=== PATIENT | male | born 1960 | race Two or more races ===

== ENCOUNTER 2020-10-13 11:03 | Outpatient (REF) | payer MEDICARE, MEDICAID, SELFPAY ==
--- NOTE | ~2020-10-13 | XR_ITS ---
EXAMINATION: XR KNEE, LEFT CLINICAL INFORMATION: Pain COMPARISON: Previous exam January 2019 TECHNIQUE: Four views of the left knee. FINDINGS: Bone alignment is normal. No fracture or dislocation is seen. There is a new small soft tissue calcification or ossification projecting over the medial femoral tibial joint. This is seen on the AP and tunnel view only and measures 3 x 5 mm. There may be faint medial meniscal calcification. Joint spaces are otherwise normal. There is no joint effusion. XR/XR knee LT 4V IMPRESSION: New faint soft tissue calcification or ossification projecting over the medial femoral tibial joint.
== END 2020-10-13 11:04 | disposition home or self-care (01) ==
LOC: HO.XRAY 11:03
PROVIDERS: Visit Provider Nurse Practitioner Family
DX: M25.562 Pain in left knee (principal)
CPT/HCPCS: 73564

== ENCOUNTER 2020-12-01 08:07 | Outpatient (REF) | payer MEDICARE, MEDICAID, SELFPAY ==
--- NOTE | ~2020-12-01 | XR_ITS ---
EXAMINATION: XR knee LT 3V CLINICAL INFORMATION: Reason for Exam M25.569 - Pain in unspecified knee COMPARISON: None available at the time of this dictation. TECHNIQUE: Bilateral frontal standing, left lateral and patella sunrise view. FINDINGS: BONES: No fracture or dislocation is present. Postsurgical changes from prior ORIF distal femur right side. JOINTS: Mild narrowing of joint spaces suggest underlying degenerative osteoarthritis. No joint effusion. Patella properly positioned. SOFT TISSUE: Normal XR/XR knee LT 3V IMPRESSION: 1. Mild degenerative osteoarthritis left knee. 2. Postsurgical changes, ORIF distal right femur.
== END 2020-12-01 08:08 | disposition home or self-care (01) ==
LOC: HO.HOSX 08:07
PROVIDERS: Visit Provider Physician Assistant
DX: M25.561 Pain in right knee (principal); M25.562 Pain in left knee; M17.12 Unilateral primary osteoarthritis, left knee
CPT/HCPCS: 73562; 99202

== ENCOUNTER 2021-01-12 07:29 | Outpatient (REF) | payer MEDICARE, MEDICAID, SELFPAY ==
--- NOTE | ~2021-01-12 | US_ITS ---
EXAMINATION: US ABDOMEN COMPLETE CLINICAL INFORMATION: Abdominal distention. COMPARISON: Ultrasound abdomen 08/25/2018 and 12/15/2006. TECHNIQUE: Real-time imaging of the abdominal viscera. FINDINGS: PANCREAS: Normal. ABDOMINAL AORTA: The proximal, mid, and distal segments are normal in caliber. INFERIOR VENA CAVA: Visualized portions are normal. LIVER: Normal. The liver is normal in size. The liver contour is normal. Parenchymal echogenicity is normal. No focal hepatic lesion. There is no intrahepatic biliary duct dilatation seen. There is hepatopedal flow seen in the portal vein on Doppler exam. GALLBLADDER: Surgically absent. COMMON BILE DUCT: Normal in caliber measuring 0.4 cm in diameter. RIGHT KIDNEY: There are multiple anechoic cysts. 1. Upper pole cyst measures 0.8 x 0.5 x 0.8 cm. 2. Midpole cyst measures 1.6 x 1.4 x 1.5 cm. 3. Lower pole cyst measures 1.3 x 1.5 x 1.6 cm. 4. Lower pole cyst measures 0.9 x 0.7 x 0.7 cm. 5. Midpole cyst measures 1.1 x 0.7 x 0.8 cm. No echogenic calculi or hydronephrosis seen. The kidney measures 12.0 cm in maximum dimension. LEFT KIDNEY: There is an echogenic stone lower pole measuring 1.0 x 0.6 x 0.6 cm. There are several anechoic cysts. 1. An upper pole cyst measures 1.6 x 1.5 x 1.4 cm. 2. Upper pole cyst measures 0.8 x 0.9 x 1.1 cm. 3. A lower pole cyst measures 2.0 x 1.5 x 1.5 cm. 4. Lower pole cyst measures 0.6 x 0.6 x 0.6 cm. No hydronephrosis or focal parenchymal lesions. The kidney measures 11.7 cm in maximum dimension. SPLEEN: Normal. The spleen measures 9.9 cm in maximum dimension. Spleen measures 1.3 x 1.4 x 1.5 cm. FREE FLUID: None. US/US abdomen complete IMPRESSION: Bilateral renal cysts. Nonobstructive echogenic calculi lower pole left kidney. Small accessory splenule. Rest of the abdominal ultrasound is unremarkable.
== END 2021-01-12 07:30 | disposition home or self-care (01) ==
LOC: HO.US 07:29
PROVIDERS: Visit Provider Internal Medicine Geriatric Medicine
DX: R10.9 Unspecified abdominal pain (principal); K59.00 Constipation, unspecified
CPT/HCPCS: 76700

== ENCOUNTER 2021-06-27 13:50 | Outpatient (REF) | payer MEDICARE, MEDICAID, SELFPAY ==
[2021-06-27 16:29] LABS: Hematocrit 40.6 % (42.0-52.0); Hemoglobin 13.3 g/dl (14.0-18.0); Mean Corpuscular HGB Conc 32.8 g/dl (31.0-36.0); Mean Corpuscular Hemoglobin 28.8 pg (27.0-33.0); Mean Corpuscular Volume 87.9 fL (80.0-98.0); Mean Platelet Volume 9.5 fL (9.4-12.4); Platelet Count 255 X10*3/uL (160-400); Red Blood Count 4.62 X10*6/uL (4.60-5.80); Red Cell Distribution Width 12.5 % (11.0-16.0); White Blood Count 6.8 X10*3/uL (4.8-10.8)
[2021-06-27 17:10] LABS: Alanine Aminotransferase 19 U/L (0-40); Albumin Level 4.6 g/dL (3.5-5.0); Alkaline Phosphatase 69 U/L (39-117); Anion Gap 10 (12-20); Aspartate Amino Transferase 19 U/L (5-37); Bilirubin Total 0.7 mg/dL (0.0-1.0); Blood Urea Nitrogen 14 mg/dL (9-16); Calcium 9.4 mg/dL (8.4-10.2); Carbon Dioxide 31 mmol/L (22-29); Chloride 102 mmol/L (96-108); Estimated Glomerular Filt Rate > 60; Glucose Random 85 mg/dL (60-115); Potassium 4.4 mmol/L (3.3-5.1); Sodium 139 mmol/L (135-145); Total Protein 7.2 g/dL (6.5-8.0)
[2021-06-27 17:32] LABS: TSH reflex Free T4 1.17 uIU/mL (0.32-4.0)
[2021-06-27 17:38] LABS: Folate 17.4 ng/mL (> or = 4.0); Vitamin B12 376 pg/mL (200-900)
[2021-06-29 13:27] LABS: Transglutaminase Ab IgG <1.0 U/mL; Transglutaminase IgA <1.0 U/mL
[2021-07-02 14:21] LABS: Vitamin D 25-OH, D2 <4 ng/mL; Vitamin D 25-OH, D3 22 ng/mL; Vitamin D 25-OH, Total 22 ng/mL (30-100)
== END 2021-06-27 13:51 | disposition home or self-care (01) ==
LOC: HO.LAB 13:50
PROVIDERS: PCP Internal Medicine; Referring Provider Internal Medicine; Visit Provider Nurse Practitioner Family
DX: R10.11 Right upper quadrant pain (principal); R14.0 Abdominal distension (gaseous); R10.13 Epigastric pain; K58.1 Irritable bowel syndrome with constipation; K58.0 Irritable bowel syndrome with diarrhea; E55.9 Vitamin D deficiency, unspecified; K21.9 Gastro-esophageal reflux disease without esophagitis; Z12.11 Encounter for screening for malignant neoplasm of colon
CPT/HCPCS: 36415; 80053; 82306; 82607; 82746; 83516; 84443; 85027; Q3014

== ENCOUNTER 2021-06-29 11:26 | Outpatient (REF) | payer MEDICARE, MEDICAID, SELFPAY | END 2021-06-29 11:27 | disposition home or self-care (01) | LOC: HO.LNP 11:26 | PROVIDERS: Visit Provider Nurse Practitioner Family | DX: K21.9 Gastro-esophageal reflux disease without esophagitis (principal) | CPT/HCPCS: 87338 ==

== ENCOUNTER → 2021-08-01 14:36 | Outpatient (BNVA) | payer MEDICARE, MEDICAID, SELFPAY | PROVIDERS: PCP Internal Medicine; Referring Provider Internal Medicine; Visit Provider Nurse Practitioner Family | DX: Z12.11 Encounter for screening for malignant neoplasm of colon (principal); K21.9 Gastro-esophageal reflux disease without esophagitis; K58.1 Irritable bowel syndrome with constipation; K59.04 Chronic idiopathic constipation | CPT/HCPCS: 99212 ==

== ENCOUNTER 2021-09-06 15:51 | Outpatient (REF) | payer MEDICARE, MEDICAID, SELFPAY ==
[2021-09-06 16:09] LABS: MANUAL DIFF FLAG NO
[2021-09-06 16:36] LABS: Basophils Percent Auto 0.5 % (0-2); Eosinophils Absolute Auto 0.1 X10*3/uL (0.0-0.4); Eosinophils Percent Auto 1.2 % (0-4); Hematocrit 41.3 % (42.0-52.0); Hemoglobin 13.4 g/dl (14.0-18.0); Imm Gran Abs Auto 0.01 X10*3/uL (0.00-0.03); Imm Gran Pct Auto 0.1 % (0.0-0.4); Lymphocytes Absolute Auto 2.2 X10*3/uL (1.2-4.9); Lymphocytes Percent Auto 29.4 % (20-40); Mean Corpuscular HGB Conc 32.4 g/dl (31.0-36.0); Mean Corpuscular Hemoglobin 28.3 pg (27.0-33.0); Mean Corpuscular Volume 87.3 fL (80.0-98.0); Mean Platelet Volume 9.5 fL (9.4-12.4); Monocytes Absolute Auto 0.5 X10*3/uL (0.1-1.2); Monocytes Percent Auto 6.3 % (2-11); Neutrophils Absolute Auto 4.8 x10*3/uL (2.0-8.3); Neutrophils Percent Auto 62.5 % (45-73); Platelet Count 244 X10*3/uL (160-400); Red Blood Count 4.73 X10*6/uL (4.60-5.80); Red Cell Distribution Width 12.3 % (11.0-16.0); White Blood Count 7.6 X10*3/uL (4.8-10.8)
[2021-09-06 17:00] LABS: Alanine Aminotransferase 18 U/L (0-40); Albumin Level 4.4 g/dL (3.5-5.0); Alkaline Phosphatase 70 U/L (39-117); Anion Gap 11 (12-20); Aspartate Amino Transferase 18 U/L (5-37); Bilirubin Total 0.7 mg/dL (0.0-1.0); Blood Urea Nitrogen 12 mg/dL (9-16); Calcium 9.8 mg/dL (8.4-10.2); Carbon Dioxide 30 mmol/L (22-29); Chloride 105 mmol/L (96-108); Estimated Glomerular Filt Rate > 60; Glucose Random 97 mg/dL (60-115); Potassium 4.2 mmol/L (3.3-5.1); Sodium 142 mmol/L (135-145); Total Protein 7.5 g/dL (6.5-8.0)
== END 2021-09-06 15:52 | disposition home or self-care (01) ==
LOC: HO.LAB 15:51
PROVIDERS: PCP Internal Medicine; Visit Provider Nurse Practitioner Family
DX: R42 Dizziness and giddiness (principal)
CPT/HCPCS: 36415; 80053; 85025

== ENCOUNTER → 2021-10-31 10:38 | Outpatient (REF) | payer OTHER, SELFPAY ==
--- NOTE | 2021-10-31 10:41 | HM_ITS ---
* Total monitoring time 6 days and 23 hours. * Underlying rhythm is sinus. Average 77/Min. Range 47 to 149/Min. * No atrial fibrillation or flutter or AV blocks or pauses. * Rare supraventricular ectopy with minimal burden. Very brief runs noted but nothing sustained. * Rare ventricular ectopy with minimal burden. * No patient events. MTDD
== END ==
LOC: HO.CARD 10:38
PROVIDERS: PCP Internal Medicine; Visit Provider Nurse Practitioner Family
DX: R42 Dizziness and giddiness (principal)
CPT/HCPCS: 93242

== ENCOUNTER 2022-01-31 13:49 | Outpatient (REF) | payer OTHER, SELFPAY ==
--- NOTE | ~2022-01-31 | XR_ITS ---
EXAMINATION: XR ELBOW, RIGHT CLINICAL INFORMATION: Pain. COMPARISON: None TECHNIQUE: AP, lateral, and oblique views of the right elbow. FINDINGS: The bones and soft tissues are normal. No fracture or joint effusion. Alignment is anatomic. Joint spaces are maintained. XR/XR elbow RT min 3V IMPRESSION: Unremarkable right elbow exam.
== END 2022-01-31 13:50 | disposition home or self-care (01) ==
LOC: HO.HMGCX 13:49
DX: M25.521 Pain in right elbow (principal)
CPT/HCPCS: 73080

== ENCOUNTER → 2022-05-08 12:24 | Outpatient (BNVA) | payer OTHER, SELFPAY | PROVIDERS: PCP Internal Medicine; Visit Provider Physician Assistant | DX: M77.11 Lateral epicondylitis, right elbow (principal) | CPT/HCPCS: 20551; 99202; J1020 ==

== ENCOUNTER 2022-08-07 10:20 | Outpatient (REF) | payer OTHER, SELFPAY ==
[2022-08-07 10:33] LABS: MANUAL DIFF FLAG NO
[2022-08-07 10:59] LABS: Basophils Percent Auto 0.4 % (0-2); Eosinophils Absolute Auto 0.1 X10*3/uL (0.0-0.4); Eosinophils Percent Auto 1.5 % (0-4); Hematocrit 41.3 % (42.0-52.0); Hemoglobin 13.4 g/dl (14.0-18.0); Imm Gran Abs Auto 0.01 X10*3/uL (0.00-0.03); Imm Gran Pct Auto 0.1 % (0.0-0.4); Lymphocytes Absolute Auto 2.2 X10*3/uL (1.2-4.9); Lymphocytes Percent Auto 32.9 % (20-40); Mean Corpuscular HGB Conc 32.4 g/dl (31.0-36.0); Mean Corpuscular Hemoglobin 28.2 pg (27.0-33.0); Mean Corpuscular Volume 86.8 fL (80.0-98.0); Mean Platelet Volume 9.2 fL (9.4-12.4); Monocytes Absolute Auto 0.6 X10*3/uL (0.1-1.2); Monocytes Percent Auto 8.5 % (2-11); Neutrophils Absolute Auto 3.8 x10*3/uL (2.0-8.3); Neutrophils Percent Auto 56.6 % (45-73); Platelet Count 228 X10*3/uL (160-400); Red Blood Count 4.76 X10*6/uL (4.60-5.80); Red Cell Distribution Width 12.2 % (11.0-16.0); White Blood Count 6.7 X10*3/uL (4.8-10.8)
[2022-08-07 11:38] LABS: Alanine Aminotransferase 21 U/L (0-40); Albumin Level 4.7 g/dL (3.5-5.0); Alkaline Phosphatase 67 U/L (39-117); Anion Gap 10 (12-20); Aspartate Amino Transferase 23 U/L (5-37); Bilirubin Total 0.8 mg/dL (0.0-1.0); Blood Urea Nitrogen 11 mg/dL (9-16); Calcium 9.6 mg/dL (8.4-10.2); Carbon Dioxide 31 mmol/L (22-29); Chloride 102 mmol/L (96-108); Cholesterol 197 mg/dL; Estimated Glomerular Filt Rate > 60; Glucose Fasting 102 mg/dL (60-99); HDL Cholesterol 50 mg/dL; LDL Cholesterol Calculated 124 mg/dl; Potassium 4.4 mmol/L (3.3-5.1); Sodium 139 mmol/L (135-145); Total Protein 7.3 g/dL (6.5-8.0); Triglycerides 119 mg/dL; Vitamin D 25-OH Total 29.9 ng/mL (>30)
== END 2022-08-07 10:21 | disposition home or self-care (01) ==
LOC: HO.LAB 10:20
PROVIDERS: PCP Internal Medicine; Visit Provider Internal Medicine
DX: I10 Essential (primary) hypertension (principal); R42 Dizziness and giddiness; E78.5 Hyperlipidemia, unspecified; E55.9 Vitamin D deficiency, unspecified
CPT/HCPCS: 36415; 80053; 80061; 82306; 85025

== ENCOUNTER 2022-10-18 09:38 | Day surgery (SDC) | payer OTHER, SELFPAY ==
[2022-10-18 11:36] VITALS: BP 139/67; PULSE 86; RESP 16; TEMP 36.4; O2SAT 98; BMI 29.8
--- NOTE | 2022-10-18 11:39 | MHC.SHP ---
Pre-Procedural Eval Section A Date of Service: 10/18/22 The patient is an INPATIENT: No The History & Physical has been completed within 30 days and I have reviewed it.: No Section B Chief Complaint: screening, chronic constipation Details of Present Illness: Colon cancer screening, chronic constipation Relevant Family History (Specify if Yes): No Relevant Social History: None Present Medications: see Short Stay Collaborative assessment Medical History: Significant History (Dyslipidemia Dyspepsia Essential hypertension) History of Previous Operations: Relevant previous surgery/procedure and date(s) (Hx laparoscopic cholecystectomy Hx of colonoscopy Right leg injury) Allergies: Allergies Allergy/AdvReac Type Severity Reaction Status Date / Time No Known Allergies Allergy Verified 09/11/22 15:59 [No Known Allergies*] Review of Systems Sugical H&P ROS: Negative: Constitution, Cardiovascular, Respiratory and Gastrointestinal Exam Surgical H&P Exam: Normal: Heart, Normal: Lungs, Normal: Extremities and Normal: Abdomen Plan Diagnosis/Plan: Unchanged I have reviewed the history and physical and performed a pertinent physical examination on my patient. No changes have occurred unless specified. Time Spent With Patient Time: Total time managing care of this patient today ____ minutes.
--- NOTE | 2022-10-18 11:40 | PM.OP ---
Brief Operative Note Date of Service: 10/18/22 Pre-op diagnosis: Colon cancer screening, chronic constipation Post-op diagnosis: other (Colon polyps, diverticulosis, hemorrhoids) Procedure: COLONOSCOPY TILL CECUM WITH BIOPSIES Surgeon: Janel Gerard MD Anesthesia: MAC Was an Doping Supervisor used for this Procedure?: Yes Doping Supervisor: Jelena Arechiga Estimated blood loss (mL): 0 Pathology: other (A. cecal polyp vs. fold B. rectal polyp) Condition: stable Disposition: PACU
--- NOTE | 2022-10-18 11:41 | P.OP_ITS ---
Operative Note Operative Note Date of Service: 10/18/22 Narrative: Pre-op diagnosis: Colon cancer screening, chronic constipation Post-op diagnosis:?other (Colon polyps, diverticulosis, hemorrhoids) Surgeon: Janel Gerard MD Anesthesia:?MAC COLONOSCOPY TILL CECUM WITH BIOPSIES Consent: Indications for the procedure and potential complications of bleeding, perforation, reaction to medications and missed diagnosis were discussed with the patient and informed consent was obtained. Instrument: Olympus PCF H 190 L variable stiffness pediatric colonoscope Monitoring: Vital signs and clinical assessment, intermittent blood pressure monitoring, continuous EKG monitoring, Pulse oximetry and Carbon Dioxide monitoring were done throughout the procedure. Colon withdrawl time was 18 minutes. Procedure: The patient was placed in the left lateral decubitis position and pre-procedure medications were administered. After a digital rectal examination of the ano-rectum, the video colonoscope was inserted into the rectum and advanced through the colon to the cecum. The colonoscope was slowly withdrawn in a retrograde panoramic fashion and the colon mucosa was carefully examined including a retroflexed view of the rectum. Findings and interventions are described below. Procedure Difficulty: Without difficulty Findings: Terminal Ileum: Not evaluated Cecum: A ? 4-5 mm polyp versus fold adjacent to the appendicular orifice - biopsied Ascending Colon: Normal Transverse Colon: Normal Descending Colon: Normal Sigmoid Colon: Moderate diverticulosis Rectum: A 5-6 mm diminutive appearing polyp - biopsied Ano-rectum: Moderate internal hemorrhoids Colon preparation: Good after some irrigation Impression and Post Procedure Diagnosis: Colonoscopy Findings: Two small polyps removed Moderate diverticulosis seen in the sigmoid colon Moderate hemorrhoids on retroflexed exam. Plan: Await pathology results Patient has an appointment on 11/01/22 in the GI Clinic with Amber Rutledge FNP- [facility]. Repeat Colonoscopy interval based on path results - in 5 years if polyps are adenomatous and 10 years if polyps are hyperplastic. Above findings were reviewed with the patient and colon polyps and diverticulosis handouts were given in the discharge area
--- NOTE | 2022-10-18 13:43 | P.CONAN_ITS ---
HPI - Anesthesia Eval Consult details Narrative: screening chronic constipation [facility] Active Problems Active Problems: All Active Problems (Updated 09/11/22 @ 16:10 by HEMANTH Choe) Low back pain (Acute) Physical exam (Acute) Lateral epicondylitis, right elbow (Acute) Right elbow pain (Acute) Hypovitaminosis D (Acute) Conjunctivitis (Acute) Chronic constipation (Acute) Dizziness (Acute) Screen for colon cancer (Acute) Dyspepsia (Acute) Dyslipidemia (Acute) Essential hypertension (Acute) Osteoarthritis of left knee (Acute) Knee pain (Acute) Past Medical History Medical History Chronic constipation Dyslipidemia Dyspepsia Essential hypertension Screen for colon cancer Family History Family History Mother Heart problem Father No problems noted. Family history of problems with anesthesia: No Surgical History Surgical History Hx laparoscopic cholecystectomy Hx of colonoscopy Right leg injury History of Problems with Anesthesia: No Social History Social History Housing: House Alcohol intake: never Patient Tobacco Use Status: Never used Tobacco e-Cigarette/Vaping Use: Never Used Second Hand Smoke Exposure: No Use of substances other than those prescribed or required for medical reasons: No Are you DNR?: No Advance Directives: No Advance Directives Information Provided: Yes Advance Directives on File: No service: No Current occupational status: disabled Current occupation: rt hand Cognitive needs: No Hearing needs: No Vision needs: Yes Meds Allergies Allergy/AdvReac Type Severity Reaction Status Date / Time No Known Allergies Allergy Verified 09/11/22 15:59 [No Known Allergies*] Exam Exam Date and Time: October 18, 2022 1343 Height,Weight and Vital Signs: Height 5 ft 9 in Weight 91.626 kg Last Vital Signs Temp 97.6 F 10/18/22 11:36 Pulse 86 10/18/22 11:36 Resp 16 10/18/22 11:36 BP 139/67 10/18/22 11:36 Pulse Ox 98 10/18/22 11:36 O2 Del Method 10/18/22 11:36 Airway Mallampati Class: II TM Dist: >3cm Neck ROM: Full Heart: rr Lungs: cta Assessment and Plan Assessment Anesthesia Assessment: Anesthesia Plan Discussed and Chart Reviewed Final Anesthetic Review Family History of Problems with Anesthesia: No History of Problems with Anesthesia: No NPO: Yes ASA Class: II Final Preanesthetic Review: No Changes in Pt Med Stat, Meds/Allgs Chart Reviewed, Consent Obtained/Reviewed and Anes Risks/Benef Reviewed Patient Risk: Low Procedure Risk: Low Anesthetic Plan Anesthetic Plan: MAC: Disposition: Standard PACU
[2022-10-18 13:56] VITALS: BP 99/46; PULSE 78; RESP 16; TEMP 36.1; O2SAT 95
[2022-10-18 14:11] VITALS: BP 116/68; PULSE 71; RESP 16; O2SAT 97
== END 2022-10-18 15:25 | disposition home or self-care (01) ==
PROVIDERS: PCP Internal Medicine; Visit Provider Internal Medicine Gastroenterology
PROC: 0DJD8ZZ Inspection of Lower Intestinal Tract, Via Natural or Artificial Opening Endoscopic (ICD-10-PCS; CPT 45378; principal; 2022-10-18 11:50)
DX: Z12.11 Encounter for screening for malignant neoplasm of colon (principal); K63.5 Polyp of colon; K62.1 Rectal polyp; K57.30 Diverticulosis of large intestine without perforation or abscess without bleeding; K64.8 Other hemorrhoids; K59.04 Chronic idiopathic constipation; K58.1 Irritable bowel syndrome with constipation; R10.13 Epigastric pain; K21.9 Gastro-esophageal reflux disease without esophagitis; I10 Essential (primary) hypertension; E78.5 Hyperlipidemia, unspecified; Z90.49 Acquired absence of other specified parts of digestive tract
CPT/HCPCS: 45380; 88305

== ENCOUNTER → 2022-11-01 14:13 | Outpatient (BNVA) | payer OTHER, SELFPAY | PROVIDERS: PCP Internal Medicine; Visit Provider Nurse Practitioner Family | DX: K59.09 Other constipation (principal); K21.9 Gastro-esophageal reflux disease without esophagitis; Z98.890 Other specified postprocedural states | CPT/HCPCS: 99212 ==

== ENCOUNTER 2023-08-19 17:39 | Emergency (ER) | payer OTHER, SELFPAY ==
[2023-08-19 18:23] VITALS: BP 163/74; PULSE 78; RESP 18; TEMP 37.1; O2SAT 98; BMI 29.8
--- NOTE | 2023-08-19 18:25 | ED_ITS ---
HPI - General Adult General Chief complaint: Neck Pain/Injury Stated complaint: Neck Pain Time Seen by Provider: 08/19/23 18:31 Source: patient and RN notes reviewed Mode of arrival: ambulatory Limitations: no limitations History of Present Illness HPI narrative: This is a 62-year-old male presenting to the emergency department with complaints of neck pain x3 days. Patient denies any recent trauma or injury. He states that he woke up with the pain. He has progressively gotten increased stiffness in his neck and his shoulders. Reports history of similar symptoms in the past. He endorses slight headache. No fevers, chills, dizziness, chest pain, shortness breath, abdominal pain, nausea, vomiting or diarrhea. No other complaints or concerns at this time. MD complaint: Neck pain, stiffness Onset (ago): day(s) Location: neck Radiation: non-radiation Quality: aching Pain Consistency: constant Relieving factors: none Exacerbating factors: none Associated symptoms: denies other symptoms Treatments prior to arrival: none Related Data Previous Rx's Medication Instructions Recorded aspirin 81 mg chewable tablet 81 mg PO DAILY 90 days #90 tabs 11/19/21 esomeprazole magnesium 40 mg 40 mg PO DAILY #90 caps 11/01/22 capsule,delayed release (Nexium) polyethylene glycol 3350 17 17 g PO DAILY #510 grams 11/01/22 gram/dose oral powder (Miralax) cetirizine 10 mg tablet 10 mg PO DAILY PRN allergy 02/13/23 symptoms 30 days #30 tabs triamcinolone acetonide 0.1 % 1 appl topical DAILY 2 weeks #30 02/13/23 topical cream grams triamcinolone acetonide 55 mcg 1 spray intranasal DAILY 30 days 02/13/23 nasal spray aerosol (Nasacort) #16.9 mL cholecalciferol (vitamin D3) 25 25 mcg PO DAILY 90 days #90 caps 04/21/23 mcg (1,000 unit) capsule simvastatin 20 mg tablet 20 mg PO BEDTIME 90 days #90 tabs 05/12/23 lisinopril 20 mg tablet 20 mg PO DAILY #90 tabs 07/03/23 metoprolol succinate 25 mg 12.5 mg (1/2 x 25 mg) PO BID 90 07/28/23 tablet,extended release 24 hr days #90 tabs acetaminophen 500 mg tablet 500 mg PO Q6H PRN fever or pain 08/19/23 (Tylenol Extra Strength) #30 tabs cyclobenzaprine 10 mg tablet 10 mg PO TID PRN muscle spasm #14 08/19/23 tabs ibuprofen 600 mg tablet 600 mg PO Q6H PRN fever or pain 08/19/23 #30 tabs lidocaine 5 % topical patch 1 patch topical DAILY #30 ea 08/19/23 Allergies Allergy/AdvReac Type Severity Reaction Status Date / Time No Known Allergies Allergy Verified 02/13/23 14:47 [No Known Allergies*] Review of Systems Review of Systems: Yes all other systems are reviewed and are negative Constitutional: Constitutional: Reports as per [facility] Past Medical History Attestation statement: The following information was validated with the patient. Onset Date is defined in the Problem List Problems that require an onset date and time if occurred within 24 hrs of arrival to the ED Aortic Dissection and Rupture; Neurologic impairment; Cardiopulmonary Arrest; Endotracheal Intubation; Insertion or Replacement of Mechanical Circulatory Assist Device Medical History Chronic constipation Screen for colon cancer Dyspepsia Dyslipidemia Essential hypertension Surgical History Hx laparoscopic cholecystectomy Hx of colonoscopy Right leg injury Family History Family History Mother Heart problem Father No problems noted. Social History Social History Housing: House Alcohol intake: never Patient Tobacco Use Status: Never used Tobacco e-Cigarette/Vaping Use: Never Used Second Hand Smoke Exposure: No Advance Directives: No Advance Directives Information Provided: No service: No Current occupational status: disabled Current occupation: rt hand Cognitive needs: No Hearing needs: No Vision needs: Yes Physical Exam ED Vital Signs: Vital Signs - 24 hr 08/19/23 18:23 Temperature 98.7 F Pulse Rate 78 Respiratory Rate 18 Blood Pressure 163/74 H Pulse Oximetry 98 Oxygen Delivery Method Room Air BMI result Body Mass Index 29.8 Const General: cooperative, comfortable and no acute distress Orientation/consciousness: patient oriented x3 Limitations: no limitations HENMT Head: Yes normal to inspection, Yes normocephalic and Yes atraumatic Ears: hearing grossly normal bilaterally General nose exam: Normal external nose present Face and sinus: Yes normal facial exam Mouth: Normal oral and palatal mucosa present, oropharynx normal and moist mucous membranes Throat: Yes posterior oropharynx normal Eyes General: appearance normal, both eyes and all related structures Eyelids: Yes eyelids normal Conjunctivae: conjunctivae normal Sclerae: sclerae normal Pupils: Equal, round and reactive pupils present EOM: EOMs intact bilaterally Neck Other: bilateral cervical paraspinous muscles with significant spasm into bilateral trapezius. Tenderness palpation. Limited range of motion of the neck secondary to pain. Able to touch chin to chest, limited extension secondary to pain and spasm. Neck: Yes normal visual inspection, Yes full ROM and Yes no lymphadenopathy Lymphatic: no lymphadenopathy noted Chest Chest palpation & inspection: normal inspection of the chest Resp Effort & Inspection: normal respiratory effort and able to speak in complete sentences Auscultation: clear to auscultation bilaterally, no crackles, no rales, no rhonchi and no wheezes Cardio Rate: regular rate Rhythm: regular rhythm Heart sounds: S1 normal heart sound present and S2 normal heart sound present GI Inspection: Yes normal to inspection Skin General skin exam: no rashes or lesions noted Trauma: no lacerations or abrasions Wounds: no wounds Neuro General: patient oriented x3 and moves all extremities Cranial nerves: Yes CN's II-XII intact bilaterally, Yes Equal, round and reactive pupils present, Yes Nystagmus not present, Yes Normal facial strength present, Yes Midline tongue present and Yes Ability to bilaterally elevate shoulders present Cognition (Neuro): normal cognition Gait exam (Neuro): Normal gait present Motor exam (neuro): 5/5 motor strength present throughout Extrem General: Yes normal to inspection Right upper extremity: normal to inspection Left upper extremity: normal to inspection Right lower extremity: normal to inspection Left lower extremity: normal to inspection Course Reevaluation(s) Reevaluation #1: patient feeling much better after receiving medications. range of motion of neck improved.Symptoms consistent with spasmodic torticollis. Given strict return precautions, discharged on muscle relaxants, ibuprofen Tylenol and Lidod erm patches. Patient understands agrees with plan. Patient stable for discharge Medications Administered Discontinued Medications Generic Name Dose Route Start Last Admin Trade Name Freq PRN Reason Stop Dose Admin Diazepam 2 mg 08/19/23 18:27 08/19/23 18:36 Diazepam 2 Mg Tablet PO 08/19/23 18:28 2 mg ONCE ONE Administration Ketorolac Tromethamine 30 mg 08/19/23 18:27 08/19/23 18:36 Ketorolac Tromethamine 30 Mg/Ml Vial IM 08/19/23 18:28 30 mg ONCE ONE Administration Lidocaine 1 patch 08/19/23 18:27 08/19/23 18:36 Lidocaine 4 % Patch Adh..Patch TRANSDERMA 08/19/23 18:28 1 patch ONCE ONE Administration Protocol Medical Decision Making Medical Decision Making MDM Narrative: 62-year-old male presenting to the emergency department for evaluation of neck pain and stiffness x3 days. No trauma or injury. On arrival, blood pressure mildly elevated at 163/74. Patient with significant spasms in his cervical paraspinous muscles into his bilateral trapezius. Symptoms likely due to spasmodic torticollis. Will medicate with Valium, Lidoderm patches, and Toradol. is neurologically intact, no meningeal signs noted. Plan: Medicate and re-evaluate Differential Diagnosis Differential Diagnoses: The differential diagnosis associated with the presentation includes spasmodic torticollis, meningitis-unlikely, muscle strain Radiology Impression Discussion of test interpretation with radiology: I have reviewed the radiologist's reading. External Record Review External record reviewed: Inpatient record, Office record, Outpatient record, Prior outpatient labs, Prior outpatient radiology, Primary care record and Outside ED record Discharge Plan Discharge Clinical Impression: Spasmodic torticollis Patient Disposition: Home, Self-Care Instructions: Spasmodic Torticollis (ED) Additional Instructions: Your seen in the emergency department due to spasms in your neck. We medicated you with multiple prescriptions including an anti-inflammatory, muscle relaxant, and lidocaine patch. Please continually perform gentle range of motion of your neck, applying he can also help with your symptoms. Please take at home muscle relaxants as directed. This can cause drowsiness, do not drink alcohol or drive while taking this. You may alternate between ibuprofen and Tylenol as needed for pain. If any new or worsening symptoms occur including not but not limited to worsening pain, worsening neck pain or range of motion, fevers, please return for re-evaluation. Lo atendieron en urgencias debido a espasmos en el miquel. Lo medicamos con m?ltiples recetas, incluido un antiinflamatorio, un relajante muscular y un parche de lidoca?na. Realice continuamente un rango de movimiento suave de altman miquel; aplicarlo tambi?n puede ayudar con shavonne s?ntomas. [place] relajantes musculares en casa seg?n las indicaciones. [place] puede causar somnolencia, no kar alcohol ni conduzca mientras lo abby. Puede alternar entre ibuprofeno y Tylenol seg?n sea necesario para el dolor. Si se presenta alg?n s?ntoma nuevo o que empeora, incluidos, entre otros, un empeoramiento del dolor, un empeoramiento del dolor de miquel o de la amplitud de movimiento y fiebre, regrese para grisel reevaluaci?n. Prescriptions: New cyclobenzaprine 10 mg tablet 10 mg PO TID PRN (Reason: muscle spasm) Qty: 14 0RF ibuprofen 600 mg tablet 600 mg PO Q6H PRN (Reason: fever or pain) Qty: 30 0RF acetaminophen [Tylenol Extra Strength] 500 mg tablet 500 mg PO Q6H PRN (Reason: fever or pain) Qty: 30 0RF lidocaine 5 % adhesive patch,medicated 1 patch topical DAILY Qty: 30 0RF Rx Instructions: leave on most painful area for up to 12 hrs No Action cetirizine 10 mg tablet 10 mg PO DAILY PRN (Reason: allergy symptoms) 30 Days Qty: 30 0RF cholecalciferol (vitamin D3) 25 mcg (1,000 unit) capsule 25 mcg PO DAILY 90 Days Qty: 90 1RF simvastatin 20 mg tablet 20 mg PO BEDTIME 90 Days Qty: 90 2RF lisinopril 20 mg tablet 20 mg PO DAILY Qty: 90 0RF metoprolol succinate 25 mg tablet extended release 24 hr 12.5 mg PO BID 90 Days Qty: 90 1RF aspirin 81 mg tablet,chewable 81 mg PO DAILY 90 Days Qty: 90 1RF triamcinolone acetonide [Nasacort] 55 mcg aerosol,spray 1 spray intranasal DAILY 30 Days Qty: 16.9 0RF Rx Instructions: administer into each nostril triamcinolone acetonide 0.1 % cream 1 appl topical DAILY 14 Days Qty: 30 1RF polyethylene glycol 3350 [Miralax] 17 gram/dose powder 17 g PO DAILY Qty: 510 2RF esomeprazole magnesium [Nexium] 40 mg capsule,delayed release(DR/EC) 40 mg PO DAILY Qty: 90 5RF Interventions: ED Discharge Assessment Last Done: 08/19/23 20:27 Discharge Date/Time: 08/19/23 20:27
[2023-08-19] MEDS: Ketorolac Tromethamine 30 MG/ML VIAL IM (18:36)
[2023-08-19] MEDS: diazePAM 2 MG TABLET PO (18:36)
[2023-08-19] MEDS: Lidocaine 4 % Patch ADH..PATCH 1 PATCH TRANSDERMA (18:36)
== END 2023-08-19 20:27 | disposition home or self-care (01) ==
PROVIDERS: Emergency Provider Emergency Medicine; PCP Internal Medicine
DX: G24.3 Spasmodic torticollis (principal); I10 Essential (primary) hypertension; E78.5 Hyperlipidemia, unspecified
CPT/HCPCS: 96372; 99283; 99284; J1885

== ENCOUNTER 2023-08-26 15:47 | Outpatient (AMB) | payer OTHER, SELFPAY ==
[2023-08-26 15:53] VITALS: BP 120/62; PULSE 85; RESP 17; O2SAT 98; BMI 29.5
--- NOTE | 2023-08-26 15:53 | MHC.PC.OV ---
Vital Signs 08/26/23 15:53 Height 5 ft 9 in Weight 199 lb 8 oz BMI 29.5 BP 120/62 Blood Pressure Location Lt brachial Position Sitting Respiration 17 Pulse 85 Pulse Source Pulse Oximeter Pulse Oximetry (%) 98 Oxygen Delivery Method Room Air Intake Visit Reasons: Annual Exam Intake Note: Patient is here today for a physical. 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 Accompanied by: Self / Same As Patient Allergies No Known Allergies [No Known Allergies*] Allergy (Verified 08/26/23 16:10) Medication List - Last Reconciled 08/26/23 by Fina Thorpe MD acetaminophen (Tylenol Extra Strength) 500 mg PO Q6H PRN aspirin 81 mg PO DAILY 90 days cetirizine 10 mg PO DAILY PRN 30 days cholecalciferol (vitamin D3) 25 mcg PO DAILY 90 days cyclobenzaprine 10 mg PO TID PRN esomeprazole magnesium (Nexium) 40 mg PO DAILY ibuprofen 600 mg PO Q6H PRN lidocaine 5% 1 patch topical DAILY lisinopril 20 mg PO DAILY metoprolol succinate ER 12.5 mg (1/2 x 25 mg) PO BID 90 days polyethylene glycol 3350 (Miralax) 17 grams PO DAILY simvastatin 20 mg PO BEDTIME 90 days triamcinolone acetonide 0.1% 1 appl topical DAILY 2 weeks triamcinolone acetonide (Nasacort) 1 spray intranasal DAILY 30 days Tobacco use date assessed: 08/26/23 Fall risk assessment: No Falls in past year Last assessed Fall Risk: 08/26/23 Dental Screening Dental Screen Date: 08/26/23 Did you have a dental visit in the last 12 months?: Yes Did you have a dental problem in the last 6 months where you did not have access to dental care?: No Was dental information given to patient?: Patient has dentist HPI HPI Comments History of Present Illness Details This is a 62-year-old male that comes for his physical exam. Colonoscopy done 2022 shows hyperplastic polyp and next colonoscopy should be in 2032. Denies any chest pain or shortness of breath. Compliant with medications. [facility] Medical History Chronic constipation Screen for colon cancer Dyspepsia Dyslipidemia Essential hypertension Surgical History Hx laparoscopic cholecystectomy Hx of colonoscopy Right leg injury Family History Mother Heart problem Father No problems noted. Social History Housing: House Alcohol intake: never Patient Tobacco Use Status: Never used Tobacco e-Cigarette/Vaping Use: Never Used Second Hand Smoke Exposure: No service: No Current occupational status: disabled Current occupation: rt hand Cognitive needs: No Hearing needs: No Vision needs: Yes Questionnaire PHQ-9 Over the last 2 weeks, how often have you been bothered by any of the following problems? 1. Little interest or pleasure in doing things: not at all 2. Feeling down, depressed, or hopeless: not at all 3. Trouble falling or staying asleep, or sleeping too much: not at all 4. Feeling tired or having little energy: not at all 5. Poor appetite or overeating: not at all 6. Feeling bad about yourself - or that you are a failure or have let yourself or your family down: not at all 7. Trouble concentrating on things, such as reading the newspaper or watching television: not at all 8. Moving or speaking so slowly that other people could have noticed. Or the opposite - being so fidgety or restless that you have been moving around a lot more than usual: not at all 9. Thoughts that you would be better off or of hurting yourself in some way: not at all Total score: 0 Depression Screening Interpretation: Negative Depression Screening Done: Yes 62955 - PHQ-9 Billing: Yes Source: Developed by Drs. Austin Smith, Rosa Maria Ozuna, Clem Coffman and colleagues, with an educational giancarlo from [employer]. Thrive Questionnaire Date Thrive assessed: 08/26/23 I am a: Patient What is your living situation today?: I have a steady place to live Within the past 12 months, did the food you bought not last and you didn't have the money to get more?: Never true Within the past 12 months, did you worry whether your food would run out before you got money to buy more?: Never true Do you have trouble paying for medicines?: No Do you have trouble getting transportation to medical appointments?: No Do you have trouble paying your heating and electricity bill?: No Do you have trouble taking care of your child, family member or friend?: No Do you have trouble with day-to-day activities such as bathing, preparing meals, shopping, managing finances, etc.?: No Are you currently unemployed and looking for a job?: No Are you interested in more education?: No Please select the resources that you would like help with: None Currently or been in a relationship where the following occur: no concerns reported AUDIT C Alcohol Use Questionnaire (AUDIT-C) 1. How often do you have a drink containing alcohol?: Never 3. How often do you have six or more drinks on one occasion?: Never Total Score: 0 Score Reviewed/Action Taken: No BLANCA-7 AMB Questionnaire LBANCA-7 Date BLANCA - 7 assessed: 08/26/23 Feeling nervous, anxious, or on edge: 0 = Not at all Not being able to stop or control worryin = Not at all Worrying too much about different things: 0 = Not at all Trouble relaxin = Not at all Being so restless that it is hard to sit still: 0 = Not at all Becoming easily annoyed or irritable: 0 = Not at all Feeling afraid as if something awful might happen: 0 = Not at all Total BLANCA-7 score (0-4 normal; 5-9 mild; 10-14 moderate; 15-21 severe): 0 Source: Developed by Drs. Austin Smith, Rosa Maria Ozuna, Clem Coffman and colleagues, with an educational giancarlo from [employer]. BLANCA-7 Assessment Billing BLANCA-7 Assessment Tool: BLANCA-7 Assessment 03002 Review of Systems Const All systems reviewed & are unremarkable except as noted in HPI and below Eyes Reports no additional complaints, Denies change in vision and Denies other visual disturbances Card Denies chest pain at rest, Denies chest pain with activity, Denies edema, Denies irregular heart rhythm, Denies claudication, Denies dyspnea, Denies dyspnea on exertion, Denies orthopnea, Denies paroxysmal nocturnal dyspnea and Denies slow heart rate Resp Denies cough, Denies dyspnea and Denies dyspnea on exertion GI Denies abdominal pain, Denies change in bowel habits, Denies excessive flatus, Denies nausea and Denies vomiting Denies urinary hesitancy, Denies urinary incontinence and Denies urinary urgency Musc Denies abnormal gait, Denies atrophy, Denies deformity and Denies limited range of motion Skin/Breast Denies bleeding lesions, Denies changing lesions and Denies rash Neuro Denies abnormal gait, Denies behavioral changes, Denies confusion and Denies lack of coordination Psych Denies behavioral changes and Denies confusion Physical exam (Primary Care) Vital Signs: Last Vital Signs Pulse 85 08/26/23 15:53 Resp 17 08/26/23 15:53 BP 120/62 08/26/23 15:53 Pulse Ox 98 08/26/23 15:53 Oxygen Delivery Method Room Air 08/26/23 15:53 BMI result Body Mass Index 29.5 Tobacco/Smoking Status: Tobacco use Status Tobacco use date assessed 08/26/23 08/26/23 15:55 Patient Tobacco Use Status Never used Tobacco 08/26/23 15:55 e-Cigarette/Vaping Use Never Used 08/26/23 15:55 PHQ-9: PHQ-9 Score PHQ-9: Total score 0 08/26/23 15:55 Depression Screening Interpretation: Negative Thrive Assessment: Date of Thrive Assessment Date Thrive assessed 08/26/23 08/26/23 15:55 Currently or been in a relationship where the following occur: no concerns reported Const General: No confusion Orientation/consciousness: patient oriented x3 and No confusion HENMT Head: Yes normal to inspection, Yes normocephalic and Yes atraumatic Ears: external ears normal Eyes General: appearance normal, both eyes and all related structures Eyelids: Yes eyelids normal Conjunctivae: conjunctivae normal Neck Neck: Yes normal visual inspection and Yes supple Resp Effort & Inspection: normal respiratory effort Auscultation: clear to auscultation bilaterally Cardio Jugular venous distension: no JVD Rate: regular rate Rhythm: regular rhythm Heart sounds: S1 normal heart sound present and S2 normal heart sound present GI Inspection: Yes normal to inspection Palpation (GI): Soft to palpation and nontender Auscultation: normal bowel sounds Skin General skin exam: no rashes or lesions noted Neuro General: patient oriented x3, no focal motor deficits and No confusion Extrem General: Yes full ROM Psych Appearance: grossly normal Assessment and Plan Assessment & Plan (1) Physical exam: Code(s): Z00.00 - Encounter for general adult medical examination without abnormal findings Plan: Repeat in a year. Orders: Orders Lipid Panel Today E78.5 - Hyperlipidemia, unspecified Comprehensive [place]. Panel Fast Today Z00.00 - Encounter for general adult medical examination without abnormal findings Vitamin D 25-OH Total Today E55.9 - Vitamin D deficiency, unspecified Coding Level of Care Code Est Pt Prev Care 40-64y(20786) Diagnoses Physical exam Z00.00 Additional Codes BLANCA-7 Assessment Billing - BLANCA-7 Assessment Tool: BLANCA-7 Assessment 10326 ([id number]) Time Spent (min) 31
== END 2023-08-26 16:17 | disposition home or self-care (01) ==
PROVIDERS: Visit Provider Internal Medicine
DX: Z00.00 Encounter for general adult medical examination without abnormal findings (principal)
CPT/HCPCS: 99396

== ENCOUNTER 2024-02-23 08:43 | Outpatient (REF) | payer OTHER, SELFPAY ==
[2024-02-23 08:55] LABS: MANUAL DIFF FLAG NO
[2024-02-23 09:35] LABS: Basophils Percent Auto 0.5 % (0-2); Eosinophils Absolute Auto 0.2 X10*3/uL (0.0-0.4); Eosinophils Percent Auto 2.9 % (0-4); Hematocrit 39.5 % (42.0-52.0); Hemoglobin 12.9 g/dl (14.0-18.0); Imm Gran Abs Auto 0.01 X10*3/uL (0.00-0.03); Imm Gran Pct Auto 0.2 % (0.0-0.4); Lymphocytes Absolute Auto 1.5 X10*3/uL (1.2-4.9); Lymphocytes Percent Auto 27.3 % (20-40); Mean Corpuscular HGB Conc 32.7 g/dl (31.0-36.0); Mean Corpuscular Hemoglobin 28.6 pg (27.0-33.0); Mean Corpuscular Volume 87.6 fL (80.0-98.0); Mean Platelet Volume 9.4 fL (9.4-12.4); Monocytes Absolute Auto 0.5 X10*3/uL (0.1-1.2); Monocytes Percent Auto 8.1 % (2-11); Neutrophils Absolute Auto 3.4 x10*3/uL (2.0-8.3); Platelet Count 223 X10*3/uL (160-400); Red Blood Count 4.51 X10*6/uL (4.60-5.80); Red Cell Distribution Width 12.7 % (11.0-16.0); White Blood Count 5.6 X10*3/uL (4.8-10.8)
[2024-02-23 10:07] LABS: Alanine Aminotransferase 19 U/L (0-40); Albumin Level 4.5 g/dL (3.5-5.0); Alkaline Phosphatase 64 U/L (39-117); Anion Gap 11 (12-20); Aspartate Amino Transferase 20 U/L (5-37); Bilirubin Total 0.6 mg/dL (0.0-1.0); Blood Urea Nitrogen 16 mg/dL (9-16); Calcium 9.2 mg/dL (8.4-10.2); Carbon Dioxide 27 mmol/L (22-29); Chloride 106 mmol/L (96-108); Cholesterol 193 mg/dL (<200); Estimated Glomerular Filt Rate > 60; Glucose Fasting 114 mg/dL (60-99); HDL Cholesterol 48 mg/dL (>40); Iron 70 mcg/dL (45-160); LDL Cholesterol Calculated 124 mg/dL (<100); Percent Iron Saturation 26 % (15-50); Potassium 4.4 mmol/L (3.3-5.1); Sodium 140 mmol/L (135-145); Total Iron Binding Capacity 268 mcg/dL (228-428); Total Protein 7.4 g/dL (6.5-8.0); Triglycerides 109 mg/dL (<150); Unsaturated Iron Binding 198 ug/dL
[2024-02-23 10:22] LABS: HIV AB/AG Nonreactive (Nonreactive); HIV Num 1 0.05 S/CO (0.00-0.99)
[2024-02-23 10:23] LABS: Vitamin D 25-OH Total 45.7 ng/mL (>30)
[2024-02-23 11:04] LABS: PSA,Total (Free>4and<10) 2.54 ng/mL (0.00-4.00)
== END 2024-02-23 08:44 | disposition home or self-care (01) ==
LOC: HO.LAB 08:43
PROVIDERS: PCP Internal Medicine; Visit Provider Internal Medicine
DX: Z00.00 Encounter for general adult medical examination without abnormal findings (principal); E78.5 Hyperlipidemia, unspecified; Z11.4 Encounter for screening for human immunodeficiency virus [HIV]; D64.9 Anemia, unspecified; E55.9 Vitamin D deficiency, unspecified; Z12.5 Encounter for screening for malignant neoplasm of prostate
CPT/HCPCS: 36415; 80053; 80061; 82306; 83540; 84153; 85025; 87389

== ENCOUNTER 2024-03-02 10:20 | Outpatient (AMB) | payer OTHER, SELFPAY ==
[2024-03-02 10:34] VITALS: BP 124/60; BMI 29.1
--- NOTE | 2024-03-02 10:34 | A.OFFPC_ITS ---
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 Accompanied by: Self / Same As Patient Allergies No Known Allergies [No Known Allergies*] Allergy (Verified 03/02/24 10:45) Medication List - Last Reconciled 03/02/24 by Fina Thorpe MD acetaminophen (Tylenol Extra Strength) 500 mg PO Q6H PRN aspirin 81 mg PO DAILY 90 days cetirizine 10 mg PO DAILY PRN 30 days cholecalciferol (vitamin D3) 25 mcg PO DAILY 90 days cyclobenzaprine 10 mg PO TID PRN ibuprofen 600 mg PO Q6H PRN lidocaine 5% 1 patch topical DAILY lisinopril 20 mg PO DAILY metoprolol succinate ER 12.5 mg (1/2 x 25 mg) PO BID 90 days polyethylene glycol 3350 (Miralax) 17 grams PO DAILY simvastatin 20 mg PO BEDTIME 90 days triamcinolone acetonide (Nasacort) 1 spray intranasal DAILY 30 days Tobacco use date assessed: 08/26/23 Fall risk assessment: No Falls in past year Last assessed Fall Risk: 03/02/24 Dental Screening Dental Screen Date: 08/26/23 HPI HPI Comments History of Present Illness Details This is a 63-year-old male with hypertension, pure hypercholesterolemia, chronic GERD and low back pain that comes today for follow-up on his conditions. Blood pressure stable. On statins for elevated cholesterol. He is complaining of GERD and has been present for over 5 years and has not had an endoscopy. I will start him on PPIs and refer her to Gastroenterology. He also complains of low back pain that has been on and off and sometimes required to go to the emergency room. I will refer him to pain management. No fever, bowel or bladder incontinence. Back pain does not radiate to the legs. [facility] Medical History (Updated 03/02/24 @ 15:50 by Fina Thorpe MD) Chronic constipation Screen for colon cancer Dyspepsia Dyslipidemia Essential hypertension Surgical History Hx laparoscopic cholecystectomy Hx of colonoscopy Right leg injury Family History Mother Heart problem Father No problems noted. Social History Housing: House Alcohol intake: never Patient Tobacco Use Status: Never used Tobacco e-Cigarette/Vaping Use: Never Used Second Hand Smoke Exposure: No service: No Current occupational status: disabled Current occupation: rt hand Cognitive needs: No Hearing needs: No Vision needs: Yes Questionnaire Thrive Questionnaire Date Thrive assessed: 08/26/23 BLANCA-7 AMB Questionnaire BLANCA-7 Date BLANCA - 7 assessed: 08/26/23 Source: Developed by Drs. Austin Smith, Rosa Maria Ozuna, Clem Coffman and colleagues, with an educational giancarlo from [employer]. Review of Systems Const All systems reviewed & are unremarkable except as noted in HPI and below Card Denies chest pain at rest, Denies chest pain with activity, Denies edema, Denies irregular heart rhythm, Denies claudication, Denies orthopnea, Denies paroxysmal nocturnal dyspnea and Denies slow heart rate Physical exam (Primary Care) Vital Signs: Last Vital Signs BP 124/60 03/02/24 10:34 BMI result Body Mass Index 29.1 Tobacco/Smoking Status: Tobacco use Status Tobacco use date assessed 08/26/23 03/02/24 10:40 Patient Tobacco Use Status Never used Tobacco 03/02/24 10:40 e-Cigarette/Vaping Use Never Used 03/02/24 10:40 Thrive Assessment: Date of Thrive Assessment Date Thrive assessed 08/26/23 03/02/24 10:40 Neck Neck: Yes normal visual inspection and Yes supple Resp Effort & Inspection: normal respiratory effort Auscultation: clear to auscultation bilaterally Cardio Jugular venous distension: no JVD Rate: regular rate Rhythm: regular rhythm Heart sounds: S1 normal heart sound present and S2 normal heart sound present Extrem General: Yes full ROM Assessment and Plan Assessment & Plan (1) Chronic GERD: Code(s): K21.9 - Gastro-esophageal reflux disease without esophagitis Plan: Start PPIs. Referred to Gastroenterology. (2) Essential hypertension: Code(s): I10 - Essential (primary) hypertension Plan: Continue lisinopril. Blood pressure goal is equal or less than 130/80. (3) Dyslipidemia: Code(s): E78.5 - Hyperlipidemia, unspecified Plan: Continue statins. (4) Chronic constipation: Code(s): K59.09 - Other constipation Plan: Continue MiraLax. (5) Low back pain: Code(s): M54.50 - Low back pain, unspecified Qualifiers: Chronicity: chronic Back pain laterality: unspecified Sciatica presence: without sciatica Qualified Code(s): M54.50 - Low back pain, unspecified; G89.29 - Other chronic pain Plan: Referred to pain management. Orders: Orders Complete Blood Count Auto Diff 6 Months D64.9 - Anemia, unspecified IRON PROFILE 6 Months D64.9 - Anemia, unspecified Lipid Panel 6 Months E78.5 - Hyperlipidemia, unspecified Comprehensive [place]. Panel Fast 6 Months K59.09 - Other constipation Referrals Gastroenterology Referral K21.9 - Gastro-esophageal reflux disease without esophagitis Pain Management Referral M54.50 - Low back pain, unspecified Medications: New ibuprofen 800 mg PO Q8H PRN 90 tabs 2RF pain 30 days omeprazole 20 mg PO DAILY 90 caps 1RF 90 days Refilled cyclobenzaprine 10 mg PO TID PRN 14 tabs 0RF muscle spasm simvastatin 20 mg PO BEDTIME 90 tabs 2RF 90 days metoprolol succinate ER 12.5 mg (1/2 x 25 mg) PO BID 90 tabs 1RF 90 days lisinopril 20 mg PO DAILY 90 tabs 0RF I10 - Essential (primary) hypertension lidocaine 5% leave on most painful area for up to 12 hrs 1 patch topical DAILY 30 ea 0RF Coding Level of Care Code Est Pt Level 4 (08322) Complex EM visit Add On G2211 Diagnoses Chronic GERD K21.9 Essential hypertension I10 Dyslipidemia E78.5 Chronic constipation K59.09 Chronic low back pain without sciatica, unspecified back pain laterality M54.50; G89.29 Chronicity: chronic Back pain laterality: unspecified Sciatica presence: without sciatica Time Spent (min) 22
== END 2024-03-02 10:57 | disposition home or self-care (01) ==
PROVIDERS: PCP Internal Medicine; Visit Provider Internal Medicine
DX: K21.9 Gastro-esophageal reflux disease without esophagitis (principal); I10 Essential (primary) hypertension; E78.5 Hyperlipidemia, unspecified; K59.09 Other constipation; M54.50 Low back pain, unspecified; G89.29 Other chronic pain
CPT/HCPCS: 99214; G2211

== ENCOUNTER 2024-08-12 10:13 | Outpatient (AMB) | payer OTHER, SELFPAY ==
--- NOTE | 2024-08-12 11:47 | MHC.OFFWIV ---
Intake Vital Signs 08/12/24 11:48 Height 5 ft 9 in Weight 200 lb BMI 29.5 BP 128/70 Blood Pressure Location Rt brachial Position Sitting Pulse 60 Pulse Source Pulse Oximeter Pulse Oximetry (%) 96 Oxygen Delivery Method Room Air Intake Visit Reasons: EP Pain/burn sensation stomach Intake Note: Patient here for reflux issues and feels like stomach is burning which started about 2-3 days ago. Patient Tobacco Use Status: Never used Tobacco Allergies No Known Allergies [No Known Allergies*] Allergy (Verified 08/12/24 11:49) Do you need a note to return to daycare/school/sports/work: No HPI EP Pain/burn sensation stomach HPI Details This note is constructed using voice recognition software. While every effort has been made to ensure accuracy, remnant sorter errors may have been included. The patient is a 63 year old male who presents to the clinic today with acid reflux symptoms for the past 2-3 days. He notes that he has been diagnosed with acid reflux and does take omeprazole regularly. He typically moves his bowels every other day. He denies nausea, vomiting, diarrhea, blood per rectum. He reports discomfort in the epigastric region, with a burning sensation. [facility] Medical History Chronic constipation Screen for colon cancer Dyspepsia Dyslipidemia Essential hypertension Surgical History Hx laparoscopic cholecystectomy Hx of colonoscopy Right leg injury Family History Mother Heart problem Father No problems noted. Social History Housing: House Alcohol intake: never Patient Tobacco Use Status: Never used Tobacco e-Cigarette/Vaping Use: Never Used Second Hand Smoke Exposure: No service: No Current occupational status: disabled Current occupation: rt hand Cognitive needs: No Hearing needs: No Vision needs: Yes Review of Systems Const All systems reviewed & are unremarkable except as noted in HPI and below Physical Exam Vital Signs: Last Vital Signs Pulse 60 08/12/24 11:48 BP 128/70 08/12/24 11:48 Pulse Ox 96 08/12/24 11:48 Oxygen Delivery Method Room Air 08/12/24 11:48 BMI result Body Mass Index 29.5 Const General: cooperative, healthy appearing, comfortable, no acute distress and well developed Orientation/consciousness: patient oriented x3 Limitations: no limitations HEENT Head: Yes normal to inspection Neck Neck: Yes normal visual inspection Resp Effort & Inspection: normal respiratory effort and able to speak in complete sentences Auscultation: clear to auscultation bilaterally Cardio Jugular venous distension: no JVD Rate: regular rate Rhythm: regular rhythm Heart sounds: S1 normal heart sound present, S2 normal heart sound present and normal S1 and S2 GI Inspection: Yes normal to inspection Palpation (GI): Soft to palpation and Tenderness to palpation present (GI) in the epigastrum Percussion: Yes normal to percussion Auscultation: Hypoactive bowel sounds present Skin General skin exam: no rashes or lesions noted Neuro General: patient oriented x3 Psych Appearance: grossly normal Attitude: cooperative Assessment & Plan Assessment & Plan (1) Acid reflux: Code(s): K21.9 - Gastro-esophageal reflux disease without esophagitis Qualifiers: Esophagitis presence: without esophagitis Qualified Code(s): K21.9 - Gastro-esophageal reflux disease without esophagitis Plan: Advised avoidance acidic foods, carbonated beverages, large meals, or anything to eat or drink within 2-3 hours of lying down. Consider trial famotidine for at least 2 weeks, for symptomatic management and then p.r.n. after that. Advised patient to follow up worsening or failure to resolve. (2) Constipation: Code(s): K59.00 - Constipation, unspecified Qualifiers: Constipation type: unspecified constipation type Qualified Code(s): K59.00 - Constipation, unspecified Plan: Advised to increase dietary or supplemental fiber. Advised to increase hydration and ambulation to help support symptoms. Advised follow up with PCP with ongoing or worsening symptoms. Plan See above for full details and plan. Medications: New famotidine 20 mg PO BEDTIME 14 days 14 tabs 0RF Coding Level of Care Code Est Pt Level 3 (22100) Diagnoses Gastroesophageal reflux disease without esophagitis K21.9 Esophagitis presence: without esophagitis Constipation, unspecified constipation type K59.00 Constipation type: unspecified constipation type
[2024-08-12 11:48] VITALS: BP 128/70; PULSE 60; O2SAT 96; BMI 29.5
== END 2024-08-12 12:54 | disposition home or self-care (01) ==
PROVIDERS: PCP Internal Medicine; Visit Provider Registered Nurse
DX: K21.9 Gastro-esophageal reflux disease without esophagitis (principal); K59.00 Constipation, unspecified

== ENCOUNTER → 2024-08-12 10:13 | Outpatient (BNVA) | payer OTHER, SELFPAY | PROVIDERS: PCP Internal Medicine; Visit Provider Registered Nurse | DX: K21.9 Gastro-esophageal reflux disease without esophagitis (principal); K59.00 Constipation, unspecified; R10.9 Unspecified abdominal pain | CPT/HCPCS: 99212 ==

== ENCOUNTER 2024-09-06 10:38 | Outpatient (AMB) | payer OTHER, SELFPAY ==
[2024-09-06 10:44] VITALS: BP 138/80; PULSE 107; O2SAT 97; BMI 29.6
--- NOTE | 2024-09-06 10:44 | MHC.PC.OV ---
Vital Signs 09/06/24 10:44 Height 5 ft 9 in Weight 200 lb 2 oz BMI 29.6 BP 138/80 Blood Pressure Location Lt brachial Position Sitting Pulse 107 H Pulse Source Pulse Oximeter Pulse Oximetry (%) 97 Oxygen Delivery Method Room Air Intake Visit Reasons: Annual Exam Intake Note: Patient here for an annual physical exam Tray Delivery Aide Required: Yes Tray Delivery Aide Language: College Scouting Coordinator Name: Fina Tohrpe MD Information Interpreted: non-clinical & clinical Accompanied by: Self / Same As Patient Allergies No Known Allergies [No Known Allergies*] Allergy (Verified 09/06/24 11:12) Medication List - Last Reconciled 09/06/24 by Fina hTorpe MD acetaminophen (Tylenol Extra Strength) 500 mg PO Q6H PRN aspirin 81 mg PO DAILY 90 days cetirizine 10 mg PO DAILY PRN 30 days cholecalciferol (vitamin D3) 25 mcg PO DAILY 90 days cyclobenzaprine 10 mg PO TID PRN famotidine 20 mg PO BEDTIME 14 days ibuprofen 800 mg PO Q8H PRN 30 days lidocaine 5% 1 patch topical DAILY lisinopril 20 mg PO DAILY metoprolol succinate ER 12.5 mg (1/2 x 25 mg) PO BID 90 days omeprazole 20 mg PO DAILY 90 days polyethylene glycol 3350 (Miralax) 17 grams PO DAILY simvastatin 20 mg PO BEDTIME 90 days triamcinolone acetonide (Nasacort) 1 spray intranasal DAILY 30 days Tobacco use date assessed: 09/06/24 Fall risk assessment: No Falls in past year Last assessed Fall Risk: 09/06/24 Dental Screening Dental Screen Date: 09/06/24 Did you have a dental visit in the last 12 months?: Yes Did you have a dental problem in the last 6 months where you did not have access to dental care?: No Was dental information given to patient?: Patient has dentist HPI HPI Comments History of Present Illness Details The patient is a 63-year-old male presenting with an interest in completing his annual physical examination with update on vaccinations. During the visit, the requirement for the pneumococcal vaccine was highlighted, as it is recommended for individuals at his age and above. Additionally, the patient has a history of abdominal pain, which has prompted him to take naproxen, providing some relief. The abdominal discomfort seems to be associated with back pain. The timeline or onset of these symptoms was not specified in the conversation; however, it was mentioned that the use of naproxen provided symptomatic relief. There are no further details provided on any specific diagnostic evaluations or previous medical interventions for these issues apart from the aforementioned ones. - Pneumococcal vaccine is recommended for administration as the patient is 63 years old. - Tetanus vaccination is up to date, with the last administration in 2019. - A colonoscopy has been performed, but results or if it was due are not discussed. - Pneumococcal vaccine is recommended for administration as the patient is 63 years old. - Tetanus vaccination is up to date, with the last administration in 2019. - A colonoscopy has been performed, but results or if it was due are not discussed. [facility] Medical History Chronic constipation Screen for colon cancer Dyspepsia Dyslipidemia Essential hypertension Surgical History Hx laparoscopic cholecystectomy Hx of colonoscopy Right leg injury Family History Mother Heart problem Father No problems noted. Social History Housing: House Alcohol intake: never Patient Tobacco Use Status: Never used Tobacco e-Cigarette/Vaping Use: Never Used Second Hand Smoke Exposure: No service: No Current occupational status: disabled Current occupation: rt hand Cognitive needs: No Hearing needs: No Vision needs: Yes Questionnaire PHQ-9 Over the last 2 weeks, how often have you been bothered by any of the following problems? 1. Little interest or pleasure in doing things: not at all 2. Feeling down, depressed, or hopeless: not at all 3. Trouble falling or staying asleep, or sleeping too much: not at all 4. Feeling tired or having little energy: not at all 5. Poor appetite or overeating: not at all 6. Feeling bad about yourself - or that you are a failure or have let yourself or your family down: not at all 7. Trouble concentrating on things, such as reading the newspaper or watching television: not at all 8. Moving or speaking so slowly that other people could have noticed. Or the opposite - being so fidgety or restless that you have been moving around a lot more than usual: not at all 9. Thoughts that you would be better off or of hurting yourself in some way: not at all Total score: 0 Depression Screening Interpretation: Negative Depression Screening Done: Yes 35679 - PHQ-9 Billing: Yes Source: Developed by Drs. Austin Smith, Rosa Maria Ozuna, Clem Coffman and colleagues, with an educational giancarlo from [employer]. Thrive Questionnaire Date Thrive assessed: 09/06/24 I am a: Patient What is your living situation today?: I have a steady place to live Within the past 12 months, did the food you bought not last and you didn't have the money to get more?: Never true Within the past 12 months, did you worry whether your food would run out before you got money to buy more?: Never true Do you have trouble paying for medicines?: No Do you have trouble getting transportation to medical appointments?: No Do you have trouble paying your heating and electricity bill?: No Do you have trouble taking care of your child, family member or friend?: No Do you have trouble with day-to-day activities such as bathing, preparing meals, shopping, managing finances, etc.?: No Are you currently unemployed and looking for a job?: Yes Are you interested in more education?: No Please select the resources that you would like help with: None Currently or been in a relationship where the following occur: I choose not to answer THRIVE Score: 0 AUDIT C Alcohol Use Questionnaire (AUDIT-C) 1. How often do you have a drink containing alcohol?: Never Total Score: 0 Score Reviewed/Action Taken: No BLANCA-7 AMB Questionnaire BLANCA-7 Date BLANCA - 7 assessed: 09/06/24 Feeling nervous, anxious, or on edge: 0 = Not at all Not being able to stop or control worryin = Not at all Worrying too much about different things: 0 = Not at all Trouble relaxin = Not at all Being so restless that it is hard to sit still: 0 = Not at all Becoming easily annoyed or irritable: 0 = Not at all Feeling afraid as if something awful might happen: 0 = Not at all Total BLANCA-7 score (0-4 normal; 5-9 mild; 10-14 moderate; 15-21 severe): 0 Source: Developed by Drs. Austin Smith, Rosa Maria Ozuna, Clem Coffman and colleagues, with an educational giancarlo from [employer]. BLANCA-7 Assessment Billing BLANCA-7 Assessment Tool: BLANCA-7 Assessment 87032 Review of Systems Const All systems reviewed & are unremarkable except as noted in HPI and below Card Denies chest pain at rest, Denies chest pain with activity, Denies edema, Denies irregular heart rhythm, Denies claudication, Denies dyspnea, Denies dyspnea on exertion, Denies orthopnea, Denies paroxysmal nocturnal dyspnea and Denies slow heart rate Resp Denies cough, Denies dyspnea and Denies dyspnea on exertion Physical exam (Primary Care) Vital Signs: Last Vital Signs Pulse 107 H 09/06/24 10:44 BP 138/80 09/06/24 10:44 Pulse Ox 97 09/06/24 10:44 Oxygen Delivery Method Room Air 09/06/24 10:44 BMI result Body Mass Index 29.6 Tobacco/Smoking Status: Tobacco use Status Tobacco use date assessed 09/06/24 09/06/24 10:46 Patient Tobacco Use Status Never used Tobacco 09/06/24 10:46 e-Cigarette/Vaping Use Never Used 09/06/24 10:46 PHQ-9: PHQ-9 Score PHQ-9: Total score 0 09/06/24 11:26 Depression Screening Interpretation: Negative Thrive Assessment: Date of Thrive Assessment Date Thrive assessed 09/06/24 09/06/24 10:46 Currently or been in a relationship where the following occur: I choose not to answer [facility] Head: Yes normal to inspection, Yes normocephalic and Yes atraumatic Ears: external ears normal Eyes General: appearance normal, both eyes and all related structures Eyelids: Yes eyelids normal Conjunctivae: conjunctivae normal Neck Neck: Yes normal visual inspection and Yes supple Resp Effort & Inspection: normal respiratory effort Auscultation: clear to auscultation bilaterally Cardio Jugular venous distension: no JVD Rate: regular rate Rhythm: regular rhythm Heart sounds: S1 normal heart sound present and S2 normal heart sound present GI Inspection: Yes normal to inspection Palpation (GI): Soft to palpation and nontender Auscultation: normal bowel sounds Skin General skin exam: no rashes or lesions noted Neuro General: no focal motor deficits Extrem General: Yes full ROM Psych Appearance: grossly normal Office Procedures Flu Questionnaire Does the patient have a severe egg allergy?: No Immunizations Fluarix Triv [id number] (PF) 45 mcg (15 mcg x 3)/0.5 mL IM syringe Performing Provider: Fina Thorpe MD Performing Location: [facility] Documented (not given) by: IFEANYI Bradshaw on 09/06/24 11:26 Reason Not Given: Patient Refused pneumoc 20-kar conj-dip cr(PF) 0.5 mL IM syringe Performing Provider: Fina Thorpe MD Performing Location: [facility] Administered by: Jelena Montiel LPN on 09/06/24 11:30 Dose Route Admin Location Dispensed Lot Number Expiration Date NDC Liv[employer] Nutrition Territory Manager 0.5 mL IM Right Deltoid 0.5 mL [id number] 01/14/26 0863-7618-72 [employer] VIS Given Date VIS Provided VIS Publication Date 09/06/24 Single Vaccine 21 Eligibility Eligibility Date Funding Source Not [facility] Eligible 09/06/24 Private Coding Level of Care Code Est Pt Level 3 (35986) Est Pt Prev Care >65y(27847) Diagnoses Physical exam Z00.00 Chronic low back pain without sciatica, unspecified back pain laterality M54.50; G89.29 Chronicity: chronic Back pain laterality: unspecified Sciatica presence: without sciatica Chronic GERD K21.9 Additional Codes PHQ-9 - 71329 - PHQ-9 Billing: Yes ([id number]) BLANCA-7 Assessment Billing - BLANCA-7 Assessment Tool: BLANCA-7 Assessment 12931 ([id number]) Time Spent (min) 35 Assessment & Plan Assessment & Plan (1) Physical exam: Code(s): Z00.00 - Encounter for general adult medical examination without abnormal findings Category: Medical (2) Low back pain: Code(s): M54.50 - Low back pain, unspecified Category: Medical Qualifiers: Chronicity: chronic Back pain laterality: unspecified Sciatica presence: without sciatica Qualified Code(s): M54.50 - Low back pain, unspecified; G89.29 - Other chronic pain (3) Chronic GERD: Code(s): K21.9 - Gastro-esophageal reflux disease without esophagitis Category: Medical Plan - Administer pneumococcal vaccine today during the visit. - Discuss the relief achieved with naproxen in managing abdominal discomfort, potentially reflecting back pain management. - Continue monitoring abdominal discomfort, and referral to [facility] is noted for evaluation of symptoms. - Maintain up-to-date tetanus vaccine status. - Ensure regular screening including colonoscopy is followed as per schedule. Patient was informed and verbally consented to the use of an ambient scribe for clinic note documentation during this visit. I discussed with the patient the necessity of receiving the pneumococcal vaccine, which is recommended for individuals aged 65 and above. We reviewed his previous vaccination history, confirming that his tetanus immunization is current as of 2019. For his abdominal and back pain, I highlighted that his use of naproxen has been effective in alleviating some symptoms, and this could be indicative of managing an underlying issue with pain referral. I have planned for a referral to Gastroenterology for further investigation of his ongoing abdominal discomfort. We discussed these approaches to ensure comprehensive care and address any potential underlying conditions proactively. Orders: Orders Lipid Panel Today E78.5 - Hyperlipidemia, unspecified Vitamin D 25-OH Total Today E55.9 - Vitamin D deficiency, unspecified Influenza 6909-1950 Immunization Today Z23 - Encounter for immunization Comprehensive Met. Panel Today Z00.00 - Encounter for general adult medical examination without abnormal findings PSA,Total (Free>4and<10) Today R35.1 - Nocturia Pneumococcal 20 Immunization Today Z23 - Encounter for immunization Medications: Refilled simvastatin 20 mg PO BEDTIME 90 days 90 tabs 2RF Patient Instructions: - Receive the pneumococcal vaccine today. - Follow up with [facility] as discussed for abdominal discomfort evaluation. - Continue usage of naproxen as needed for abdominal and back pain, noting any changes or escalation in symptoms. - Ensure adherence to scheduled screening tests such as colonoscopy as it comes due.
== END 2024-09-06 11:35 | disposition home or self-care (01) ==
PROVIDERS: PCP Internal Medicine; Visit Provider Internal Medicine
DX: Z00.00 Encounter for general adult medical examination without abnormal findings (principal); M54.50 Low back pain, unspecified; G89.29 Other chronic pain; K21.9 Gastro-esophageal reflux disease without esophagitis; Z23 Encounter for immunization

== ENCOUNTER → 2024-09-06 10:38 | Outpatient (BNVA) | payer OTHER, SELFPAY | PROVIDERS: PCP Internal Medicine; Visit Provider Internal Medicine | DX: Z00.00 Encounter for general adult medical examination without abnormal findings (principal); Z23 Encounter for immunization; M54.50 Low back pain, unspecified; G89.29 Other chronic pain; K21.9 Gastro-esophageal reflux disease without esophagitis | CPT/HCPCS: 90471; 90677; 96127; 99212; 99397 ==

== ENCOUNTER → 2024-09-22 09:57 | Outpatient (BNVA) | payer OTHER, SELFPAY | PROVIDERS: PCP Internal Medicine; Visit Provider Internal Medicine | DX: J40 Bronchitis, not specified as acute or chronic (principal); I10 Essential (primary) hypertension; E78.5 Hyperlipidemia, unspecified; K59.09 Other constipation; K21.9 Gastro-esophageal reflux disease without esophagitis | CPT/HCPCS: 99212 ==

== ENCOUNTER 2024-10-01 09:55 | Outpatient (REF) | payer OTHER, SELFPAY ==
--- NOTE | ~2024-10-01 | XR_ITS ---
EXAMINATION: XR LUMBOSACRAL SPINE CLINICAL INFORMATION: M54.50 - Low back pain, unspecified COMPARISON: 06/10/2019. TECHNIQUE: 6 views of the lumbar spine, inclusive of bilateral oblique views, were obtained. FINDINGS: No significant scoliosis. Normal lordosis. No fracture, compression deformity, malalignment, or suspicious bone lesion. Normal facet alignment with no pars defect. Degenerative facet changes present at L3-S1. Severe disc degeneration L5-S1. Moderate disc degeneration L4-5. Otherwise only minimal disc degeneration. Mild arthritis in both SI joints. No soft tissue abnormalities aside from mild vascular calcification. XR/XR lumbar spine 4V min IMPRESSION: 1. No acute findings of the lumbar spine. 2. Mild to moderate spondylosis most significant at L5-S1. Electronically signed by: Ariel Peña MD 10/01/2024 02:47 PM [facility]
== END 2024-10-01 09:56 | disposition home or self-care (01) ==
LOC: HO.XRAY 09:55
PROVIDERS: PCP Internal Medicine; Visit Provider Registered Nurse Emergency
DX: M54.50 Low back pain, unspecified (principal); G89.29 Other chronic pain; M54.9 Dorsalgia, unspecified; M47.816 Spondylosis without myelopathy or radiculopathy, lumbar region; M79.18 Myalgia, other site
CPT/HCPCS: 72110; 99202

== ENCOUNTER 2024-10-01 09:55 | Outpatient (AMB) | payer OTHER, SELFPAY ==
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
[2024-10-01 10:16] VITALS: BP 151/66; PULSE 100; O2SAT 97; BMI 28.7
--- OUTSIDE RECORDS SUMMARY | 2024-10-01 10:32 | XMS_ITS | Data Portability ---
Author Organization [employer], [employer] in [employer] Address [address] [place] [id number] Care Team Providers Care Boardmarker Name Role Phone [facility] Referring Provider Assessment No assessment recorded. Plan of Treatment Reminders Order Date Submit Date Provider Last Modified By Organization Details Last Modified Time Details Appointments None record ed. Lab None record ed. Referral None record ed. Procedures None record ed. Surgeries None record ed. Imaging None record ed. Medication Orders None record ed. Patient TargetsNo targets recorded. Patient InstructionsNo instructions recorded. Reason for Referral None Reported. Medical Equipment None Reported. Medications Name Sig Start Date Stop Date Status Note LastModified by Organization Details LastModified Time cetirizine 10 mg tablet TAKE 1 TABLET BY MOUTH EVERY DAY NEEDED FOR ALLERGY SYMPTOMS active Not Available Not Available No t Available lisinopril 20 mg tablet TAKE 1 TABLET BY MOUTH DAILY active Not Available Not Available No t Available triamcinolone acetonide 0.1 % topical cream APPLY TOPICALLY TO THE AFFECTED AREA DAILY FOR 2 WEEKS active Not Available Not Available No t Available simvastatin 20 mg tablet TAKE 1 TABLET BY MOUTH AT BEDTIME active Not Available Not Available No t Available esomeprazole magnesium 40 mg capsule,delay ed release TAKE 1 CAPSULE BY MOUTH DAILY active Not Available Not Available No t Available lisinopril 10 mg tablet TAKE 1 TABLET BY MOUTH DAILY active Not Available Not Available No t Available triamcinolone acetonide 55 mcg nasal spray aerosol USE 1 SPRAY IN EACH NOSTRIL DAILY active Not Available Not Available No t Available metoprolol succinate ER 25 mg tablet,extend ed release 24 hr TAKE 1/2 TABLET BY MOUTH TWICE DAILY active Not Available Not Available No t Available polyethylene glycol 3350 17 gram/dose oral powder active Not Available Not Available Not Available cholecalcifer ol (vitamin D3) 25 mcg (1,000 unit) capsule TAKE 1 CAPSULE BY MOUTH DAILY active Not Available Not Available No t Available Vitals Date Recorded Body weight Body temperature Heart rate Body height Oxygen saturation Oxygen saturation in Arterial blood by Pulse oximetry Respiratory rate Systolic blood pressure Diastolic blood pressure Provider Name and Address Organization Details Last Updated DateTime 3 45244.4 g 98.1 [degF] 72 /min 172.72 cm 98 % 98 % 14 /min 162 mm[Hg] 77 mm[Hg] Not Available [facility] - production 3 12:12:32 Social History None recorded. Functional Status None recorded. Mental Status None recorded. Family History Nothing Reported. Medical History No medical history recorded. Past Encounters Encounter ID Performer Location Encounter Start Date Encounter Closed Date Diagnosis/Indication Diagnosis SNOMED-CT Code Diagnosis ICD10 Code Diagnosis Note [id number] Timi Camargo MD [facility] [address] [place] [address] 07/01/2023 12:12:15 07/01/2023 19:30:[address] segment elevation myocardial infarction [id number] I21.3 This 62-year-ol d male called [facility] gina hernandez of right neck and arm pain with pleuritic chest pain for several days. His EKG revealed a STEMI and he was sent the ER by ground ambulance. The patient agreed with this plan. Health Concerns Section Related Observation LastModified by Organization Detai ls LastModified Time None Recorded Concern Status LastModified by Organization Details LastModified Time None Recorded Advance Directives Directive None Recorded Payers Encounter Date Sequence Insurance Name Policy Number Policy Coreas Covered Member ID Coreas Member ID Guarantor Name 07/01/2023 1 [facility] - DOS ON OR AFTER 2022 - DUAL ELIGIBLE - GROUP HOME OPTIONS AND ONE CARE (MEDICARE REPLACEMENT/ADV ANTAGE - HMO) Yonatan Mendoza [id number] Yonatan Mendoza Notes Date Note Type Note Provider Name and Address Organization Details Recorded Time 07/01/2023 text/html HPI: Member called [facility], states last week, he experienced palpitations. 3 days ago member developed rt side neck pain that radiates down to rt shoulder, slight headache, mild sob. Member was able to speak in full sentences without pauses or breaks. Denies chest pain, palpitation, dizziness or weakness of rt arm. States B/p 160/66 prior to taking b/p medications. Member has not taken any otc's for pain. Member is requesting home visit for evaluation. Encouraged member to take tylenol, apply warm compress to affected area .................. .................. .................. .................. .................. .................. .................. ............... [facility] Nursing Assessment: Comments: [facility] RN did not require any additional information to process this visit. Timi Camargo MD [address] [place] [address],[address] [place] [address], [place], [phone], [employer] 07/01/2023 12:17:12
== END 2024-10-01 10:40 | disposition home or self-care (01) ==
PROVIDERS: PCP Internal Medicine; Visit Provider Registered Nurse Emergency
DX: M54.50 Low back pain, unspecified (principal); G89.29 Other chronic pain; M54.9 Dorsalgia, unspecified; M47.816 Spondylosis without myelopathy or radiculopathy, lumbar region; M79.18 Myalgia, other site
CPT/HCPCS: 99204; G2211

== ENCOUNTER → 2024-10-01 10:50 | Outpatient (BNV) | payer OTHER, SELFPAY | PROVIDERS: PCP Internal Medicine; Visit Provider Radiology Diagnostic Radiology | DX: M54.50 Low back pain, unspecified (principal) | CPT/HCPCS: 72110 ==

== ENCOUNTER 2024-12-15 11:29 | Outpatient (AMB) | payer OTHER, SELFPAY ==
[2024-12-15 11:48] VITALS: BP 136/62; PULSE 78; O2SAT 98; BMI 28.5
--- NOTE | 2024-12-15 11:48 | MHC.OFFVIS ---
Vital Signs 12/15/24 11:48 Height 5 ft 9 in Weight 193 lb BMI 28.5 BP 136/62 Blood Pressure Location Rt brachial Position Sitting Pulse 78 Pulse Source Pulse Oximeter Pulse Oximetry (%) 98 Oxygen Delivery Method Room Air Intake Visit Reasons: GERD mgmt. Est pt. Intake Note: ESTABLISHED PATIENT for re-est care. CY w/ Enriqueta 2022. Mgmt of GERD + CIC. Chief Complaint; C/O bloating, RUQ burning pain, constipation with BRB per rectum (small amounts). Pt reports that he feels fine today but has been having intermittent sx for the past few months. No additional sx at this time. Executive Officer Special Warfare Team Required: Yes Executive Officer Special Warfare Team Services: Executive Officer Special Warfare Team Present Executive Officer Special Warfare Team Name: [id number] Slava + [facility] [place] Interpreted: clinical only Accompanied by: Self / Same As Patient Allergies No Known Allergies [No Known Allergies*] Allergy (Verified 12/15/24 11:48) HPI HPI GERD mgmt. Est pt.: Details: LAST VISIT: Chronic constipation Patient reports to be constipated, I will give him script for MiraLax. Patient will call the office if this not going to be effective. Status post colonoscopy Hyperplastic polyps found on colonoscopy. Patient denies any ill effects from the prep, anesthesia or procedure itself. Colorectal screening in 10 years sooner if clinically necessary. GERD (gastroesophageal reflux disease) Patient reports occasional postprandial acid reflux without dyspepsia, dysphagia or odynophagia. This could be related the patient is not emptying his bowels daily. Also could be related to the type of food that he eats. I will start him on Nexium. Patient was also encouraged to avoid dietary triggers and late night snacking. Patient was encouraged to also lose weight. Staying upright for minimal 3 hours after meals encouraged as well. I will see patient in 3 months, sooner on as needed basis. Patient is agreeable to this plan and verbalizes understanding of instructions. He was given the opportunity to ask questions all questions answered. ? Thank you for allowing me to participate in his care Plan Medications New polyethylene glycol 3350 (Miralax) 17 grams PO DAILY 510 grams 2RF esomeprazole magnesium (Nexium) 40 mg PO DAILY 90 caps 5RF K21.9 TODAY'S VISIT: Patient is here today for request visit. Patient was last seen in 2022 after his colonoscopy. Patient reports that he is starting to be constipated. Denies melena, hematochezia, unintentional weight loss or ribbon like stools. Patient reports acid reflux. PCP switched patient to pantoprazole it feels like it is not working. Patient used to take Nexium and the was working better. We will switch him back to Nexium. Patient reports occasional epigastric pain postprandially. Denies dyspepsia, dysphagia or odynophagia. Patient reports occasional abdominal bloating. Feeling gassy depending on what he eats. Patient took MiraLax in the past and reported helpful PFSH Medical History Chronic constipation Screen for colon cancer Dyspepsia Dyslipidemia Essential hypertension Surgical History Hx laparoscopic cholecystectomy Hx of colonoscopy Right leg injury Family History Mother Heart problem Father No problems noted. Social History Housing: House Alcohol intake: never Patient Tobacco Use Status: Never used Tobacco e-Cigarette/Vaping Use: Never Used Second Hand Smoke Exposure: No service: No Current occupational status: disabled Current occupation: rt hand Cognitive needs: No Hearing needs: No Vision needs: Yes Review of Systems Const Denies weight gain and Denies weight loss ENT Reports no additional complaints, Denies dysphagia and Denies odynophagia Card Reports no additional complaints Resp Reports no additional complaints GI Reports abdominal pain (Epigastric), Denies belching, Denies melena, Reports bloating, Denies change in bowel habits, Reports constipation, Denies dysphagia, Denies excessive flatus, Denies dyspepsia, Reports heartburn, Denies diarrhea, Denies loose stools, Denies nausea, Denies odynophagia and Denies vomiting Reports no additional complaints Musc Reports no additional complaints Neuro Reports no additional complaints Psych Reports no additional complaints Endo Reports no additional complaints Physical Exam Vital Signs: Last Vital Signs Pulse 78 12/15/24 11:48 BP 136/62 12/15/24 11:48 Pulse Ox 98 12/15/24 11:48 Oxygen Delivery Method Room Air 12/15/24 11:48 BMI result Body Mass Index 28.5 Const General: healthy appearing, no acute distress and well developed Nutritional Appearance: well nourished Orientation/consciousness: patient oriented x3 Resp Effort & Inspection: normal respiratory effort, able to speak in complete sentences, no tracheal deviation and symmetric chest movement Auscultation: clear to auscultation bilaterally Cardio Rate: regular rate GI Inspection: Yes normal to inspection and No distended Palpation (GI): Soft to palpation, not firm, nontender and No hepatosplenomegaly present Auscultation: normal bowel sounds General: Yes no CVA tenderness Back/Spine/Pelvis Back: no CVA tenderness Skin General skin exam: elasticity normal, turgor normal and dry skin Neuro General: patient oriented x3 Psych Appearance: grossly normal Mental Status: mental status grossly normal Assessment & Plan Assessment & Plan (1) Chronic constipation: Code(s): K59.09 - Other constipation Category: Medical (2) Acid reflux: Code(s): K21.9 - Gastro-esophageal reflux disease without esophagitis Qualifiers: Esophagitis presence: esophagitis presence not specified Qualified Code(s): K21.9 - Gastro-esophageal reflux disease without esophagitis (3) Postprandial epigastric pain: Code(s): R10.13 - Epigastric pain (4) Postprandial abdominal bloating: Code(s): R14.0 - Abdominal distension (gaseous) Plan Will start patient on Nexium. Avoid dietary triggers in late night snacking. Staying upright for minimal 3 hours after meals discussed with patient. Patient will start taking MiraLax daily. Increase fluid intake and activity to promote better bowel motility. Patient reports history of endoscopy long time ago in [place]. Not sure of the results. Long history of PPI use it patient should probably go for endoscopy. I will see him in 3 months to discuss going for procedure. Patient will call our office if he will continue to have symptoms are experience any additional GI concerning symptoms. He is agreeable to this plan and verbalizes understanding of instructions. He was given the opportunity to ask questions and all questions answered. Thank you for allowing me to participate in his care Medications: New esomeprazole magnesium (Nexium) 40 mg PO DAILY 30 caps 3RF K21.9 - Gastro-esophageal reflux disease without esophagitis polyethylene glycol 3350 (Miralax) 17 grams PO DAILY 510 grams 2RF Discontinued pantoprazole Discontinued Reason: Doctor's Order 40 mg PO DAILY 90 days 90 tabs 1RF Coding Level of Care Code Est Pt Level 4 (24157) Complex EM visit Add On G2211 Diagnoses Chronic constipation K59.09 Gastroesophageal reflux disease, unspecified whether esophagitis present K21.9 Esophagitis presence: esophagitis presence not specified Postprandial epigastric pain R10.13 Postprandial abdominal bloating R14.0 Time Spent (min) 35 Comment 25 minutes spent with patient and additional 10 minutes spent reviewing his records
--- OUTSIDE RECORDS SUMMARY | 2024-12-15 13:09 | XMS_ITS | Data Portability ---
Author Organization [employer] Address [address] [place] [phone] Care Team Providers Care Radio Station Operator Name Role Phone [facility] Referring Provider Assessment No assessment [...] Address Organization Details Last Updated DateTime 3 75961.4 g 98.1 [degF] 72 /min 172.72 cm [...] SNOMED-CT Code Diagnosis ICD10 Code Diagnosis Note [id number] Timi Camargo MD Main - [facility] [address] [place] [address] 07/01/2023 12:12:15 07/01/2023 19:30:[address] segment elevation myocardial infarction [id number] I21.3 This 62-year-ol d male called [facility] gina hernandez of right neck and arm [...] Coreas Member ID Guarantor Name 07/01/2023 1 [facility] - DOS ON OR AFTER 2022 - DUAL ELIGIBLE - PENITENTIARY OPTIONS AND ONE CARE (MEDICARE REPLACEMENT/ADV ANTAGE - HMO) Yonatan Mendoza [id number] Yonatan Mendoza Notes Date Note Type Note [...] to process this visit. Timi Camargo MD [address] [place] [address],[address] [place] [address], [place], [phone], [employer] 07/01/2023 12:17:12
== END 2024-12-15 12:33 | disposition home or self-care (01) ==
LOC: HO.HGI 11:29
PROVIDERS: PCP Internal Medicine; Visit Provider Nurse Practitioner Family
DX: K59.09 Other constipation (principal); K21.9 Gastro-esophageal reflux disease without esophagitis; R10.13 Epigastric pain; R14.0 Abdominal distension (gaseous)
CPT/HCPCS: 99214; G2211

== ENCOUNTER → 2024-12-15 11:29 | Outpatient (BNVA) | payer OTHER, SELFPAY | PROVIDERS: PCP Internal Medicine; Visit Provider Nurse Practitioner Family | DX: K21.9 Gastro-esophageal reflux disease without esophagitis (principal); K59.09 Other constipation; R10.13 Epigastric pain; R14.0 Abdominal distension (gaseous) | CPT/HCPCS: 99212 ==

== ENCOUNTER 2025-03-01 08:40 | Outpatient (REF) | payer OTHER, SELFPAY ==
--- OUTSIDE RECORDS SUMMARY | 2025-03-01 08:47 | XMS_ITS | Patient Health Record ---
Author Organization [facility] Address [address] [place] [phone] Care Team Providers Care Telephone Coin Box Collector Name Role Phone Luis Lopez Jr Reason For Referral No Information Plan Of Treatment No Information
--- OUTSIDE RECORDS SUMMARY | 2025-03-01 08:47 | XMS_ITS | Clinical Summary ---
Author Organization [employer] Address [address] [place] [address] Care Team Providers Care Mobile Home Installer Name Role Phone Unavailable Primary Care Provider Unavailabl e Encounters Date Type Department Care Team Description 02/22/2025 Telephone [facility] MEDICINE [address] [place] [address] [phone] Javier Waterman MD 02/22/[address] [phone] Javier Waterman MD 01/31/2025 Telephone [facility] [address] [place] [address] [phone] Javier Waterman MD from Last 3 Months Social History Tobacco Use Types Packs/Day Years Used Date Smoking Tobacco: Never Assessed Sex and Gender Information Value Date Recorded Sex Assigned at Male 06/17/2022 10:18 AM EDT Legal Sex Male 10:18 AM EDT Gender Identity Male 06/17/2022 10:18 AM EDT Sexual Orientation Straight 06/17/2022 10 :18 AM EDT Last Filed Vital Signs Vital Sign Reading Time Taken Comments Blood Pressure 132/77 02/20/2021 12:07 AM EDT Pulse 71 02/20/2021 12:07 AM EDT Temperature - - Respiratory Rate - - Oxygen Saturation - - Inhaled Oxygen Concentration - - Weight 88.5 kg (195 lb) 02/20/2021 12:07 AM EDT Height 177.8 cm (5' 10 ) 02/20/2021 12:07 AM EDT Body Mass Index 27.98 02/20/2021 12:07 AM EDT Plan of Treatment Upcoming Encounters Date Type Department Care Team (Late st Contact Info) Description 05/26/2025 10:45 AM EDT Office Visit [facility] [address] [place] [address] Name, MD Kayden [address] [place] [address] Health Maintenance Due Date Last Done Comments CT Colonography 1958 Colonoscopy 1958 Colorectal Cancer Screening 1958 Depression Screening 1958 FIT DNA/Cologuard 1958 FIT 1958 FOBT 1958 SDOH Screening 1958 Sigmoidoscopy 1958 Alcohol/Substance Use Screening 1970 Tobacco Screening 1970 Hepatitis C Screening 1976 Hepatitis A Vaccines (1 of 2 - Risk 2-dose series) 1977 Zoster Vaccines (1 of 2) 2008 Hepatitis B Vaccines (1 of 3 - Risk 3-dose series) 2018 RSV Patients and Patients Aged 60 years or older (1 - Risk 60-74 years 1-dose series) 2018 COVID-19 Vaccine (4 - 2023-2 5 season) 2024 08/13/2021, 12/18/2020, 2020 Influenza Vaccine (#1) 2025 07/03/2007 Lipid Panel 04/28/2025 04/28/2020 DTaP/Tdap/Td Vaccines (3 - T d or Tdap) 10/21/2028 10/21/2018, 12/23/2008 Pneumococcal Vaccine: 50+ Years Completed 09/06/2024 HIB Vaccines Aged Out No longer eligi ble based on patient's age to complete this topic HPV Vaccines Aged Out No longer eligi ble based on patient's age to complete this topic IPV Vaccines Aged Out No longer eligi ble based on patient's age to complete this topic Meningococcal B Vaccine Aged Out No l onger eligible based on patient's age to complete this topic Meningococcal Vaccine Aged Out No brown dona eligible based on patient's age to complete this topic RSV under 20 months Aged Out No longe r eligible based on patient's age to complete this topic Rotavirus Vaccines Aged Out No longer eligible based on patient's age to complete this topic Procedures Procedure Name Priority Date/Time Associated Diagnosis Comments LIPID PANEL, STANDARD Routine 04/28/2020 10:06 AM EDT from Last 3 Months or Most Recently Relevant to Health Maintenance Results * (ABNORMAL) LIPID PANEL, STANDARD (04/28/2020 10:06 AM EDT) Cholesterol, Total 177 <200 mg/dL [facility] Triglycerides 98 <150 mg/dL [facility] LDL Cholesterol 109(H) mg/dL (calc) [facility] Comment: Reference range: <100 Desirable range <100 mg/dL for primary prevention; <70 mg/dL for patients with CHD or diabetic patients with > or = 2 CHD risk factors. LDL-C is now calculated using the Luis F-Ching calculation, which is a validated novel method providing better accuracy than the Friedewald equation in the estimation of LDL-C. Luis F SS et al. SKYLA. 2013;310(19): 3936-6051 (http://education.eCoast/faq/QPB019) HDL Cholesterol 49 > OR = 40 mg/dL [facility] Chol/HDLC Ratio 3.6 <5.0 (calc) [facility] Non-HDL Cholesterol 128 <130 mg/dL (calc) [facility] Comment: For patients with diabetes plus 1 major ASCVD risk factor, treating to a non-HDL-C goal of <100 mg/dL (LDL-C of <70 mg/dL) is considered a therapeutic option. 04/28/2020 10:0 6 AM EDT us Kayden Name LAB BLOOD ORDERABLES Final Resul t [facility] [address] from Last 3 Months or Most Recently Relevant to Health Maintenance Insurance [facility] ONE CARE < 65
--- OUTSIDE RECORDS SUMMARY | 2025-03-01 08:47 | XMS_ITS | Data Portability ---
Author Organization [employer] [facility] Address [address] [place] [phone] Care Team Providers Care Automated Weaver Name Role Phone [facility] Referring Provider [phone] Assessment No assessment recorded. Plan of Treatment [...] blood by Pulse oximetry Respiratory rate Systolic And Diastolic Provider Name and Address Organization Details Last Updated DateTime 3 00736.4 g 98.1 [degF] 72 /min 172.72 cm 98 % 98 % 14 /min 162/77 mm[Hg] Not Available [employer] - production 3 12:12:32 Social History None recorded. Functional Status None recorded. Mental Status None recorded. Family History Nothing Reported. Medical History No medical history recorded. Past Encounters Encounter ID Performer Location Encounter Start Date Encounter Closed Date Diagnosis/Indication Diagnosis SNOMED-CT Code Diagnosis ICD10 Code Diagnosis Note [id number] Timi Camargo MD Main - [facility] [address] [place] [address] 07/01/2023 12:12:15 07/01/2023 19:30:[address] segment elevation myocardial infarction [id number] I21.3 This 62-year-ol d male called [facility] gina of right neck and arm pain with pleuritic chest pain for several days. His EKG revealed a STEMI and he was sent the ER by ground ambulance. The patient agreed with this plan. Health Concerns Section Related Observation LastModified by Organization Detai ls LastModified Time None Recorded Concern Status LastModified by Organization Details LastModified Time None Recorded Advance Directives Directive None Recorded Payers Insurance Date Sequence Insurance Name Policy Number Policy Coreas Covered Member ID Coreas Member ID Guarantor Name 07/01/2023 1 [facility] - DOS ON OR AFTER 2022 - DUAL ELIGIBLE - JAIL OPTIONS AND ONE CARE (MEDICARE REPLACEMENT/ADV ANTAGE - HMO) Yonatan Mendoza [id number] Yonatan Mendoza Notes Date Note Type Note Provider Name and Address Organization Details Recorded Time 07/01/2023 text/html HPI: Member called [facility], [facility] last week, he experienced palpitations. 3 days [...] to process this visit. Timi Camargo MD [address] [place] [address], [place], [phone], [employer] 07/01/2023 12:17:12
[2025-03-01 08:52] LABS: MANUAL DIFF FLAG NO
[2025-03-01 09:14] LABS: Hematocrit 37.8 % (42.0-52.0); Hemoglobin 12.5 g/dl (14.0-18.0); Imm Gran Abs Auto 0.01 X10*3/uL (0.00-0.03); Imm Gran Pct Auto 0.2 % (0.0-0.4); Lymphocytes Absolute Auto 1.3 X10*3/uL (1.2-4.9); Mean Corpuscular HGB Conc 33.1 g/dl (31.0-36.0); Mean Corpuscular Hemoglobin 28.3 pg (27.0-33.0); Mean Corpuscular Volume 85.5 fL (80.0-98.0); NRBC Abs Auto 0.000 X10*3/uL (0.0-0.012); NRBC Pct Auto 0.0 /100WBC (0.0-0.2); Platelet Count 220 X10*3/uL (160-400); Red Blood Count 4.42 X10*6/uL (4.60-5.80); White Blood Count 5.9 X10*3/uL (4.8-10.8)
[2025-03-01 09:43] LABS: Alanine Aminotransferase 17 U/L (0-40); Albumin Level 4.6 g/dL (3.5-5.0); Alkaline Phosphatase 66 U/L (39-117); Anion Gap 10 (12-20); Aspartate Amino Transferase 24 U/L (5-37); Blood Urea Nitrogen 16 mg/dL (9-16); Calcium 8.9 mg/dL (8.4-10.2); Carbon Dioxide 27 mmol/L (22-29); Chloride 108 mmol/L (96-108); Cholesterol 186 mg/dL (<200); Estimated Glomerular Filt Rate > 60; HDL Cholesterol 45 mg/dL (>40); Iron 64 mcg/dL (45-160); Percent Iron Saturation 25 % (15-50); Potassium 4.2 mmol/L (3.3-5.1); Sodium 141 mmol/L (135-145); Total Iron Binding Capacity 254 mcg/dL (228-428); Total Protein 7.4 g/dL (6.5-8.0); Triglycerides 99 mg/dL (<150); Unsaturated Iron Binding 190 ug/dL
[2025-03-01 09:56] LABS: PSA,Total (Free>4and<10) 1.82 ng/mL (0.00-4.00)
== END 2025-03-01 08:41 | disposition home or self-care (01) ==
LOC: HO.LAB 08:40
PROVIDERS: PCP Internal Medicine; Visit Provider Internal Medicine
DX: Z00.00 Encounter for general adult medical examination without abnormal findings (principal); R35.1 Nocturia; D64.9 Anemia, unspecified; K59.09 Other constipation; E55.9 Vitamin D deficiency, unspecified
CPT/HCPCS: 36415; 80053; 80061; 82306; 83540; 84153; 85025

== ENCOUNTER 2025-03-07 09:30 | Outpatient (AMB) | payer OTHER, SELFPAY ==
[2025-03-07 09:49] VITALS: BP 122/72; PULSE 72; O2SAT 97; BMI 28.3
--- NOTE | 2025-03-07 09:49 | MHC.PC.OV ---
Vital Signs 03/07/25 09:49 Height 5 ft 9 in Weight 191 lb 8 oz BMI 28.3 BP 122/72 Blood Pressure Location Lt brachial Position Sitting Pulse 72 Pulse Source Pulse Oximeter Pulse Oximetry (%) 97 Oxygen Delivery Method Room Air Intake Visit Reasons: bp Nutrition Program Instructor Required: No Accompanied by: Self / Same As Patient Allergies No Known Allergies (No Known Allergies*) Allergy (Verified 03/07/25 10:05) Medication List - Last Reconciled 03/07/25 by Fina Thorpe MD acetaminophen (Tylenol Extra Strength) 500 mg PO Q6H PRN albuterol sulfate 90 mcg/actuation 2 puffs inhalation Q6H PRN aspirin 81 mg PO DAILY 90 days baclofen 5 mg PO BID cetirizine 10 mg PO DAILY PRN 30 days cholecalciferol (vitamin D3) 25 mcg PO DAILY 90 days esomeprazole magnesium (Nexium) 40 mg PO DAILY hydrocodone-homatropine 5-1.5 mg/5 mL (5 mL) (Hycodan) 5 mL PO Q4-6H PRN ibuprofen 800 mg PO Q8H PRN 30 days lidocaine 5% 1 patch topical DAILY lisinopril 20 mg PO DAILY methocarbamol 500 mg PO TID metoprolol succinate ER 12.5 mg (1/2 x 25 mg) PO BID 90 days naproxen 500 mg PO BID PRN 30 days polyethylene glycol 3350 (Miralax) 17 grams PO DAILY simvastatin 20 mg PO BEDTIME 90 days triamcinolone acetonide (Nasacort) 1 spray intranasal DAILY 30 days Tobacco use date assessed: 03/07/25 Fall risk assessment: No Falls in past year Last assessed Fall Risk: 03/07/25 Dental Screening Dental Screen Date: 03/07/25 Did you have a dental visit in the last 12 months?: Yes Did you have a dental problem in the last 6 months where you did not have access to dental care?: No Was dental information given to patient?: Patient has dentist HPI HPI Comments History of Present Illness Details The patient is a 64-year-old male presenting for follow-up on multiple chronic conditions including gastroesophageal reflux disease and degenerative disc disease. The patient reports ongoing issues with gastroesophageal reflux disease, which has been persistent and causes discomfort. He has been prescribed Nexium by a nutritionists, but the medication was not dispensed by the pharmacy due to insurance issues. Alternative proton pump inhibitors are being considered to manage his symptoms. The patient also has a history of degenerative disc disease and arthritis, which were identified during a visit to pain management. He reports back pain and was informed of disc degeneration and arthritis, but no fractures were noted. Physical therapy has been recommended to alleviate symptoms, although the patient is hesitant about its effectiveness. The patient experiences symptoms of allergic rhinitis, including phlegm and nasal discomfort. Levocetirizine has been recommended to manage these symptoms, with a warning about potential dry mouth. He also has hypertension well controlled with lisinopril and reports no side effects. He is also on statins for pure hypercholesterolemia reports no side effects. [facility] Medical History (Updated 03/07/25 @ 10:12 by Fina Thorpe MD) Chronic constipation Screen for colon cancer Dyspepsia Dyslipidemia Essential hypertension Surgical History Hx laparoscopic cholecystectomy Hx of colonoscopy Right leg injury Family History Mother Heart problem Father No problems noted. Social History Housing: House Alcohol intake: never Patient Tobacco Use Status: Never used Tobacco e-Cigarette/Vaping Use: Never Used Second Hand Smoke Exposure: No service: No Current occupational status: disabled Current occupation: rt hand Cognitive needs: No Hearing needs: No Vision needs: Yes Questionnaire PHQ-9 Over the last 2 weeks, how often have you been bothered by any of the following problems? 1. Little interest or pleasure in doing things: not at all 2. Feeling down, depressed, or hopeless: not at all 3. Trouble falling or staying asleep, or sleeping too much: not at all 4. Feeling tired or having little energy: not at all 5. Poor appetite or overeating: not at all 6. Feeling bad about yourself - or that you are a failure or have let yourself or your family down: not at all 7. Trouble concentrating on things, such as reading the newspaper or watching television: not at all 8. Moving or speaking so slowly that other people could have noticed. Or the opposite - being so fidgety or restless that you have been moving around a lot more than usual: not at all 9. Thoughts that you would be better off or of hurting yourself in some way: not at all Total score: 0 Depression Screening Interpretation: Negative Depression Screening Done: Yes 36500 - PHQ-9 Billing: Yes Source: Developed by Drs. Austin Smith, Rosa Maria Ozuna, Clem Coffman and colleagues, with an educational giancarlo from [employer]. Thrive Questionnaire Date Thrive assessed: 03/07/25 I am a: Patient What is your living situation today?: I have a steady place to live Within the past 12 months, did the food you bought not last and you didn't have the money to get more?: Never true Within the past 12 months, did you worry whether your food would run out before you got money to buy more?: Never true Do you have trouble paying for medicines?: No Do you have trouble getting transportation to medical appointments?: No Do you have trouble paying your heating and electricity bill?: No Do you have trouble taking care of your child, family member or friend?: No Do you have trouble with day-to-day activities such as bathing, preparing meals, shopping, managing finances, etc.?: No Are you currently unemployed and looking for a job?: Yes Are you interested in more education?: No Please select the resources that you would like help with: None Currently or been in a relationship where the following occur: I choose not to answer THRIVE Score: 0 AUDIT C Alcohol Use Questionnaire (AUDIT-C) 1. How often do you have a drink containing alcohol?: Never 3. How often do you have six or more drinks on one occasion?: Never Total Score: 0 Score Reviewed/Action Taken: No BLANCA-7 AMB Questionnaire BLANCA-7 Date BLANCA - 7 assessed: 03/07/25 Feeling nervous, anxious, or on edge: 0 = Not at all Not being able to stop or control worryin = Not at all Worrying too much about different things: 0 = Not at all Trouble relaxin = Not at all Being so restless that it is hard to sit still: 0 = Not at all Becoming easily annoyed or irritable: 0 = Not at all Feeling afraid as if something awful might happen: 0 = Not at all Total BLANCA-7 score (0-4 normal; 5-9 mild; 10-14 moderate; 15-21 severe): 0 Source: Developed by Drs. Austin Smith, Rosa Maria Ozuna, Clem Coffman and colleagues, with an educational giancarlo from [employer]. BLANCA-7 Assessment Billing BLANCA-7 Assessment Tool: BLANCA-7 Assessment 15364 Review of Systems Const All systems reviewed & are unremarkable except as noted in HPI and below Card Denies chest pain at rest, Denies chest pain with activity, Denies edema, Denies irregular heart rhythm, Denies claudication, Denies dyspnea, Denies dyspnea on exertion, Denies orthopnea, Denies paroxysmal nocturnal dyspnea and Denies slow heart rate Resp Denies cough, Denies dyspnea and Denies dyspnea on exertion GI Denies abdominal pain, Denies change in bowel habits, Denies excessive flatus, Denies nausea and Denies vomiting Denies urinary hesitancy, Denies urinary incontinence and Denies urinary urgency Musc Denies abnormal gait, Denies atrophy, Denies deformity and Denies limited range of motion Skin/Breast Denies bleeding lesions, Denies changing lesions and Denies rash Neuro Denies abnormal gait and Denies lack of coordination Physical exam (Primary Care) Vital Signs: Last Vital Signs Pulse 72 03/07/25 09:49 BP 122/72 03/07/25 09:49 Pulse Ox 97 03/07/25 09:49 Oxygen Delivery Method Room Air 03/07/25 09:49 BMI result Body Mass Index 28.3 Tobacco/Smoking Status: Tobacco use Status Tobacco use date assessed 03/07/25 03/07/25 09:54 Patient Tobacco Use Status Never used Tobacco 03/07/25 09:54 e-Cigarette/Vaping Use Never Used 03/07/25 09:54 PHQ-9: PHQ-9 Score PHQ-9: Total score 0 03/07/25 10:09 Depression Screening Interpretation: Negative Thrive Assessment: Date of Thrive Assessment Date Thrive assessed 03/07/25 03/07/25 09:54 Currently or been in a relationship where the following occur: I choose not to answer Resp Effort & Inspection: normal respiratory effort Auscultation: clear to auscultation bilaterally Cardio Jugular venous distension: no JVD Rate: regular rate Rhythm: regular rhythm Heart sounds: S1 normal heart sound present and S2 normal heart sound present Extrem General: Yes full ROM Coding Level of Care Code Est Pt Level 4 (47938) Complex EM visit Add On G2211 Diagnoses Essential hypertension I10 Dyslipidemia E78.5 Allergic rhinitis J30.9 Chronic GERD K21.9 Lumbar degenerative disc disease M51.369 Additional Codes BLANCA-7 Assessment Billing - BLANCA-7 Assessment Tool: BLANCA-7 Assessment 62922 ([id number]) PHQ-9 - 75473 - PHQ-9 Billing: Yes ([id number]) Time Spent (min) 23 Assessment & Plan Assessment & Plan (1) Essential hypertension: Code(s): I10 - Essential (primary) hypertension Category: Medical (2) Dyslipidemia: Code(s): E78.5 - Hyperlipidemia, unspecified Category: Medical (3) Allergic rhinitis: Code(s): J30.9 - Allergic rhinitis, unspecified Category: Medical (4) Chronic GERD: Code(s): K21.9 - Gastro-esophageal reflux disease without esophagitis Category: Medical (5) Lumbar degenerative disc disease: Code(s): M51.369 - Other intervertebral disc degeneration, lumbar region without mention of lumbar back pain or lower extremity pain Category: Medical Plan For the management of gastroesophageal reflux disease, alternative proton pump inhibitors will be prescribed due to insurance issues with [employer]. The patient is advised to follow up with the nutritionists for further evaluation and management. Regarding degenerative disc disease and arthritis, physical therapy is recommended to alleviate symptoms, despite the patient's reservations. An MRI may be considered if there is no improvement after six weeks of therapy. For allergic rhinitis, levocetirizine is prescribed to manage symptoms, with a caution about potential side effects such as dry mouth. Patient was informed and verbally consented to the use of an ambient scribe for clinic note documentation during this visit. Orders: Orders Lipid Panel 6 Months E78.5 - Hyperlipidemia, unspecified Comprehensive [place]. Panel Fast 6 Months M51.369 - Other intervertebral disc degeneration, lumbar region without mention of lumbar back pain or lower extremity pain PT Evaluation and Treatment Today M51.369 - Other intervertebral disc degeneration, lumbar region without mention of lumbar back pain or lower extremity pain Medications: New pantoprazole 40 mg PO DAILY 90 tabs 1RF 90 days levocetirizine 5 mg PO DAILY PRN 90 tabs 0RF allergy symptoms 90 days Discontinued cetirizine Discontinued Reason: Patient Completed Course 10 mg PO DAILY 30 days PRN 30 tabs 0RF allergy symptoms naproxen Discontinued Reason: Patient Completed Course 500 mg PO BID 30 days PRN 60 tabs 2RF pain esomeprazole magnesium (Nexium) Discontinued Reason: Insurance Denied 40 mg PO DAILY 30 caps 3RF K21.9 - Gastro-esophageal reflux disease without esophagitis Patient Instructions: - Take the prescribed proton pump inhibitor as directed. - Follow up with your nutritionists for further evaluation. - Attend physical therapy sessions as recommended. - Monitor symptoms and report any changes to your healthcare provider. - Take levocetirizine for allergic rhinitis and be aware of potential dry mouth.
--- OUTSIDE RECORDS SUMMARY | 2025-03-07 10:03 | XMS_ITS | Patient Health Record ---
Author Organization [facility] Address [address] [place] [id number] Care Team Providers Care Button Tacker Name Role Phone Luis Lopez Jr Reason For Referral No Information Plan Of Treatment No Information
--- OUTSIDE RECORDS SUMMARY | 2025-03-07 10:03 | XMS_ITS | Clinical Summary ---
Author Organization [employer] Address [address] [place] [address] Care Team Providers Care Milanese Knitting Machine Operator Name Role Phone Unavailable Primary Care Provider Unavailabl e Encounters Date Type Department Care Team Description 02/22/2025 Telephone [facility] [address] [place] [address] [phone] Javier Waterman MD 02/22/[address] [phone] Javier Waterman MD 01/31/2025 Telephone [facility] [address] [place] [address] [phone] Javier Waterman MD from Last 3 Months [...] Description 05/26/2025 10:45 AM EDT Office Visit [facility] [address] [place] [address] Name, MD Kayden [address] [place] [address] Health Maintenance Due Date Last Done Comments [...] Luis F SS et al. SKYLA. 2013;310(19): 1754-2521 (http://education.Enliken/faq/JRT740) HDL Cholesterol 49 > OR = 40 [...] LAB BLOOD ORDERABLES Final Resul t [facility] [address] from Last 3 Months or Most Recently Relevant to Health Maintenance Insurance [facility] ONE CARE < 65
--- OUTSIDE RECORDS SUMMARY | 2025-03-07 10:03 | XMS_ITS | Data Portability ---
Author Organization [facility] Address [address] [place] [id number] Care Team Providers Care Instructional Technology Facilitator Name Role Phone [facility] Referring Provider Assessment [...] Address Organization Details Last Updated DateTime 3 96182.4 g 98.1 [degF] 72 /min 172.72 cm [...] SNOMED-CT Code Diagnosis ICD10 Code Diagnosis Note [id number] Timi Camargo MD Main - [facility] [address] [place] [phone] 07/01/2023 12:12:15 07/01/2023 19:30:[address] segment elevation myocardial infarction [id number] I21.3 This 62-year-ol d male called [facility] gina of right neck and arm pain [...] Coreas Member ID Guarantor Name 07/01/2023 1 [facility] - DOS ON OR AFTER 2022 - DUAL ELIGIBLE - LONG TERM OPTIONS AND ONE CARE (MEDICARE REPLACEMENT/ADV ANTAGE - HMO) Yonatan Mendoza [id number] Yonatan Mendoza Notes Date Note Type Note Provider Name and Address Organization Details Recorded Time 07/01/2023 text/html HPI: Member called [facility], [facility] last week, he experienced palpitations. 3 days [...] to process this visit. Timi Camargo MD [address] [place] [address], [place], [phone], [place] 07/01/2023 12:17:12
== END 2025-03-07 10:15 | disposition home or self-care (01) ==
LOC: HO.HMCH 09:31
PROVIDERS: PCP Internal Medicine; Visit Provider Internal Medicine
DX: I10 Essential (primary) hypertension (principal); E78.5 Hyperlipidemia, unspecified; J30.9 Allergic rhinitis, unspecified; K21.9 Gastro-esophageal reflux disease without esophagitis; M51.369 Other intervertebral disc degeneration, lumbar region without mention of lumbar back pain or lower extremity pain

== ENCOUNTER → 2025-03-07 09:30 | Outpatient (BNVA) | payer OTHER, SELFPAY | PROVIDERS: PCP Internal Medicine; Visit Provider Internal Medicine | DX: K21.9 Gastro-esophageal reflux disease without esophagitis (principal); J30.9 Allergic rhinitis, unspecified; I10 Essential (primary) hypertension; E78.5 Hyperlipidemia, unspecified; M51.369 Other intervertebral disc degeneration, lumbar region without mention of lumbar back pain or lower extremity pain | CPT/HCPCS: 96127; 99212 ==

== ENCOUNTER 2025-04-11 11:36 | Outpatient (AMB) | payer OTHER, SELFPAY ==
--- NOTE | 2025-04-11 11:43 | A.OFFVIS_ITS ---
Intake Visit Reasons: 4 mo f/u Intake Note: Patient follow up for acid reflux. Patient cc: abdominal bloating, acid reflux with abdominal burning sensation, hard stool with constipation and some bloody stool on and off, and also difficulty swallowing capsules/tablets. Consulting Psychiatrist Required: Yes Consulting Psychiatrist Name: [facility] Interpeter Accompanied by: Self / Same As Patient Allergies No Known Allergies (No Known Allergies*) Allergy (Verified 04/11/25 11:42) HPI HPI 4 mo f/u: Details: LAST VISIT: Chronic constipation Acid reflux Postprandial epigastric pain Postprandial abdominal bloating Plan Will start patient on Nexium. Avoid dietary triggers in late night snacking. Staying upright for minimal 3 hours after meals discussed with patient. Patient will start taking MiraLax daily. Increase fluid intake and activity to promote better bowel motility. Patient reports history of endoscopy long time ago in [place]. Not sure of the results. Long history of PPI use it patient should probably go for endoscopy. I will see him in 3 months to discuss going for procedure. Patient will call our office if he will continue to have symptoms are experience any additional GI concerning symptoms. He is agreeable to this plan and verbalizes understanding of instructions. He was given the opportunity to ask questions and all questions answered. ? Thank you for allowing me to participate in his care New esomeprazole magnesium (Nexium) 40 mg PO DAILY 30 caps 3RF K21.9 polyethylene glycol 3350 (Miralax) 17 grams PO DAILY 510 grams 2RF Discontinued pantoprazole Discontinued Reason: Doctor's Order 40 mg PO DAILY 90 days 90 tabs 1RF TODAY'S VISIT Patient is here today for follow-up. Patient was given script for Nexium, however insurance did not cover and PCP ordered pantoprazole. Patient reports medication is not very effective. He continues to have acid reflux. Patient reports trouble swallowing tablets/capsules only. It almost seems like medications gets stuck in his throat. Patient thinks that sometimes he feels like his throat is dry. Otherwise patient does not have trouble swallowing food or drinks. Patient reports that he is taking MiraLax and is moving his bowels daily without any issues. Patient denies melena, hematochezia, unintentional weight loss or ribbon like stools. Colonoscopy in October of 2022, hyperplastic polyp, 10 year recall [facility] Medical History Chronic constipation Screen for colon cancer Dyspepsia Dyslipidemia Essential hypertension Surgical History Hx laparoscopic cholecystectomy Hx of colonoscopy Right leg injury Family History Mother Heart problem Father No problems noted. Social History Housing: House Alcohol intake: never Patient Tobacco Use Status: Never used Tobacco e-Cigarette/Vaping Use: Never Used Second Hand Smoke Exposure: No service: No Current occupational status: disabled Current occupation: rt hand Cognitive needs: No Hearing needs: No Vision needs: Yes Review of Systems Const Denies weight gain and Denies weight loss ENT Reports no additional complaints, Reports dysphagia and Denies odynophagia Card Reports no additional complaints Resp Reports no additional complaints GI Reports abdominal pain (Epigastric), Denies belching, Denies melena, Reports bloating, Denies change in bowel habits, Reports constipation, Reports dysphagia, Denies excessive flatus, Denies dyspepsia, Reports heartburn, Denies diarrhea, Denies loose stools, Denies nausea, Denies odynophagia and Denies vomiting Reports no additional complaints Musc Reports no additional complaints Neuro Reports no additional complaints Psych Reports no additional complaints Endo Reports no additional complaints Physical Exam Const General: healthy appearing, no acute distress and well developed Nutritional Appearance: well nourished Orientation/consciousness: patient oriented x3 Resp Effort & Inspection: normal respiratory effort, able to speak in complete sentences, no tracheal deviation and symmetric chest movement Auscultation: clear to auscultation bilaterally Cardio Rate: regular rate GI Inspection: Yes normal to inspection and No distended Palpation (GI): Soft to palpation, not firm, nontender and No hepatosplenomegaly present Auscultation: normal bowel sounds General: Yes no CVA tenderness Back/Spine/Pelvis Back: no CVA tenderness Skin General skin exam: elasticity normal, turgor normal and dry skin Neuro General: patient oriented x3 Psych Appearance: grossly normal Mental Status: mental status grossly normal Assessment & Plan Assessment & Plan (1) Chronic GERD: Code(s): K21.9 - Gastro-esophageal reflux disease without esophagitis Category: Medical (2) Chronic constipation: Code(s): K59.09 - Other constipation Category: Medical (3) Dyspepsia: Code(s): R10.13 - Epigastric pain Category: Medical (4) Dysphagia: Code(s): R13.10 - Dysphagia, unspecified Qualifiers: Dysphagia type: pharyngoesophageal phase Qualified Code(s): R13.14 - Dysphagia, pharyngoesophageal phase Plan Patient will be sent for upper GI with barium swallow. Message sent to surgical schedulers to book upper endoscopy for him. Patient will stop taking pantoprazole and will start lansoprazole daily. Avoid dietary triggers and late night snacking. Staying upright for minimum 3 hours after meals discussed with patient. Patient will see me after the procedure, sooner on as needed basis. He is agreeable to this plan and verbalizes understanding of instructions. He was given the opportunity to ask questions and all questions answered. Thank you for allowing me to participate in his care Orders: Orders [place] upper GI w air w Ba Swallow Today K21.9 - Gastro-esophageal reflux disease without esophagitis, R13.10 - Dysphagia, unspecified Medications: New lansoprazole 30 mg PO DAILY 30 caps 3RF K21.9 - Gastro-esophageal reflux disease without esophagitis Discontinued pantoprazole Discontinued Reason: Doctor's Order 40 mg PO DAILY 90 days 90 tabs 1RF Coding Level of Care Code Est Pt Level 4 (48344) Complex EM visit Add On G2211 Diagnoses Chronic GERD K21.9 Chronic constipation K59.09 Dyspepsia R10.13 Pharyngoesophageal dysphagia R13.14 Dysphagia type: pharyngoesophageal phase Time Spent (min) 35 Comment 25 minutes spent with patient and additional 10 minutes spent reviewing his records
--- OUTSIDE RECORDS SUMMARY | 2025-04-11 13:09 | XMS_ITS | Patient Health Record ---
Author Organization [facility] Address [address] [place] [phone] Care Team Providers Care Slat Basket Maker Name Role Phone Luis Lopez Jr Reason For Referral No Information Plan Of Treatment No Information
--- OUTSIDE RECORDS SUMMARY | 2025-04-11 13:09 | XMS_ITS | Clinical Summary ---
Author Organization [email or web address] Address [address] [place] [address] Care Team Providers Care Laborer Tanbark Name Role Phone Unavailable Primary Care Provider Unavailabl e Encounters Date Type Department Care Team Description 02/22/[address] [facility] [address] [place] [address] [phone] Javier Waterman MD 02/22/[address] [phone] Javier Waterman MD 01/31/[address] [facility] [address] [place] [address] [phone] Javier Waterman MD from Last 3 Months [...] Description 05/26/2025 10:45 AM EDT Office Visit [facility] [address] [place] [address] Name, MD Kayden [address] [place] [address] Health Maintenance Due Date Last Done Comments [...] Luis F SS et al. SKYLA. 2013;310(19): 8330-3796 (http://education.Neuropure/faq/UTI021) HDL Cholesterol 49 > OR = 40 [...] Name LAB BLOOD ORDERABLES Final Resul t [facility] [address] from Last 3 Months or Most Recently Relevant to Health Maintenance Insurance [facility] ONE CARE < 65
== END 2025-04-11 12:36 | disposition home or self-care (01) ==
LOC: HO.HGI 11:36
PROVIDERS: PCP Internal Medicine; Visit Provider Nurse Practitioner Family
DX: K21.9 Gastro-esophageal reflux disease without esophagitis (principal); K59.09 Other constipation; R10.13 Epigastric pain; R13.14 Dysphagia, pharyngoesophageal phase
CPT/HCPCS: 99214; G2211

== ENCOUNTER → 2025-04-11 11:36 | Outpatient (BNVA) | payer OTHER, SELFPAY | PROVIDERS: PCP Internal Medicine; Visit Provider Nurse Practitioner Family | DX: K21.9 Gastro-esophageal reflux disease without esophagitis (principal); R13.14 Dysphagia, pharyngoesophageal phase; R10.13 Epigastric pain; K59.09 Other constipation | CPT/HCPCS: 99212 ==

== ENCOUNTER 2025-05-06 09:23 | Outpatient (AMB) | payer OTHER, SELFPAY ==
--- NOTE | 2025-05-06 09:24 | MHC.PC.OV ---
Vital Signs 05/06/25 09:26 Height 5 ft 9 in Weight 193 lb BMI 28.5 BP 126/74 Blood Pressure Location Lt brachial Position Sitting Pulse 68 Pulse Source Pulse Oximeter Temp 97.1 F Temp Source Temporal Artery Scan Pulse Oximetry (%) 98 Oxygen Delivery Method Room Air Intake Visit Reasons: Nasal dryness and mucus production Intake Note: Patient is here to follow up on Nasal dryness and mucus production. Bell Ringer Required: Yes Bell Ringer Language: Landscaping Manager Name: Bala ([phone]) Information Interpreted: non-clinical & clinical Unit Leader: Not Required per policy Accompanied by: Self / Same As Patient Allergies No Known Allergies (No Known Allergies*) Allergy (Verified 05/06/25 09:26) Medication List - Last Reconciled 05/06/25 by Paulo Sanchez MD acetaminophen (Tylenol Extra Strength) 500 mg PO Q6H PRN albuterol sulfate 90 mcg/actuation 2 puffs inhalation Q6H PRN aspirin 81 mg PO DAILY 90 days baclofen 5 mg PO BID cholecalciferol (vitamin D3) 25 mcg PO DAILY 90 days ibuprofen 800 mg PO Q8H PRN 30 days lansoprazole 30 mg PO DAILY levocetirizine 5 mg PO DAILY PRN 90 days lidocaine 5% 1 patch topical DAILY lisinopril 20 mg PO DAILY methocarbamol 500 mg PO TID metoprolol succinate ER 12.5 mg (1/2 x 25 mg) PO BID 90 days polyethylene glycol 3350 (Miralax) 17 grams PO DAILY simvastatin 20 mg PO BEDTIME 90 days triamcinolone acetonide (Nasacort) 1 spray intranasal DAILY 30 days Tobacco use date assessed: 05/06/25 Fall risk assessment: No Falls in past year Last assessed Fall Risk: 05/06/25 Dental Screening Dental Screen Date: 03/07/25 HPI HPI Comments History of Present Illness Details The patient is a 64-year-old male presenting with chronic nasal dryness. The nasal dryness has persisted for several years. He has been using oxymetazoline for a long period of time that he reports it helped him in the past but it does not help anymore. The patient also experiences ear congestion, particularly in one ear, linked to nasal congestion. Minimal cerumen was noted in the ear canal during examination. [facility] Medical History Chronic constipation Screen for colon cancer Dyspepsia Dyslipidemia Essential hypertension Surgical History Hx laparoscopic cholecystectomy Hx of colonoscopy Right leg injury Family History Mother Heart problem Father No problems noted. Social History Housing: House Alcohol intake: never Patient Tobacco Use Status: Never used Tobacco e-Cigarette/Vaping Use: Never Used Second Hand Smoke Exposure: No service: No Current occupational status: disabled Current occupation: rt hand Cognitive needs: No Hearing needs: No Vision needs: Yes Questionnaire PHQ-9 Over the last 2 weeks, how often have you been bothered by any of the following problems? 1. Little interest or pleasure in doing things: not at all Source: Developed by Drs. Austin Smith, Rosa Maria Ozuna, Clem Coffman and colleagues, with an educational giancarlo from [employer] Thrive Questionnaire Date Thrive assessed: 09/06/24 I am a: Patient What is your living situation today?: I have a steady place to live Within the past 12 months, did the food you bought not last and you didn't have the money to get more?: Never true Within the past 12 months, did you worry whether your food would run out before you got money to buy more?: Never true Do you have trouble paying for medicines?: No Do you have trouble getting transportation to medical appointments?: No Do you have trouble paying your heating and electricity bill?: No Do you have trouble taking care of your child, family member or friend?: No Do you have trouble with day-to-day activities such as bathing, preparing meals, shopping, managing finances, etc.?: No Are you currently unemployed and looking for a job?: Yes Are you interested in more education?: No Please select the resources that you would like help with: None Currently or been in a relationship where the following occur: I choose not to answer THRIVE Score: 0 BLANCA-7 AMB Questionnaire BLANCA-7 Date BLANCA - 7 assessed: 03/07/25 Source: Developed by Rosa Maria Desir Laith, Clem Coffman and colleagues, with an educational giancarlo from [employer] Review of Systems Const Details: Positives besides what was mentioned in HPI are in BOLD Constitutional: No Weight Change, No Fever, No Chills, No Night Sweats, No Fatigue, No Malaise ENT/Mouth: No Hearing Changes, No Ear Pain, No Nasal Congestion, No Sinus Pain, No Hoarseness, No sore throat, No Rhinorrhea, No Swallowing Difficulty Eyes: No Eye Pain, No Swelling, No Redness, No Foreign Body, No Discharge, No Vision Changes Cardiovascular: No Chest Pain, No SOB, No PND, No Dyspnea on Exertion, No Orthopnea, No Claudication, No Edema, No Palpitations Respiratory: No Cough, No Sputum, No Wheezing, No Smoke Exposure, No Dyspnea Gastrointestinal: No Nausea, No Vomiting, No Diarrhea, No Constipation, No Pain, No Heartburn, No Anorexia, No Dysphagia, No Hematochezia, No Melena, No Flatulence, No Jaundice Genitourinary: No Dysmenorrhea, No DUB, No Dyspareunia, No Dysuria, No Urinary Frequency, No Hematuria, No Urinary Incontinence, No Urgency, No Flank Pain, No Urinary Flow Changes, No Hesitancy Musculoskeletal: No Arthralgias, No Myalgias, No Joint Swelling, No Joint Stiffness, No Back Pain, No Neck Pain, No Injury History Skin: No Skin Lesions, No Pruritis, No Hair Changes, No Breast/Skin Changes, No Nipple Discharge Neuro: No Weakness, No Numbness, No Paresthesias, No Loss of Consciousness, No Syncope, No Dizziness, No Headache, No Coordination Changes, No Recent Falls Psych: No Anxiety/Panic, No Depression, No Insomnia, No Personality Changes, No Delusions, No Rumination, No SI/HI/AH/VH, No Social Issues, No Memory Changes, No Violence/Abuse Hx., No Eating Concerns Heme/Lymph: No Bruising, No Bleeding, No Transfusions History, No Lymphadenopathy Endocrine: No Polyuria, No Polydipsia, No Temperature Intolerance Physical exam (Primary Care) Vital Signs: Last Vital Signs Temp 97.1 F 05/06/25 09:26 Pulse 68 05/06/25 09:26 BP 126/74 05/06/25 09:26 Pulse Ox 98 05/06/25 09:26 Oxygen Delivery Method Room Air 05/06/25 09:26 BMI result Body Mass Index 28.5 Tobacco/Smoking Status: Tobacco use Status Tobacco use date assessed 05/06/25 05/06/25 09:31 Patient Tobacco Use Status Never used Tobacco 05/06/25 09:31 e-Cigarette/Vaping Use Never Used 05/06/25 09:31 Thrive Assessment: Date of Thrive Assessment Date Thrive assessed 09/06/24 05/06/25 09:31 Currently or been in a relationship where the following occur: I choose not to answer Const Other: Pertinent findings are in BOLD GENERAL APPEARANCE NAD, activity normal for age, well developed/ well nourished, no cyanosis, pallor, or diaphoresis. EYES lids/conjunctiva normal. EARS/NOSE/THROAT Mucous membranes moist, nares normal, lips/teeth normal uvula midline without oral pharyngeal erythema, exudate or swelling TMs normal bilaterally. No lymphangitis/lymphedema. HEAD/NECK normocephalic atraumatic, no facial trauma, neck is supple. RESPIRATORY respiratory effort normal, speaks in full sentences, no tripod position, no accessory muscle use. Lungs clear to auscultation without rhonchi, wheezes, rales CARDIAC Regular rate and rhythm, no edema. ABDOMINAL Soft, ND/NT. No evidence of fluid wave. No pulsatile masses on exam, rebound tenderness, Dominguez sign or pain over Mcburney's point. MUSCLES/EXTREMITIES No abnormal range of motion, no swelling. SKIN Warm, pink and dry. No rashes, dermatoses, petechiae or lesions. NEUROLOGICAL Speech is clear and appropriate. Normal level of consciousness. Gait and coordination are normal. 5/5 strength in all extremities. PSYCH Normal mood and affect. Judgement/competence is appropriate Ears: small amount of cerumen noted in the ear canals. Coding Level of Care Code Est Pt Level 3 (56839) Diagnoses Nasal congestion R09.81 Ear congestion H93.8X9 Assessment & Plan Assessment & Plan (1) Nasal congestion: Code(s): R09.81 - Nasal congestion Category: Medical Plan: The patient most likely has rebound congestion due to the use of OTC afrin medication. Emphasize the importance of avoiding extended use of Afrin nasal spray to prevent rebound congestion. Advise on managing nasal congestion and preventing nasal tissue damage to reduce instances of epistaxis. (2) Ear congestion: Code(s): H93.8X9 - Other specified disorders of ear, unspecified ear Category: Medical Plan: Most likely 2/2 eustechian tube dysfunction. Treatment as above. Plan I discussed with the patient that the current [id number] medication may cause rebound congestion if used long-term, and advised discontinuation. I recommended a corticosteroid nasal spray, explaining the dosing schedule and potential initial worsening of symptoms before improvement. I explained the connection between nasal and ear congestion and anticipated improvement with treatment. Medications: New sodium chloride 0.65% (Saline Nasal Mist) 1 spray intranasal BID PRN 44 mL 3RF dry nasal passages fluticasone propionate 50 mcg/actuation (Flonase Allergy Relief) 1 spray intranasally BID for 1 month. Followed by one time daily.; administer into each nostril 16 grams 3RF R09.81 - Nasal congestion
[2025-05-06 09:26] VITALS: BP 126/74; PULSE 68; TEMP 36.2; O2SAT 98; BMI 28.5
--- OUTSIDE RECORDS SUMMARY | 2025-05-06 09:58 | XMS_ITS | Clinical Summary ---
Author Organization [employer] Address [address] [place] [address] Care Team Providers Care Hospital Account Liaison Name Role Phone Unavailable Primary Care Provider Unavailabl e Encounters Date Type Department Care Team Description 02/22/2025 Telephone [facility] [address] [place] [address] [phone] Javier Waterman MD 02/22/[address] [phone] Javier Waterman MD from Last 3 Months [...] Upcoming Encounters Date Type Department Care Team ([facility] st Contact Info) Description 05/26/2025 10:45 AM EDT Office Visit [facility] [address] [place] [address] [phone] Name, MD Kayden [address] [place] [id number] Health Maintenance Due Date Last Done Comments [...] 1-dose series) 2018 COVID-19 Vaccine (4 - 2024-2 6 season) 2025 08/13/2021, 12/18/2020, 2020 Influenza Vaccine (#1) 2025 [...] factors. LDL-C is now calculated using the Rashel calculation, which is a validated novel method providing better accuracy than the Friedewald equation in the estimation of LDL-C. Luis F SS et al. SKYLA. 2013;310(19): 9101-8199 (http://education.Gesplan/faq/LQC723) HDL Cholesterol 49 > OR = 40 mg/dL [facility] Chol/HDLC Ratio 3.6 <5.0 (calc) [facility] Non-HDL Cholesterol 128 <130 mg/dL (calc) [facility] Comment: For patients with diabetes plus 1 major ASCVD risk factor, treating to a non-HDL-C goal of <100 mg/dL (LDL-C of <70 mg/dL) is considered a therapeutic option. 04/28/2020 10:0 6 AM EDT us Kayden Hopson MD LAB BLOOD ORDERABLES Final Resul t [facility] [address] from Last 3 Months or Most Recently Relevant to Health Maintenance Insurance [facility] ONE CARE < 65
== END 2025-05-06 09:46 | disposition home or self-care (01) ==
LOC: HO.HMCH 09:24
PROVIDERS: PCP Internal Medicine; Visit Provider Internal Medicine
DX: R09.81 Nasal congestion (principal); H93.8X9 Other specified disorders of ear, unspecified ear

== ENCOUNTER → 2025-05-06 09:23 | Outpatient (BNVA) | payer OTHER, SELFPAY | PROVIDERS: PCP Internal Medicine; Visit Provider Internal Medicine | DX: R09.81 Nasal congestion (principal); H93.8X3 Other specified disorders of ear, bilateral | CPT/HCPCS: 99212 ==

== ENCOUNTER 2025-05-26 11:17 | Outpatient (REF) | payer OTHER, SELFPAY | END 2025-05-26 11:18 | disposition home or self-care (01) | LOC: HO.HHCX 11:17 | PROVIDERS: PCP Internal Medicine Geriatric Medicine; Visit Provider Internal Medicine Geriatric Medicine | DX: Z13.89 Encounter for screening for other disorder (principal) ==

== ENCOUNTER 2025-05-26 11:45 | Outpatient (REF) | payer OTHER, SELFPAY ==
--- NOTE | ~2025-05-26 | XR_ITS ---
EXAMINATION: XR CHEST 2 VIEWS HISTORY: 3 weeks of cough and right lower lung crackles COMPARISON: There are no prior studies available for comparison. FINDINGS: PA and lateral views of the chest are submitted. There are linear opacities in the right lower lobe compatible with subsegmental atelectasis or early/resolving pneumonia. The left lung is clear. There is no pleural effusion, pneumothorax, or pulmonary vascular congestion. The heart is normal in size. The bones are intact. XR/XR chest 2V IMPRESSION: Subsegmental atelectasis versus early/resolving pneumonia in the right lower lobe. Follow-up is recommended to document resolution. Electronically signed by: [place] Johnson MD 05/26/2025 12:10 PM EDT
== END 2025-05-26 11:46 | disposition home or self-care (01) ==
LOC: HO.XRAY 11:45
PROVIDERS: PCP Internal Medicine Geriatric Medicine; Visit Provider Internal Medicine Geriatric Medicine
DX: R06.2 Wheezing (principal); R05.9 Cough, unspecified; R09.89 Other specified symptoms and signs involving the circulatory and respiratory systems
CPT/HCPCS: 71046

== ENCOUNTER → 2025-05-26 11:49 | Outpatient (BNV) | payer OTHER, SELFPAY | PROVIDERS: PCP Internal Medicine Geriatric Medicine; Visit Provider Radiology Diagnostic Radiology | DX: R05.9 Cough, unspecified (principal); R09.89 Other specified symptoms and signs involving the circulatory and respiratory systems | CPT/HCPCS: 71046 ==

== ENCOUNTER 2025-05-30 09:26 | Outpatient (REF) | payer OTHER, SELFPAY ==
--- OUTSIDE RECORDS SUMMARY | 2025-05-26 10:45 | XMS_ITS | Encounter Summary ---
Author Organization [employer] Address [address] [facility] 7[address] [place] [address] Care Team Providers Care Sweat Box Attendant Name Role Phone Name, Kayden THURSTON Primary Care Provider [phone] Reason for Visit * Reason Comments Transfer patient visit Encounter Details Date Type Department Care Team ([facility] Contact Info) Description 05/26/2025 10:45 AM EDT Office Visit [facility] [address] [place] [address] [phone] Name, MD Kayden [address] [place] [address] Nasal congestion (Primary Dx); Seasonal allergies; Postnasal drip; Wheezing; Cough, unspecified type; Expiratory respiratory crackles; Essential hypertension; Hypercholesterolemia Social History Tobacco Use Types Packs/Day Years Used Date Smoking Tobacco: Never Passive Smoke Exposure: Never Smokeless Tobacco: Never Tobacco Cessation:Counseling Given: Not Answered Alcohol Use Standard Drinks/Week Comments Never 0 (1 standard drink = 0.6 oz pur e alcohol) Depression Answer Date Recorded Patient Health Questionnaire-9 Score 1 05/26/2025 Patient Health Questionnaire-9 Score 1 05/26/2025 Last PHQ-9: Questionnaire Data Not on file 1 Housing Stability Answer Date Recorded What is your housing situation today? I have diogenes paulino 05/26/[address] you li ve. Do you have problems with any of the following? None of the above 05/26/2025 Food Insecurity Answer Date Recorded Within the past 12 months, y ou worried that your food would run out before you got money to buy more: Never True 05/26/2025 Within the past 12 months,th e food you bought just didn't last and you didn't have enough money to get more: Never True 04/2025 Transportation Answer Date Recorded In the past 12 months, has l ack of transportation kept you from medical appts, meetings, work or from getting things needed for daily living? No 05/26/2025 Utilities Answer Date Recorded In the past 12 months, has t he electric, gas, oil or water company threatened to shut off services in your home? No 05/26/2025 Depression Answer Date Recorded Patient Health Questionnaire-2 Score 0 05/26/2025 Internet Access Answer Date Recorded Internet Access Q1 Yes 05/26/2025 Internet Access Q2 Not on file 05/26/2025 Sex and Gender Information Value Date Recorded Sex Assigned at Male 06/17/2022 10:18 AM EDT Legal Sex Male 10:18 AM EDT Gender Identity Male 06/17/2022 10:18 AM EDT Sexual Orientation Straight 06/17/2022 10 :18 AM EDT documented as of this encounter Last Filed Vital Signs Vital Sign Reading Time Taken Comments Blood Pressure 132/80 05/26/2025 11:04 AM EDT Pulse 103 05/26/2025 10:41 AM EDT Temperature 37.4 C (99.3 F) 05/26/2025 10:41 AM EDT Respiratory Rate 22 05/26/2025 10:41 AM EDT Oxygen Saturation 98% 05/26/2025 10:41 AM EDT Inhaled Oxygen Concentration - - Weight 88.7 kg (195 lb 8 oz) 05/26/2025 10:41 AM EDT Height 178.5 cm (5' 10.28 ) 05/26/2025 10:41 AM EDT Body Mass Index 27.83 05/26/2025 10:41 AM EDT documented in this encounter Functional Status * Over the past 2 weeks, how often have you been bothered by any of the following problems? Question Answer Date of Assessment Author Patient Health Questionnaire-2 Score 0 05/26/2025 10:42 AM EDT Natali Liu MA * Little interest or pleasure in doing things Answer Date of Assessment Author Not at all 05/26/2025 10:42 AM EDT Natali Wheeler Ma, MA * Feeling down, depressed, or hopeless Answer Date of Assessment Author Not at all 05/26/2025 10:42 AM EDT Natali Wheeler Ma, MA * Trouble falling or staying asleep, or sleeping too much Answer Date of Assessment Author Not at all 05/26/2025 10:42 AM EDT Natali Wheeler Ma, MA * Feeling tired or having little energy Answer Date of Assessment Author Several days 05/26/2025 10:42 AM EDNatali Lobato Ma, MA * Poor appetite or overeating Answer Date of Assessment Author Not at all 05/26/2025 10:42 AM EDNatali Lobato Ma, MA * Feeling bad about yourself - or that you are a failure or have let yourself or your family down Answer Date of Assessment Author Not at all 05/26/2025 10:42 AM Natali Cardozo Ma, MA * Trouble concentrating on things, such as reading the newspaper or watching television Answer Date of Assessment Author Not at all 05/26/2025 10:42 AM Natali Cardozo Ma, MA * Moving or speaking so slowly that other people could have noticed? Or the opposite - being so fidgety or restless that you have been moving around a lot more than usual. Answer Date of Assessment Author Not at all 05/26/2025 10:42 AM Natali Cardozo Ma, MA * Thoughts that you would be better off or hurting yourself in some way Answer Date of Assessment Author Not at all 05/26/2025 10:42 AM EDNatali Lobato Ma, MA * Patient Health Questionnaire-9 Score Answer Date of Assessment Author 1 05/26/2025 10:42 AM Natali Cardozo Ma, MA * How difficult have these problems made it for you to do your work, take care of things at home, or get along with other people? Answer Date of Assessment Author Somewhat difficult 05/26/2025 10:42 AM Natali Aly MA * Over the last 2 weeks, how often have you been bothered by any of the following problems? Question Answer Date of Assessment Author Feeling nervous, anxious, or on edge 0 05/26/2025 10:42 AM EDT Natali Monzon MA Not being able to stop or control worrying 0 05/26/2025 10:42 AM EDT Natali Monzon MA Worrying too much about different things 0 05/26/2025 10:42 AM EDT Natali Monzon MA Trouble relaxing 0 05/26/2025 10:42 AM EDT Natali Monzon MA Being so restless that it is hard to sit still 0 05/26/2025 10:42 AM EDT Natali Monzon MA Becoming easily annoyed or irritable 0 05/26/2025 10:42 AM EDT Natali Monzon MA Feeling afraid as if something awful might happen 0 05/26/2025 10:42 AM EDT Natali Goncalves MA BLANCA-7 Total Score 0 05/26/2025 10:42 AM EDT Natali Monzon MA documented as of this encounter Progress Notes * Kayden Hopson, - 05/26/2025 10:45 AM EDT Subjective Patient ID: Yonatan Mendoza is a 64 y.o. male who presents for Transfer patient visit. Patient is transferring his care from PCP outside [facility]. We do not have much of his medical records. We do have a note from ENT from 2022 for evaluation of his chronic nasal congestion. He has personalhistory of hypertension, high cholesterol, and chronic rhinitis possibly multifactorial because of seasonal allergies and frequent use of Afrin. Today he complains of persistent nasal congestion, postnasal drip, 3 weeks of nonproductive cough associated with wheezing and shortness of breath. He does not have any fevers or chills, no sinus pain, unfortunately he is still using Afrin frequently. Hehas a prescription for Flonase that he does not use regularly. He is not a smoker. He does not haveany history of asthma or COPD. Review of Systems Constitutional: Negative for chills, fatigue and fever. HENT: Positive for postnasal drip and rhinorrhea. Negative for sore throat. Respiratory: Positive for cough, shortness of breath and wheezing. Negative for chest tightness. Cardiovascular: Negative for chest pain, palpitations and leg swelling. Gastrointestinal: Negative for abdominal pain and blood in stool. Objective Vitals: 05/26/25 1041 05/26/25 1104 BP: (!) 172/84 132/80 BP Location: Left arm Patient Position: Sitting BP Cuff Size: Adult Pulse: 103 Resp: 22 Temp: 99.3 ??F (37.4 ??C) TempSrc: Oral SpO2: 98% Weight: 195 lb 8 oz (88.7 kg) Height: 5' 10.28 (1.785 m) Physical Exam Constitutional: Appearance: Normal appearance. HENT: Nose: Right Sinus: No maxillary sinus tenderness or frontal sinus tenderness. Left Sinus: No maxillary sinus tenderness or frontal sinus tenderness. Cardiovascular: Rate and Rhythm: Normal rate and regular rhythm. Heart sounds: No murmur heard. Pulmonary: Effort: Pulmonary effort is normal. No respiratory distress. Breath sounds: Examination of the right-lower field reveals wheezing and rales. Wheezing and rales present. No rhonchi. Abdominal: Palpations: Abdomen is soft. Tenderness: There is no abdominal tenderness. Musculoskeletal: Right lower leg: No edema. Left lower leg: No edema. Neurological: Mental Status: He is alert. Assessment/Plan Diagnoses and all orders for this visit: Nasal congestion Comments: I recommended the patient to stop using Afrin completely I recommended to use Flonase daily for nasal congestion. I explained Flonase will take at least a couple weeks to start working and it must be used daily I added Singulair to his medications. Since the patient is coughing and wheezing I prescribed short course of prednisone and albuterol touse 3 times a day as needed. Since the patient has crackles and wheezing on physical exam I recommended evaluation with a chest x-ray. I explained the patient that if he does not stop using Afrin his nasal congestion will not improve. I will check and CBC with diff Seasonal allergies Postnasal drip Wheezing - XR Chest 2 Views; Future Cough, unspecified type - XR Chest 2 Views; Future Expiratory respiratory crackles - XR Chest 2 Views; Future Essential hypertension Comments: Repeat blood pressure is normal. Continue same dose of lisinopril and metoprolol Hypercholesterolemia Comments: Continue current dose of statin. Check blood work CMP and lipids fasting Other orders - fluticasone (Flonase) 50 MCG/ACT nasal spray; Administer 2 sprays into each nostril Once per day.Shake gently. Before first use, prime pump. After use, clean tip and replace cap. - montelukast (Singulair) 10 MG tablet; Take 1 tablet (10 mg) by mouth Once per day. - albuterol 108 (90 Base) MCG/ACT inhaler; Inhale 2 puffs every 6 (six) hours if needed for wheezing. - predniSONE (Deltasone) 20 MG tablet; Take 2 tablets (40 mg) by mouth Once per day for 5 days. No future appointments. documented in this encounter Plan of Treatment Scheduled Orders Name Type Priority Associated Diagnoses Orde r Schedule CBC auto differential Lab Routine Nasal congestion Cough, unspecified type Expiratory respiratory crackles Expected: 05/26/2025 (Approximate), Expires: 05/26/2026 Comprehensive Metabolic Panel Lab Routine Essential hypertension Hypercholesterolemia Expected: 05/26/2025 (Approximate), Expires: 05/26/2026 Lipid Panel, Standard Lab Routine Hypercholesterolemia Expected: 05/26/2025 (Approximate), Expires: 05/26/2026 documented as of this encounter Procedures Procedure Name Priority Date/Time Associated Diagnosis Comments XR CHEST 2 VIEWS Routine 05/26/2025 12:0 3 PM EDT Wheezing Cough, unspecified type Expiratory respiratory crackles documented in this encounter Results * XR Chest 2 Views (05/26/2025 12:03 PM EDT) Anatomical Region Laterality Modality Chest Radiographic Estelle ging 05/26/2025 12:0 3 PM EDT Narrative 05/26/2025 12:13 PM EDT [address] [address] XRay Report Signed Patient: Yonatan Mendoza MR#: [id number] 29 : 1960 Acct:[id number] Age/Sex: 64 / M ADM Date: 05/26/25 Loc: [facility] Attending Dr: Kayden Hopson MD Ordering Physician: Name,Kayden MD Date of Service: 05/26/25 Procedure(s): XR chest 2V Accession Number(s): [id number] cc: Kayden Hopson MD Reason for Exam: 3 weeks of cough and right lower lung crackles EXAMINATION: XR CHEST 2 VIEWS HISTORY: 3 weeks of cough and right lower lung crackles COMPARISON: There are no prior studies available for comparison. FINDINGS: PA and lateral views of the chest are submitted. There are linear opacities in the right lower lobe compatible with subsegmental atelectasis or early/resolving pneumonia. The left lung is clear. There is no pleural effusion, pneumothorax, or pulmonary vascular congestion. The heart is normal in size. The bones are intact. XR/XR chest 2V IMPRESSION: Subsegmental atelectasis versus early/resolving pneumonia in the right lower lobe. Follow-up is recommended to document resolution. Electronically signed by: [place] Johnson MD 05/26/2025 12:10 PM EDT Dictated By: [place] Johnson MD Signed By: <Electronically signed by [place] Johnson MD in OV> 05/26/25 1210 DD/ 1203 TD/TT: 05/26/25 1206 Clinical Documentation Consultant: Procedure Note Donotuseinterpreter, Image - 05/26/[address] [address] XRay Report Signed Patient: Yonatan Mendoza R#: [id number] 29 : 9Acct:[id number] Age/Sex: 64 / MADM Date: 05/26/25 Loc: HO.XRAY Attending Dr: Kayden Hopson MD Ordering Physician: Kayden Hopson MD Date of Service: 05/26/25 Procedure(s): XR chest 2V Accession Number(s): [id number] cc: Kayden Hopson MD Reason for Exam: 3 weeks of cough and right lower lung crackles EXAMINATION: XR CHEST 2 VIEWS HISTORY: 3 weeks of cough and right lower lung crackles COMPARISON: There are no prior studies available for comparison. FINDINGS: PA and lateral views of the chest are submitted. There are linear opacities in the right lower lobe compatible with subsegmental atelectasis or early/resolving pneumonia. The left lung is clear. There is no pleural effusion, pneumothorax, or pulmonary vascular congestion. The heart is normal in size. The bones are intact. XR/XR chest 2V IMPRESSION: Subsegmental atelectasis versus early/resolving pneumonia in the right lower lobe. Follow-up is recommended to document resolution. Electronically signed by: [place] Johnson MD 05/26/2025 12:10 PM EDT RP Dictated By: [place] Johnson MD Signed By: <Electronically signed by [place] Johnson MD in OV> 05/26/25 1210 DD/ 1203 TD/TT: 05/26/25 1206 Clinical Documentation Consultant: Kayden Hopson MD IMG XR PROCEDURES Final Result documented in this encounter Visit Diagnoses Diagnosis Nasal congestion- Primary Other diseases of nasal cavity and sinuses Seasonal allergies Allergic rhinitis, cause unspecified Postnasal drip Wheezing Cough, unspecified type Expiratory respiratory crackles Essential hypertension Unspecified essential hypertension Hypercholesterolemia Pure hypercholesterolemia documented in this encounter Additional Health Concerns Assessment Noted Time PHQ-9 Depression Total Score: 1 05/26/20 10:42 AM EDT documented as of this encounter Care Teams Sweat Box Attendant Relationship Specialty Start Date End Date Name, MD Kayden [address] [place] [address] PCP - General Internal Medicine 05/26/25 documented as of this encounter
--- OUTSIDE RECORDS SUMMARY | 2025-05-30 09:30 | XMS_ITS | Encounter Summary ---
Author Organization [employer] Address [address] [facility] [address] [place] [address] Care Team Providers Care Athletic Turf Worker Name Role Phone Unavailable Primary Care Provider Unavailabl e Reason for Visit * Reason Onset Date Comments chart prep 05/25/2025 Encounter Details Date Type Department Care Team ([facility] Contact Info) Description 05/25/2025 Telephone [facility] [address] [place] [address] Bhupendra Wyatt MA chart prep Social History Tobacco Use Types Packs/Day Years Used Date Smoking Tobacco: Never Assessed Depression Answer Date Recorded Patient Health Questionnaire-9 [...] AM EDT documented as of this encounter Miscellaneous Notes * Telephone Encounter - Bhupendra Wyatt MA - 05/25/2025 2:07 PM EDT Chart Prep Labs: not applicable Images: not applicable Referrals: not applicable Vaccines due: Covid, Flu, Hep B, Hep A, RSV, and Zoster Screenings: colonoscopy Overdue care gaps: SBIRT, SDOH, PHQ-9, BLANCA-7, Oral health screening, and Disability screen documented in this encounter Plan of Treatment Not on file documented as of this encounter Visit Diagnoses Not on filedocumented in this encounter
--- OUTSIDE RECORDS SUMMARY | 2025-05-30 09:31 | XMS_ITS | Encounter Summary ---
Author Organization [employer] Address [address] [place] [address] Care Team Providers Care Substation Design Draftsperson Name Role Phone Name, Kayden THURSTON Primary Care Provider [phone] Encounter Details Date Type Department Care Team ([facility] Contact Info) Description 05/26/2025 Results Follow-Up [facility] [address] [place], [place] [phone] Name, MD Kayden [address] [place] [address] XR Chest 2 Views Social History Tobacco Use Types Packs/Day Years Used Date Smoking Tobacco: Never Passive Smoke Exposure: Never Smokeless Tobacco: Never Alcohol Use Standard Drinks/Week Comments Never 0 [...] AM EDT documented as of this encounter Functional Status * Over the [...] 10:42 AM Natali Cardozo Ma, MA * Feeling tired or having little energy Answer Date of Assessment Author Several days 05/26/2025 10:42 AM EDT Natali Wheeler Ma, [place] * Poor appetite or overeating Answer Date of Assessment Author Not at all 05/26/2025 10:42 AM Natali Cardozo Ma, MA * Feeling bad about yourself [...] 10:42 AM Natali Cardozo Ma, MA * Patient Health Questionnaire-9 Score [...] or on edge 0 05/26/2025 10:42 AM Natali Aly MA Not being able to stop or control worrying 0 05/26/2025 10:42 AM Natali Aly MA Worrying too much about different things 0 05/26/2025 10:42 AM Natali Aly MA Trouble relaxing 0 05/26/2025 10:42 AM Natali Aly MA Being so restless that it is hard to sit still 0 05/26/2025 10:42 AM Natali Aly MA Becoming easily annoyed or irritable 0 05/26/2025 10:42 AM Natali Aly MA Feeling afraid as if something awful might happen 0 05/26/2025 10:42 AM EDT Natali Goncalves MA BLANCA-7 Total Score 0 05/26/2025 10:42 AM EDT Natali Monzon MA documented as of this encounter Plan of Treatment Not on file documented as of this encounter Visit Diagnoses Diagnosis Community acquired pneumonia of right lower lobe of lung- Primary documented in this encounter Additional Health Concerns Assessment Noted Time PHQ-9 Depression Total Score: 1 05/26/20 10:42 AM EDT documented as of this encounter Care Teams Substation Design Draftsperson Relationship Specialty Start Date End Date Name, MD Kayden [address] [place] [address] PCP - General Internal Medicine 05/26/25 documented as of this encounter
--- OUTSIDE RECORDS SUMMARY | 2025-05-30 09:31 | XMS_ITS | Patient Health Record ---
Author Organization [facility] Address [address] [place] [id number] Care Team Providers Care Cook Dessert Name Role Phone Luis Lopez Jr Reason For Referral No Information Plan Of Treatment No Information
--- OUTSIDE RECORDS SUMMARY | 2025-05-30 09:31 | XMS_ITS | Encounter Summary ---
Author Organization [employer] Address [address] [place] [address] Care Team Providers Care Coal Pulverizing Operator Name Role Phone Name, Kayden THURSTON Primary Care Provider [phone] Encounter Details Date Type Department Care Team (Latest Contact Info) Description 05/26/2025 Travel Social History Tobacco Use Types Packs/Day Years [...] EDT Natali Wheeler Ma, MA * Feeling bad about yourself - or that you are a failure or have let yourself or your family down Answer Date of Assessment Author Not at all 05/26/2025 10:42 AM EDNatali Lobato Ma, [place] * Trouble concentrating on things, such as reading the newspaper or watching television Answer Date of Assessment Author Not at all 05/26/2025 10:42 AM EDT Natali Wheeler Ma, MA * Moving or speaking so slowly that other people could have noticed? Or the opposite - being so fidgety or restless that you have been moving around a lot more than usual. Answer Date of Assessment Author Not at all 05/26/2025 10:42 AM EDT Natali Wheeler Ma, MA * Thoughts that you would be better off or hurting yourself in some way Answer Date of Assessment Author Not at all 05/26/2025 10:42 AM EDT Natali Wheeler Ma, MA * Patient Health Questionnaire-9 Score Answer Date of Assessment Author 1 05/26/2025 10:42 AM EDT Natali Wheeler Ma, MA * How difficult have these problems made it for you to do your work, take care of things at home, or get along with other people? Answer Date of Assessment Author Somewhat difficult 05/26/2025 10:42 AM EDNatali Odell MA * Over the last 2 weeks, [...] to sit still 0 05/26/2025 10:42 AM JAMESONT Natali Monzon MA Becoming easily annoyed or irritable 0 05/26/2025 10:42 AM Natali Aly MA Feeling afraid as if something awful might happen 0 05/26/2025 10:42 AM EDT Natali Goncalves MA BLANCA-7 Total Score 0 05/26/2025 10:42 AM Natali Aly MA documented as of this encounter Plan of Treatment Not on file documented as of this encounter Visit Diagnoses Not on filedocumented in this encounter Additional Health Concerns Assessment Noted Time PHQ-9 Depression Total Score: 1 05/26/20 10:42 AM EDT documented as of this encounter Care Teams Coal Pulverizing Operator Relationship Specialty Start Date End Date Name, MD Kayden [address] [place] [address] PCP - General Internal Medicine 05/26/25 documented as of this encounter
--- OUTSIDE RECORDS SUMMARY | 2025-05-30 09:31 | XMS_ITS | Clinical Summary ---
Author Organization [employer] Address [address] [place] [address] Care Team Providers Care Community Health Specialist Name Role Phone Name, Kayden THURSTON Primary Care Provider [phone] Allergies No known active allergies Medications lisinopril 20 MG tablet Take 1 tablet by mouth Once per day. 5 Active metoprolol succinate XL (Toprol-XL) 25 MG 24 hr tablet Take 0.5 tablets by mouth 2 times daily. 5 Active simvastatin (Zocor) 20 MG tablet Take 20 mg by mouth at bedtime. Active cholecalciferol (Vitamin D-3) 25 MCG (1000 UT) capsule Take 1 capsule by mouth Once per day. 5 Active fluticasone (Flonase) 50 MCG/ACT nasal spray Administer 2 sprays into each nostril Once per day. Shake gently. Before first use, prime pump. After use, clean tip and replace cap. 5 05/26/20 26 Active montelukast (Singulair) 10 MG tablet Take 1 tablet (10 mg) by mouth Once per day. 30 tablet 2 5 08/24/19 26 Active albuterol 108 (90 Base) MCG/ACT inhaler Inhale 2 puffs every 6 (six) hours if needed for wheezing. 18 g 11 5 05/26/20 26 Active predniSONE (Deltasone) 20 MG tablet Take 2 tablets (40 mg) by mouth Once per day for 5 days. 10 tablet 5 05/31/20 25 Active amoxicillin (Amoxil) 500 MG tablet Take 2 tablets (1,000 mg) by mouth 3 times daily for 5 days. 30 tablet 5 05/31/20 25 Active doxycycline (Vibra-Tabs) 100 MG tablet Take 1 tablet (100 mg) by mouth 2 times daily for 5 days. Take with a full glass of water and do not lie down for at least 30 minutes after. 10 tablet 5 05/31/20 25 Active Active Problems Problem Noted Date Diagnosed Date Community acquired pneumonia of right lower lobe of lung 05/26/2025 Essential hypertension 05/07/2018 Hypercholesterolemia 05/07/2018 Encounters Date Type Department Care Team Description 05/26/2025 10:45 AM EDT Office Visit [facility] [address] [place] [phone] Kayden Hopson MD Nasal congestion (Primary Dx); Seasonal allergies; Postnasal drip; Wheezing; Cough, unspecified type; Expiratory respiratory crackles; Essential hypertension; Hypercholesterolemia 05/26/2025 Results Follow-Up [facility] [address] [place] [address] Kayden Hopson MD XR Chest 2 Views 05/26/2025 Travel 05/25/2025 Telephone [facility] [address] [place] [address] Bhupendra Wyatt MA chart prep 05/19/2025 Patient Outreach [facility] [address] [place], [place] [phone] Kayden Hopson MD Pre-visit Planning (SDOH unable to reach [facility] ) from Last 3 Months Social History Tobacco [...] Mass Index 27.83 05/26/2025 10:41 AM EDT Plan of Treatment Health Maintenance Due Date Last Done Comments CT Colonography 1960 Colonoscopy 1960 Colorectal Cancer Screening 1960 FIT DNA/Cologuard 1958 FIT 1958 FOBT 1960 Sigmoidoscopy 1960 Hepatitis C Screening 1976 Hepatitis A Vaccines [...] (#1) 2025 07/03/2007 Lipid Panel 04/28/2025 04/28/2020 Alcohol/Substance Use Screening 05/26/2026 05/26/2025 Depression Screening 05/26/2026 05/26/2025, 05/26/2025 SDOH Screening 05/26/2026 05/26/2025 Tobacco Screening 05/26/2026 05/26/2025 DTaP/Tdap/Td Vaccines (3 - T d or [...] Wheezing Cough, unspecified type Expiratory respiratory crackles LIPID PANEL, STANDARD Routine 04/28/2020 10:06 AM EDT from Last 3 Months or Most Recently Relevant to Health Maintenance Results * XR Chest 2 Views (05/26/2025 12:03 PM EDT) Anatomical Region Laterality Modality Chest Radiographic Estelle ging 05/26/2025 12:0 3 PM EDT Narrative 05/26/2025 12:13 PM EDT [address] [address] XRay Report Signed Patient: Yonatan Mendoza MR#: [id number] 29 : 1960 Acct:[id number] Age/Sex: 64 / M ADM Date: 05/26/25 Loc: HO.XRAY Attending Dr: Kayden Hopson MD Ordering Physician: Kayden Hopson MD Date of Service: 05/26/25 Procedure(s): XR chest 2V Accession Number(s): [id number] cc: Kayden Hopson MD Reason for Exam: [...] 05/26/25 1210 DD/ 1203 TD/TT: 05/26/25 1206 Arc Welding Machine Operator: Procedure Note Donotuseinterpreter, Image - 05/26/[address] [address] XRay Report Signed Patient: Yonatan Mendoza RMR#: [id number] [birth year] : 9Acct:[id number] Age/Sex: 64 / MADM Date: 05/26/25 Loc: KULDEEP Attending Dr: Kayden Hopson MD Ordering Physician: Kayden Hopson MD Date of Service: 05/26/25 Procedure(s): XR chest 2V Accession Number(s): [id number] cc: Name,Kayden THURSTON Reason for Exam: 3 weeks of cough [...] 05/26/25 1210 DD/ 1203 TD/TT: 05/26/25 1206 Arc Welding Machine Operator: Kayden Hopson MD IM XR PROCEDURES Final Result * (ABNORMAL) LIPID PANEL, STANDARD (04/28/2020 10:06 AM EDT) [facility] Cholesterol, Total 177 <200 mg/dL [facility] [...] Luis F SS et al. SKYLA. 2013;310(19): 0167-4882 (http://education.VeriShow.Travora [employer]/faq/YDI691) HDL Cholesterol 49 > OR = 40 [...] MD LAB BLOOD ORDERABLES Final Resul t [facility] [address] from Last 3 Months or Most Recently Relevant to Health Maintenance Insurance [address] ONE CARE < [address] [place]ON [id number] Care Teams Community Health Specialist Relationship Specialty Start Date End Date Name, MD Kayden [address] [place] [address] PCP - General Internal Medicine 05/26/25
[2025-05-30 11:09] LABS: MANUAL DIFF FLAG NO
[2025-05-30 11:18] LABS: Hematocrit 36.0 % (42.0-52.0); Hemoglobin 11.4 g/dl (14.0-18.0); Imm Gran Abs Auto 0.15 X10*3/uL (0.00-0.03); Imm Gran Pct Auto 1.2 % (0.0-0.4); Lymphocytes Absolute Auto 2.6 X10*3/uL (1.2-4.9); Mean Corpuscular HGB Conc 31.7 g/dl (31.0-36.0); Mean Corpuscular Hemoglobin 27.8 pg (27.0-33.0); Mean Corpuscular Volume 87.8 fL (80.0-98.0); NRBC Abs Auto 0.000 X10*3/uL (0.0-0.012); NRBC Pct Auto 0.0 /100WBC (0.0-0.2); Platelet Count 322 X10*3/uL (160-400); Red Blood Count 4.10 X10*6/uL (4.60-5.80); White Blood Count 12.8 X10*3/uL (4.8-10.8)
[2025-05-30 11:28] LABS: Alanine Aminotransferase 21 U/L (0-40); Albumin Level 4.4 g/dL (3.5-5.0); Alkaline Phosphatase 62 U/L (39-117); Anion Gap 11 (12-20); Aspartate Amino Transferase 31 U/L (5-37); Blood Urea Nitrogen 19 mg/dL (9-16); Calcium 9.1 mg/dL (8.4-10.2); Carbon Dioxide 29 mmol/L (22-29); Chloride 106 mmol/L (96-108); Cholesterol 171 mg/dL (<200); Estimated Glomerular Filt Rate > 60; HDL Cholesterol 47 mg/dL (>40); Potassium 3.8 mmol/L (3.3-5.1); Sodium 142 mmol/L (135-145); Total Protein 7.1 g/dL (6.5-8.0); Triglycerides 66 mg/dL (<150)
== END 2025-05-30 09:27 | disposition home or self-care (01) ==
LOC: HO.HHCL 09:26
PROVIDERS: PCP Internal Medicine Geriatric Medicine; Visit Provider Internal Medicine Geriatric Medicine
DX: I10 Essential (primary) hypertension (principal); E78.00 Pure hypercholesterolemia, unspecified; R09.81 Nasal congestion; R05.9 Cough, unspecified; R09.89 Other specified symptoms and signs involving the circulatory and respiratory systems
CPT/HCPCS: 36415; 80053; 80061; 85025

== ENCOUNTER 2025-06-30 09:13 | Outpatient (REF) | payer OTHER, SELFPAY ==
--- NOTE | ~2025-06-30 | FL_ITS ---
EXAMINATION: XR UPPER GI SERIES WITH barium swallow CLINICAL INFORMATION: Gastroesophageal reflux disease without esophagitis COMPARISON: None available. TECHNIQUE: Routine upper GI air contrast study with barium in upright and lying position was performed subsequently barium swallow with solid food and barium tablet was performed in upright view. FINDINGS: Following oral administration of thick barium and effervescent granules there is slight delay in initiation of oral phase. On bolus reaching the pharynx there is normal antegrade flow seen through the pharynx, esophagus into stomach without any obstruction, narrowing or stricture. No intraluminal filling defect or extrinsic compression seen. Minimal retention of barium seen in the valleculae and piriform sinuses without laryngeal penetration or aspiration. On placing patient supine and prone lying there is increased gastric secretions. The mucosal pattern of stomach, duodenal bulb and the sweep is normal. The course, caliber and peristalsis in the stomach, duodenal bulb and the sweep is normal. On oral administration of solid food coated barium paste there is normal oral mastication and propagation bolus from the oral cavity through the pharynx, esophagus and stomach. On oral administration of barium tablet there is spontaneous passage through the pharynx or esophagus into stomach with no obstruction seen. FLUOROSCOPY TIME: 2 minute and 27 seconds DOSE AREA PRODUCT: 2174 uGy-m2 (microgray-meter squared) FL/FL upper GI w air w Ba Swallow IMPRESSION: Increased gastric secretions suggestive of gastritis. No gastroesophageal reflux or hiatal hernia. Electronically signed by: Carlos A Vega MD 06/30/2025 02:09 PM MAYI
--- OUTSIDE RECORDS SUMMARY | 2025-06-30 10:29 | XMS_ITS | Clinical Summary ---
Author Organization [employer] Address [address] [facility] [address] [place] [address] Care Team Providers Care Information Systems Project Manager Name Role Phone Name, Kayden THURSTON Primary Care Provider [phone] Allergies No known active allergies Medications lisinopril [...] 5 days. 10 tablet 5 05/31/20 25 amoxicillin (Amoxil) 500 MG tablet Take 2 tablets (1,000 mg) by mouth 3 times daily for 5 days. 30 tablet 5 05/31/20 25 doxycycline (Vibra-Tabs) 100 MG tablet Take 1 tablet (100 mg) by mouth 2 times daily for 5 days. Take with a full glass of water and do not lie down for at least 30 minutes after. 10 tablet 5 05/31/20 25 Active Problems Problem Noted Date Diagnosed Date Community acquired pneumonia of right lower lobe of lung 05/26/2025 Essential hypertension 05/07/2018 Hypercholesterolemia 05/07/2018 Encounters Date Type Department Care Team Description 05/26/2025 10:45 AM EDT Office Visit [facility] [address] [place] [phone] Kayden Hopson MD Nasal congestion (Primary Dx); Seasonal allergies; Postnasal drip; Wheezing; Cough, unspecified type; Expiratory respiratory crackles; Essential hypertension; Hypercholesterolemia 05/26/2025 Results Follow-Up [facility] [address] [place] [address] Kayden Hopson MD XR Chest 2 Views 05/26/2025 Travel 05/25/2025 Telephone [facility] [address] [place] [address] Bhupendra Wyatt MA chart prep 05/19/2025 Patient Outreach [facility] [address] [place], [place] [phone] Kayden Hopson MD Pre-visit Planning (SDOH unable to reach [facility] ) from Last 3 Months Social [...] of 2 - Risk 2-dose series) 1977 RSV Patients and Patients Aged 60 years or older (1 - Risk 50-74 years 1-dose series) 2008 Zoster Vaccines (1 of 2) 2008 Hepatitis B Vaccines (1 of 3 - Risk 3-dose series) 2018 COVID-19 Vaccine (4 - 2024-2 6 season) 2025 08/13/2021, 12/18/2020, 2020 Influenza Vaccine (#1) 2025 07/03/2007 Alcohol/Substance Use Screening 05/26/2026 05/26/2025 Depression Screening 05/26/2026 05/26/2025, 05/26/2025 SDOH Screening 05/26/2026 05/26/2025 Tobacco Screening 05/26/2026 05/26/2025 DTaP/Tdap/Td Vaccines (3 - T d or Tdap) 10/21/2028 10/21/2018, 12/23/2008 Lipid Panel 05/30/2030 05/30/2025, 04/28/2020 Pneumococcal Vaccine: 50+ Years Completed 09/06/2024 HIB [...] Associated Diagnosis Comments LIPID PANEL, STANDARD Routine 05/30/2025 9:30 AM EDT Hypercholesterolemi a COMPREHENSIVE METABOLIC PANEL Routine 05/30/2025 9:30 AM EDT Essential hypertension Hypercholesterolemi a CBC WITH AUTO DIFFERENTIAL Routine 05/30/2025 9:30 AM EDT Nasal congestion Cough, unspecified type Expiratory respiratory crackles XR CHEST 2 VIEWS Routine 05/26/2025 12:0 3 PM EDT Wheezing Cough, unspecified type Expiratory respiratory crackles from Last 3 Months Results * (ABNORMAL) CBC auto differential (05/30/2025 9:30 AM EDT) White Blood Count 12.8(H) 4.8 - 10.8 X10*3/uL [facility] Red Blood Count 4.10(L) 4.60 - 5.80 X10*6/uL [facility] Hemoglobin 11.4(L) 14.0 - 18.0 g/dl [facility] Hematocrit 36.0(L) 42.0 - 52.0 % [facility] Mean Corpuscular Volume 87.8 80.0 - 98.0 fL [facility] Mean Corpuscular Hemoglobin 27.8 27.0 - 33.0 pg [facility] Mean Corpuscular HGB Conc 31.7 31.0 - 36.0 g/dl [facility] Red Cell Distribution Width 12.3 11.0 - 16.0 % [facility] Platelet Count 322 160 - 400 X10*3/uL [facility] Mean Platelet Volume 9.1(L) 9.4 - 12.4 fL [facility] Neutrophils Percent Auto 68.6 45 - 73 % [facility] Imm Gran Pct Auto 1.2(H) 0.0 - 0.4 % [facility] Lymphocytes Percent Auto 20.6 20 - 40 % [facility] Monocytes Percent Auto 9.2 2 - 11 % [facility] Eosinophils Percent Auto 0.2 0 - 4 % [facility] Basophils Percent Auto 0.2 0 - 2 % [facility] NRBC Pct Auto 0.0 0.0 - 0.2 /100WBC [facility] Neutrophils Absolute Auto 8.8(H) 2.0 - 8.3 x10*3/uL [facility] Imm Gran Abs Auto 0.15(H) 0.00 - 0.03 X10*3/uL [facility] Lymphocytes Absolute Auto 2.6 1.2 - 4.9 X10*3/uL [facility] Monocytes Absolute Auto 1.2 0.1 - 1.2 X10*3/uL [facility] Eosinophils Absolute Auto 0.0 0.0 - 0.4 X10*3/uL [facility] Basophils Absolute Auto 0.0 0.0 - 0.2 X10*3/uL [facility] NRBC Abs Auto 0.000 0.0 - 0.012 X10*3/uL [facility] Blood Venous blood specimen / Unknown 05/30/2025 9:30 AM EDT 05/30/2025 11:02 AM EDT us Kayden Name MD LAB BLOOD ORDERABLES Final Resul t Performing Organization Address City/State/[facility] Co de Phone Number [facility] [address] [place] [phone] * (ABNORMAL) Lipid Panel, Standard (05/30/2025 9:30 AM EDT) Triglycerides 66 <150 mg/dL [facility] Comment:Desirable Triglyceri de: less than 150 mg/dLBorderline High Triglyceride 150-199 mg/dLHigh Triglyceride: 200-499 mg/dLVery High Triglyceride: greater than or equal to 5OO mg/dL Cholesterol 171 <200 mg/dL [facility] Comment:Desirable Cholestero l: less than 200 mg/dLBorderline High Cholesterol: 200-239 mg/dLHigh Cholesterol: greater than 239 mg/dL LDL Cholesterol Calculated 111(H) <100 mg/dL [facility] Comment:Desirable LDL: less than 100 mg/dLNear Optimal/Above Optimal LDL: 110- 129 mg/dLBorderline High LDL: 130-159 mg/dLHigh LDL: 160-189 mg/dLVery High LDL: greater than or equal to 190 mg/dL HDL Cholesterol 47 >40 mg/dL [facility] Comment:Desirable HDL: great er than 40 mg/dL Note: This HDL assay may give artificially low results in patients with liver disease. Blood Venous blood specimen / Unknown 05/30/2025 9:30 AM EDT 05/30/2025 11:02 AM EDT us Kayden Hopson MD LAB BLOOD ORDERABLES Final Resul t [facility] [address] [place] [phone] * (ABNORMAL) Comprehensive Metabolic Panel (05/30/2025 9:30 AM EDT) Sodium 142 135 - 145 mmol/L [facility] Potassium 3.8 3.3 - 5.1 mmol/L [facility] Chloride 106 96 - 108 mmol/L [facility] Carbon Dioxide 29 22 - 29 mmol/L [facility] Anion Gap 11(L) 12 - 20 [facility] Urea Nitrogen (BUN) 19(H) 9 - 16 mg/dL [facility] Creatinine, Serum 0.71 0.5 - 1.4 mg/dL [facility] Estimated Glomerular Filt Rate >60 [facility] Comment:Chronic Kidney Disea se: Estimated GFR < 60 mL/min/1.82g4Disnvw Kidney Disease: Estimated GFR < 15 mL/min/1.73m2 Glucose 95 60 - 115 mg/dL [facility] Calcium 9.1 8.4 - 10.2 mg/dL [facility] Bilirubin, Total 0.5 0.0 - 1.0 mg/dL [facility] Aspartate Amino Transferase 31 5 - 37 U/L [facility] Alanine Aminotransferase 21 0 - 40 U/L [facility] Total Protein 7.1 6.5 - 8.0 g/dL [facility] Albumin Level 4.4 3.5 - 5.0 g/dL [facility] Alkaline Phosphatase 62 39 - 117 U/L [facility] Blood Venous blood specimen / Unknown 05/30/2025 9:30 AM EDT 05/30/2025 11:02 AM EDT us Kayden Hopson MD LAB BLOOD ORDERABLES Final Resul t [facility] [address] [place] [phone] * XR Chest 2 Views (05/26/2025 12:03 PM EDT) Anatomical Region Laterality Modality Chest Radiographic Estelle ging 05/26/2025 12:0 3 PM EDT Narrative 05/26/2025 12:13 PM EDT [address] [address] XRay Report Signed Patient: Yonatan Mendoza MR#: [id number] 29 : 1960 Acct:[id number] Age/Sex: 64 / M ADM Date: 05/26/25 Loc: KULDE[facility] Attending Dr: Kayden Hopson MD Ordering Physician: Kayden Hopson MD Date of Service: 05/26/25 Procedure(s): XR chest 2V Accession Number(s): [id number] cc: Kayden Hopson MD Reason for Exam: [...] 05/26/25 1210 DD/ 1203 TD/TT: 05/26/25 1206 Senior Category Manager: Procedure Note Donotuseinterpreter, Image - 05/26/[address] [address] XRay Report Signed Patient: Yonatan Mendoza RMR#: [id number] [birth year] : 9Acct:[id number] Age/Sex: 64 / MADM Date: 05/26/25 Loc: HO.XRAY Attending Dr: Kayden Hopson MD Ordering Physician: Kayden Hopson MD Date of Service: 05/26/25 Procedure(s): XR chest 2V Accession Number(s): [id number] cc: Kayden Hopson MD Reason for Exam: [...] 05/26/25 1210 DD/ 1203 TD/TT: 05/26/25 1206 Senior Category Manager: Kayden Hopson MD IMG XR PROCEDURES Final Result from Last 3 Months Insurance [facility] ONE CARE < 65 [place] [id number] Care Teams Information Systems Project Manager Relationship Specialty Start Date End Date Name, MD Kayden [address] [place] [phone] PCP - General Internal Medicine 06/06/25
--- OUTSIDE RECORDS SUMMARY | 2025-06-30 10:29 | XMS_ITS | Patient Health Record ---
Author Organization [facility] Address [address] [place] [phone] Care Team Providers Care Mathematical Technician Name Role Phone Luis Lopez Jr [phone] Reason For Referral No Information Plan Of Treatment No Information
== END 2025-06-30 09:14 | disposition home or self-care (01) ==
LOC: HO.XRAY 09:13
PROVIDERS: PCP Internal Medicine Geriatric Medicine; Visit Provider Nurse Practitioner Family
DX: R13.10 Dysphagia, unspecified (principal); K21.9 Gastro-esophageal reflux disease without esophagitis
CPT/HCPCS: 74246

== ENCOUNTER → 2025-06-30 09:15 | Outpatient (BNV) | payer OTHER, SELFPAY | PROVIDERS: PCP Internal Medicine Geriatric Medicine; Visit Provider Radiology Diagnostic Radiology | DX: K21.9 Gastro-esophageal reflux disease without esophagitis (principal) | CPT/HCPCS: 74246 ==

== ENCOUNTER 2025-07-27 10:53 | Emergency (ER) | payer OTHER, SELFPAY ==
--- NOTE | 2025-07-27 | ECG_ITS ---
Test Reason : chest pain Blood Pressure : */* mmHG Vent. Rate : 79 BPM Atrial Rate : 79 BPM P-R Int : 242 ms QRS Dur : 86 ms QT Int : 384 ms P-R-T Axes : 67 15 77 degrees QTcB Int : 440 ms Sinus rhythm with 1st degree A-V block with Premature atrial complexes Possible Left atrial enlargement Left ventricular hypertrophy ( R in aVL , Sokolow-Gerber , Romhilt-Shepherd ) Abnormal ECG When compared with ECG of 12-Jul-2019 00:12, Premature atrial complexes are now Present T wave inversion no longer evident in Lateral leads Referred By: Owen Walter Electronically Signed By: JESSENIA BROWN MD
--- OUTSIDE RECORDS SUMMARY | 2025-07-27 09:45 | XMS_ITS | Encounter Summary ---
Author Organization [employer] Address [address] [facility] [address] [place] [address] Care Team Providers Care Investigation Division Sergeant Name Role Phone Name, Kayden THURSTON Primary Care Provider [phone] Reason for Visit * Reason Comments Chest pain Encounter Details Date Type Department [facility] Description 07/27/2025 9:45 AM EST Office Visit [facility] [address] [place] [address] [phone] Name, MD Kayden [address] [place] [address] Chest pain, unspecified type (Primary Dx) Social History Tobacco Use Types Packs/Day Years [...] Sign Reading Time Taken Comments Blood Pressure 146/86 07/27/2025 10:16 AM EST Pulse 74 07/27/2025 10:16 AM EST Temperature 37 C (98.6 F) 07/27/2025 10:16 AM EST Respiratory Rate 18 07/27/2025 10:16 AM EST Oxygen Saturation 99% 07/27/2025 10:16 AM EST Inhaled Oxygen Concentration - - Weight 90.9 kg (200 lb 6.4 oz) 07/27/2025 10:16 AM EST Height 175.3 cm (5' 9 ) 07/27/2025 10:16 AM EST Body Mass Index 29.59 07/27/2025 10:16 AM EST documented in this encounter Progress Notes * Kayden Hopson MD - 07/27/2025 9:45 AM EST Subjective Patient ID: Yonatan Mendoza is a 64 y.o. male who presents for Chest pain. Patient comes complaining of chest pain on and off for the past 3-4 days Chest pain is associated with dizziness. He is also having sore throat for the past 3 days No syncope, no diaphoresis, no fever, no cough Patient is not a smoker He has hypertension and high cholesterol Review of Systems Constitutional: Negative for chills, fatigue and fever. HENT: Positive for sore throat. Respiratory: Negative for cough, chest tightness and shortness of breath. Cardiovascular: Positive for chest pain. Negative for palpitations and leg swelling. Gastrointestinal: Negative for abdominal pain and blood in stool. Objective Vitals: 07/27/25 1016 BP: (!) 146/86 BP Location: Left arm Patient Position: Sitting BP Cuff Size: Adult Pulse: 74 Resp: 18 Temp: 98.6 ??F (37 ??C) TempSrc: Temporal SpO2: 99% Weight: 200 lb 6.4 oz (90.9 kg) Height: 5' 9 (1.753 m) Physical Exam Constitutional: Appearance: Normal appearance. Cardiovascular: Rate and Rhythm: Normal rate and regular rhythm. Heart sounds: No murmur heard. Pulmonary: Effort: Pulmonary effort is normal. No respiratory distress. Breath sounds: No wheezing, rhonchi or rales. Abdominal: Palpations: Abdomen is soft. Tenderness: There is no abdominal tenderness. Musculoskeletal: Right lower leg: No edema. Left lower leg: No edema. Neurological: Mental Status: He is alert. Latest Reference Range & Units 07/27/25 10:28 Rapid Strep A Screen Negative, None Detected Negative Influenza A Negative, Indeterminate Negative Influenza B Negative, Indeterminate Negative Coronavirus Antigen PCR Negative, Indeterminate, None Detected, Trace, 3+, Specimen unsatisfactory for evaluation, Weakly Positive, 1+, 2+ Negative Assessment/Plan Diagnoses and all orders for this visit: Chest pain, unspecified type Comments: Patient presents with chest pain on and off for several days associated with dizziness Abnormal EKG with possible inferior ischemia I recommend stat ASA today Referral to ER by ambulance to r/o acute coronary syndrome Orders: - POCT Rapid Strep A MOSQUERA ID NOW - POCT Rapid Influenza A MOSQUERA ID NOW - POCT Rapid Influenza B MOSQUERA ID NOW - POCT Rapid COVID-19 Mosquera NOW - aspirin chewable tablet 325 mg - ECG 12 lead documented in this encounter Plan of Treatment Not on file documented as of this encounter Procedures Procedure Name Priority Date/Time Associated Diagnosis Comments POCT INFLUENZA B (ID NOW RAPID MOLECULAR) Routine 07/27/2025 10:28 AM EST Chest pain, unspecified type POCT INFLUENZA A (ID NOW RAPID MOLECULAR) Routine 07/27/2025 10:28 AM EST Chest pain, unspecified type POC MOSQUERA ID NOW STREP A Routine 07/27/2025 10:28 AM EST Chest pain, unspecified type POCT COVID-19 AG MOSQUERA ID NOW Routine 07/27/2025 10:28 AM EST Chest pain, unspecified type ECG 12-LEAD Routine 07/27/2025 10:24 AM EST Chest pain, unspecified type documented in this encounter Results * POCT Rapid COVID-19 Mosquera NOW (07/27/2025 10:28 AM EST) Pathologist [facility] Coronavirus Antigen PCR Negative Negative, Indeterminate, None Detected, Trace, 3+, Specimen unsatisfactory for evaluation, Weakly Positive, 1+, 2+ QC Media Lot # [id number] Lot# Expiration Date Swab 07/27/2025 10:2 8 AM EST Kayden Hopson MD POINT OF CARE TEST ENTER/EDIT OR DERABLES Final Result * POCT Rapid Influenza B MOSQUERA ID NOW (07/27/2025 10:28 AM EST) [facility] Influenza B Negative Negative, Indeterminate [facility] QC Media Lot # [id number] [facility] Lot# Expiration Date [facility] Swab 07/27/2025 10:2 8 AM EST Kayden Hopson MD POINT OF CARE TEST ENTER/EDIT OR DERABLES Final Result [facility] [address] [place] [phone] * POCT Rapid Influenza A MOSQUERA ID NOW (07/27/2025 10:28 AM EST) Pathologist [facility] Influenza A Negative Negative, Indeterminate [facility] QC Media Lot # [id number] [facility] Lot# Expiration Date [facility] Swab 07/27/2025 10:2 8 AM EST us Kayden Hopson MD POINT OF CARE TEST ENTER/EDIT OR DERABLES Final Result Performing Organization Address [facility] Co de Phone Number [facility] [address] [place] [phone] * POCT Rapid Strep A MOSQUERA ID NOW (07/27/2025 10:28 AM EST) Rapid Strep A Screen Negative Negative, None Detected [facility] QC Media Lot # [id number] [facility] Lot# Expiration Date [facility] Swab 07/27/2025 10:2 8 AM EST us Kayden Hopson MD POINT OF CARE TEST ENTER/EDIT OR DERABLES Final Result Performing Organization Address [facility] Co de Phone Number [facility] [address] [place] [phone] * ECG 12 lead (07/27/2025 10:24 AM EST) Narrative NameKayden MD - 07/27/2025 10:24 AM EST NSR, HR 76, ST segment elevation II, III, AVF. Abnormal EKG. Result Thaddeus Hopson MD ECG ORDERABLES Final Result documented in this encounter Visit Diagnoses Diagnosis Chest pain, unspecified type- Primary documented in this encounter Administered Medications Inactive Administered Medications - up to 3 most recent administrations Medication Order MAR Action Action Date Dose Rate Site aspirin chewable tablet 325 mg 325 mg, Oral, Once, On Fri07/27/25 at 1030, For 1 doseIndications:Chest pain, unspecified type Given 07/27/2025 10:30 AM EST 325 mg documented in this encounter Additional Health Concerns Assessment Noted Time PHQ-9 Depression Total Score: 1 05/26/20 10:42 AM EDT documented as of this encounter Care Teams Investigation Division Sergeant Relationship Specialty Start Date End Date Name, MD Kayden [address] [place] [address] PCP - General Internal Medicine 06/06/25 documented as of this encounter
[2025-07-27 11:00] VITALS: BP 179/86; PULSE 80; O2SAT 100
[2025-07-27 11:19] VITALS: BP 137/67; PULSE 78; RESP 16; TEMP 36.6; O2SAT 98; BMI 29.4
--- NOTE | 2025-07-27 11:29 | MHC.EDTECH ---
EKG completed in triage prior to an order. Reviewed by physician and documented accordingly.
[2025-07-27 11:34] LABS: MANUAL DIFF FLAG NO
[2025-07-27 11:38] LABS: Hematocrit 38.3 % (42.0-52.0); Hemoglobin 12.5 g/dl (14.0-18.0); Imm Gran Abs Auto 0.02 X10*3/uL (0.00-0.03); Imm Gran Pct Auto 0.3 % (0.0-0.4); Lymphocytes Absolute Auto 1.0 X10*3/uL (1.2-4.9); Mean Corpuscular HGB Conc 32.6 g/dl (31.0-36.0); Mean Corpuscular Hemoglobin 28.3 pg (27.0-33.0); Mean Corpuscular Volume 86.8 fL (80.0-98.0); NRBC Abs Auto 0.000 X10*3/uL (0.0-0.012); NRBC Pct Auto 0.0 /100WBC (0.0-0.2); Platelet Count 192 X10*3/uL (160-400); Red Blood Count 4.41 X10*6/uL (4.60-5.80); White Blood Count 6.2 X10*3/uL (4.8-10.8)
[2025-07-27 11:53] LABS: Alanine Aminotransferase 22 U/L (0-40); Albumin Level 4.7 g/dL (3.5-5.0); Alkaline Phosphatase 66 U/L (39-117); Anion Gap 10 (12-20); Aspartate Amino Transferase 27 U/L (5-37); Blood Urea Nitrogen 17 mg/dL (9-16); Calcium 9.3 mg/dL (8.4-10.2); Carbon Dioxide 28 mmol/L (22-29); Chloride 106 mmol/L (96-108); Creatinine Clr Calc Pharmacy 94.9; Estimated Glomerular Filt Rate > 60; Potassium 4.0 mmol/L (3.3-5.1); Sodium 140 mmol/L (135-145); Total Protein 7.3 g/dL (6.5-8.0)
--- NOTE | 2025-07-27 11:55 | ED.CHESTPAIN ---
HPI - Chest Pain General Chief Complaint: Chest Pain Stated Complaint: CP,S[facility] THROAT,[facility],BP 178/80 PER EMS Time Seen by Provider: 07/27/25 10:59 History of Present Illness ED Provider: malcolm HPI narrative: This is a pleasant 64-year-old male with a history of hypertension he comes in at the request of his PCP from office during routine visit he has been complaining of at least a week of intermittent pinpoint left chest discomfort about midclavicular line 1 or 2 rib spaces below the nipple lasting sec at a time. No exertional component no pleuritic component. He has a mild dry cough feels like there is phlegm stuck in his throat but has no voice change or dyspnea. No recent fevers or chills or hemoptysis. No chest wall trauma Related Data Home Medications ?Medication ?Instructions ?Recorded ?Confirmed albuterol sulfate 90 mcg/actuation 2 puff inhalation Q6H PRN 09/22/24 05/06/25 aerosol inhaler methocarbamol 500 mg tablet 500 mg PO TID 12/15/24 05/06/25 Previous Rx's ?Medication ?Instructions ?Recorded aspirin 81 mg chewable tablet 81 mg PO DAILY 90 days #90 tabs 11/19/21 triamcinolone acetonide 55 mcg 1 spray intranasal DAILY 30 days 02/13/23 nasal spray aerosol (Nasacort) #16.9 mL acetaminophen 500 mg tablet 500 mg PO Q6H PRN fever or pain 08/19/23 (Tylenol Extra Strength) #30 tabs ibuprofen 800 mg tablet 800 mg PO Q8H PRN pain 30 days #90 03/02/24 tabs lidocaine 5 % topical patch 1 patch topical DAILY #30 ea 03/02/24 simvastatin 20 mg tablet 20 mg PO BEDTIME 90 days #90 tabs 09/06/24 baclofen 5 mg tablet 5 mg PO BID #60 tabs 12/02/24 polyethylene glycol 3350 17 17 g PO DAILY #510 grams 12/29/24 gram/dose oral powder (Miralax) levocetirizine 5 mg tablet 5 mg PO DAILY PRN allergy symptoms 03/07/25 90 days #90 tabs lansoprazole 30 mg capsule,delayed 30 mg PO DAILY #30 caps 04/11/25 release fluticasone propionate 50 1 spray intranasal .COMPLEX #16 05/06/25 mcg/actuation nasal grams spray,suspension (Flonase Allergy Relief) sodium chloride 0.65 % nasal spray 1 spray intranasal BID PRN dry 05/06/25 aerosol (Saline Nasal Mist) nasal passages #44 mL metoprolol succinate 25 mg 12.5 mg (1/2 x 25 mg) PO BID 90 05/09/25 tablet,extended release 24 hr days #90 tabs cholecalciferol (vitamin D3) 25 25 mcg PO DAILY 90 days #90 caps 05/11/25 mcg (1,000 unit) capsule lisinopril 20 mg tablet 20 mg PO DAILY #90 tabs 07/15/25 Allergies Allergy/AdvReac Type Severity Reaction Status Date / Time No Known Allergies (No Known Allergy Verified 07/27/25 11: Allergies*) [facility] Past Medical History Medical History Chronic constipation Screen for colon cancer Dyspepsia Dyslipidemia Essential hypertension Surgical History Hx laparoscopic cholecystectomy Hx of colonoscopy Right leg injury Family History Family History Mother Heart problem Father No problems noted. Social History Social History Housing: House Alcohol intake: never Patient Tobacco Use Status: Never used Tobacco e-Cigarette/Vaping Use: Never Used Second Hand Smoke Exposure: No Advance Directives: No Advance Directives Information Provided: No service: No Current occupational status: disabled Current occupation: rt hand Cognitive needs: No Hearing needs: No Vision needs: Yes Physical Exam Exam: Exam: EXAM: Gen: Alert, awake, well appearing, well hydrated. Head: Atraumatic Eyes: Anicteric, Normal conjunctiva. ENT: Moist mucosa, no pallor. ? Neck: Supple. Skin: ?No observable rash or bruising on exposed or examined skin Respiratory: Breathing comfortably, No distress.Clear to auscultation bilaterally, symmetric chest expansion, No wheeze, rales, ronchi. Cardiovascular: Regular rate and rhythm. No murmurs or rub. Well perfused periphery, warm extremities. No edema. ?Mild tenderness at the inferior lower chest wall no bruising or crepitus Abdominal: No focal tenderness. Soft, no objective distension. No palpable masses or obvious organomegaly. ?No guarding, no rebound tenderness or other peritoneal findings. : No flank tenderness. Neuro: Alert. Gross movement of all extremities intact. ? Psych: Calm. Cooperative. MSK: No grossly visible deformity. Vital signs: See flowsheet Vital Signs: Vital Signs: Last Vital Signs Temp 98.7 F 07/27/25 13:41 Pulse 80 07/27/25 13:41 Resp 16 07/27/25 13:41 BP 121/62 07/27/25 13:41 Pulse Ox 98 07/27/25 13:41 O2 Del Method Room Air 07/27/25 13:41 BMI result Body Mass Index 29.4 Medical Decision Making Medical Decision Making MDM Narrative: Medical Decision Makin-year-old male with 1 week of intermittent atypical chest pain lasting sec at a time few times a day. No active pain in the ED. Looks well comfortable hypertensive in the office. Could be white coat or essential. He does have a systolic murmur. He has got symmetric pulses and no symptomatology suggestive of PE or aortic dissection. A troponin to exclude ACS given the duration. ECG: Sinus rhythm TX 242, ventricular rate 79, no acute ischemic changes. Preliminary Favored Differential Diagnosis: Atypical chest pain, musculoskeletal pain, pleuritis, unlikely ACS among additional considered etiologies Testing Interpreted Independently: See above Radiology or Lab testing Results Reviewed: ?See below for details Consults: ?See below for details Independent Historians/External Chart Reviews: ?See below for details Social Determinants of Health Impacting MDM/Planning: ?See below for details Lab Data 07/27/25 11:27 07/27/25 11:27 Labs: Lab Results 07/27/25 Range/Units 11:27 WBC 6.2 (4.8-10.8) X10*3/uL RBC 4.41 L (4.60-5.80) X10*6/uL Hgb 12.5 L (14.0-18.0) g/dl Hct 38.3 L (42.0-52.0) % MCV 86.8 (80.0-98.0) fL MCH 28.3 (27.0-33.0) pg MCHC 32.6 (31.0-36.0) g/dl RDW 13.1 (11.0-16.0) % Plt Count 192 D (160-400) X10*3/uL MPV 9.0 L (9.4-12.4) fL Immature Gran % (Auto) 0.3 (0.0-0.4) % Neut % (Auto) 73.4 H (45-73) % Lymph % (Auto) 16.6 L (20-40) % [place] % (Auto) 7.9 (2-11) % Eos % (Auto) 1.3 (0-4) % Baso % (Auto) 0.5 (0-2) % Lymph # (Auto) 1.0 L (1.2-4.9) X10*3/uL [place] # (Auto) 0.5 (0.1-1.2) X10*3/uL Eos # (Auto) 0.1 (0.0-0.4) X10*3/uL Baso # (Auto) 0.0 (0.0-0.2) X10*3/uL Abs Immat Gran (auto) 0.02 (0.00-0.03) X10*3/uL Absolute Neuts (auto) 4.6 (2.0-8.3) x10*3/uL Absolute Nucleated RBC 0.000 (0.0-0.012) X10*3/uL Nucleated RBC % (auto) 0.0 (0.0-0.2) /100WBC ESR 19 (1-20) MM/HR Sodium 140 (135-145) mmol/L Potassium 4.0 (3.3-5.1) mmol/L Chloride 106 (96-108) mmol/L Carbon Dioxide 28 (22-29) mmol/L Anion Gap 10 L (12-20) BUN 17 H (9-16) mg/dL Creatinine 0.85 (0.5-1.4) mg/dL Estim Creat Clear Calc 94.9 Estimated GFR > 60 Random Glucose 99 (60-115) mg/dL Lactic Acid 0.8 (0.5-2.0) mmol/L Calcium 9.3 (8.4-10.2) mg/dL Total Bilirubin 0.7 (0.0-1.0) mg/dL AST 27 (5-37) U/L ALT 22 (0-40) U/L Alkaline Phosphatase 66 (39-117) U/L Troponin I High Sens 2.8 (<3.5-35.0) ng/L C-Reactive Protein 0.36 (< or = 0.50) mg/dL Total Protein 7.3 (6.5-8.0) g/dL Albumin 4.7 (3.5-5.0) g/dL Discharge Plan Discharge Clinical Impression: Acute upper respiratory infection, Atypical chest pain Patient Disposition: Home, Self-Care Instructions: Chest Pain (DC) Additional Instructions: You were evaluated for chest pain with EKG lab work. You had a reassuring blood tests and EKG here she will follow up with your primary doctor Prescriptions: No Action baclofen 5 mg tablet 5 mg PO BID Qty: 60 0RF polyethylene glycol 3350 [Miralax] 17 gram/dose powder 17 g PO DAILY Qty: 510 2RF metoprolol succinate 25 mg tablet extended release 24 hr 12.5 mg PO BID 90 Days Qty: 90 1RF cholecalciferol (vitamin D3) 25 mcg (1,000 unit) capsule 25 mcg PO DAILY 90 Days Qty: 90 1RF lisinopril 20 mg tablet 20 mg PO DAILY Qty: 90 0RF acetaminophen [Tylenol Extra Strength] 500 mg tablet 500 mg PO Q6H PRN (Reason: fever or pain) Qty: 30 0RF aspirin 81 mg tablet,chewable 81 mg PO DAILY 90 Days Qty: 90 1RF lidocaine 5 % adhesive patch,medicated 1 patch topical DAILY Qty: 30 0RF Rx Instructions: leave on most painful area for up to 12 hrs ibuprofen 800 mg tablet 800 mg PO Q8H PRN (Reason: pain) 30 Days Qty: 90 2RF triamcinolone acetonide [Nasacort] 55 mcg aerosol,spray 1 spray intranasal DAILY 30 Days Qty: 16.9 0RF Rx Instructions: administer into each nostril simvastatin 20 mg tablet 20 mg PO BEDTIME 90 Days Qty: 90 2RF albuterol sulfate 90 mcg/actuation HFA aerosol inhaler 2 puff inhalation Q6H PRN lansoprazole 30 mg capsule,delayed release(DR/EC) 30 mg PO DAILY Qty: 30 3RF fluticasone propionate [Flonase Allergy Relief] 50 mcg/actuation spray,suspension 1 spray intranasal .COMPLEX Qty: 16 3RF Rx Instructions: 1 spray intranasally BID for 1 month. Followed by one time daily.; administer into each nostril Saline Nasal Mist 0.65 % aerosol,spray 1 spray intranasal BID PRN (Reason: dry nasal passages) Qty: 44 3RF levocetirizine 5 mg tablet 5 mg PO DAILY PRN (Reason: allergy symptoms) 90 Days Qty: 90 0RF methocarbamol 500 mg tablet 500 mg PO TID Interventions: ED Discharge Assessment Last Done: 07/27/25 13:41 Discharge Date/Time: 07/27/25 13:42 Print Language: Uzbek
[2025-07-27 12:09] VITALS: BP 121/62; PULSE 80; RESP 16; TEMP 37.1; O2SAT 98
[2025-07-27 13:00] LABS: Troponin-I High Sensitivity 2.8 ng/L (<3.5-35.0)
[2025-07-27 13:41] VITALS: BP 121/62; PULSE 80; RESP 16; TEMP 37.1; O2SAT 98
--- OUTSIDE RECORDS SUMMARY | 2025-07-27 17:54 | XMS_ITS | Encounter Summary ---
Author Organization [employer] Address [address] [facility] [address] [place] [address] Care Team Providers Care Guide Cruise Name Role Phone Name, Kayden THURSTON Primary Care Provider [phone] Reason for Visit * Reason Onset Date Comments Nurse Triage 07/25/2025 Encounter Details Date Type Department Care Team ([facility] Contact Info) Description 07/25/2025 Telephone [facility] [address] [place], [place] [phone] Name, MD Kayden [address] [place] [address] Nurse Triage Social History Tobacco Use Types Packs/Day Years [...] encounter Miscellaneous Notes * Telephone Encounter - Radhika Soto RN - 07/25/2025 2:53 PM EST TC x2 placed to patient [phone] using BLS #ID [id number] regarding below message. RN left an VM forthe patient to Nurse triage line. PT to F/U PRN. * Telephone Encounter - Radhika Soto RN - 07/25/2025 11:46 AM EST TC placed to patient [phone] using BLS #ID [id number] regarding below message. RN left an VM for the patient to CB Nurse triage line. RN will re-attempt. * Telephone Encounter - Janeth Aponte - 07/25/2025 11:01 AM EST Symptom: Headache Outcome: Schedule a same-day appointment or talk to a nurse or provider today Reason: Caller denied all higher acuity questions The caller accepted this outcome. Contact pt at [phone] (belgian) documented in this encounter Plan of Treatment Not on file documented as of this encounter Visit Diagnoses Not on filedocumented in this encounter Additional Health Concerns Assessment Noted Time PHQ-9 Depression Total Score: 1 05/26/20 10:42 AM EDT documented as of this encounter Care Teams Guide Cruise Relationship Specialty Start Date End Date Name, MD Kayden [address] [place] [address] PCP - General Internal Medicine 06/06/25 documented as of this encounter
--- OUTSIDE RECORDS SUMMARY | 2025-07-27 17:54 | XMS_ITS | Encounter Summary ---
Author Organization [employer] Address [address] [facility] [address] [place] [address] Care Team Providers Care Project Account Manager Name Role Phone Name, Kayden THURSTON Primary Care Provider [phone] Encounter Details Date Type Department Care Team (Latest Contact Info) Description 07/27/2025 Travel Social History Tobacco Use Types Packs/Day [...] AM EDT documented as of this encounter Plan of Treatment Not on file documented as of this encounter Visit Diagnoses Not on filedocumented in this encounter Additional Health Concerns Assessment Noted Time PHQ-9 Depression Total Score: 1 05/26/20 10:42 AM EDT documented as of this encounter Care Teams Project Account Manager Relationship Specialty Start Date End Date Name, MD Kayden [address] [place] [address] PCP - General Internal Medicine 06/06/25 documented as of this encounter
--- OUTSIDE RECORDS SUMMARY | 2025-07-27 17:56 | XMS_ITS | Clinical Summary ---
Author Organization [employer] Address [address] [place] [address] [address] [place] [address] Care Team Providers Care Fitness Services Manager Name Role Phone Name, Kayden THURSTON Primary Care Provider [phone] Allergies No known active allergies Medications lisinopril [...] 1 capsule by mouth Once per day. Active fluticasone (Flonase) 50 MCG/ACT nasal spray [...] 18 g 11 5 05/26/20 26 Active Hospital, Clinic, or Other Facility Administered Medication Ordered Dose Route Frequency Start Date End Date Status aspirin chewable tablet 325 mgIndications:Chest pain, unspecified type 325 mg PO Once 07/27/2025 07/27/2025 Ended Active Problems Problem Noted Date Diagnosed Date Community acquired pneumonia of right lower lobe of lung 05/26/2025 Essential hypertension 05/07/2018 Hypercholesterolemia 05/07/2018 Encounters Date Type Department Care Team Description 07/27/2025 9:45 AM EST Office Visit [address] [address] Kayden Hopson MD Chest pain, unspecified type (Primary Dx) 07/27/2025 Travel 07/25/[address] [address] Kayden Hopson MD Nurse Triage 06/30/2025 Orders Only [facility] External Provider, 05/26/2025 10:45 AM EDT Office Visit [address] [address] Kayden Hopson MD Nasal congestion (Primary Dx); Seasonal allergies; Postnasal drip; Wheezing; Cough, unspecified type; Expiratory respiratory crackles; Essential hypertension; Hypercholesterolemi a 05/26/2025 Results Follow-Up [address] [address] Kayden Hopson MD XR Chest 2 Views 05/26/2025 Travel 05/25/[address] [address] Bhupendra Wyatt [place] chart prep 05/19/2025 Patient Outreach [facility] [address] [place], [place] [phone] Kayden Hopson MD Pre-visit Planning ([facility] unable to reach [facility] ) from Last 3 Months Social [...] Mass Index 29.59 07/27/2025 10:16 AM EST Plan of Treatment Health Maintenance Due Date [...] 05/26/2025 SDOH Screening 05/26/2026 05/26/2025 Tobacco Screening 07/27/2026 07/27/2025 DTaP/Tdap/Td Vaccines (3 - T d or [...] Procedure Name Priority Date/Time Associated Diagnosis Comments HIGH SENSITIVITY TROPONIN I Routine 07/27/2025 11:27 AM EST POCT COVID-19 AG [place] ID NOW Routine 07/27/2025 10:28 AM EST Chest pain, unspecified type POCT INFLUENZA B (ID NOW RAPID MOLECULAR) Routine 07/27/2025 10:28 AM EST Chest pain, unspecified type POCT INFLUENZA A (ID NOW RAPID MOLECULAR) Routine 07/27/2025 10:28 AM EST Chest pain, unspecified type POC [place] ID NOW STREP A Routine 07/27/2025 10:28 AM EST Chest pain, unspecified type ECG 12-LEAD Routine 07/27/2025 10:24 AM EST Chest pain, unspecified type FL UPPER GI W AIR W BARIUM SWALLOW Routine 06/30/2025 10:00 AM EST LIPID PANEL, STANDARD Routine 05/30/2025 9:30 AM EDT Hypercholesterolemi a COMPREHENSIVE METABOLIC PANEL Routine 05/30/2025 9:30 AM EDT Essential hypertension Hypercholesterolemi a CBC WITH AUTO DIFFERENTIAL Routine 05/30/2025 9:30 AM EDT Nasal congestion Cough, unspecified type Expiratory respiratory crackles XR CHEST 2 VIEWS Routine 05/26/2025 12:0 3 PM EDT Wheezing Cough, unspecified type Expiratory respiratory crackles from Last 3 Months Results * High Sensitivity Troponin I (07/27/2025 11:27 AM EST) TROPONIN I HIGH SENSITIVITY 2.8 <3.5 - 35.0 ng/L [facility] Comment:The [place] high sens itivity Troponin-I results should beused in conjunction with other diagnostic information suchas ECG, clinical observations and information, and patientsymptoms to aid in the diagnosis of LA. 07/27/2025 11:2 7 AM EST 07/27/2025 12:33 PM EST us Generic External Data Provider LAB BLOOD ORDERAB LES Final Result [facility] [address] [place] [phone] * POCT Rapid Influenza B [place] ID NOW (07/27/2025 10:28 AM EST) Influenza B Negative Negative, Indeterminate [facility] QC Media Lot # [id number] [facility] Lot# Expiration Date [facility] Swab 07/27/2025 10:2 8 AM EST us Kayden Hopson MD POINT OF CARE TEST ENTER/EDIT OR DERABLES Final Result Performing Organization Address [facility] Co de Phone Number [facility] [address] [place] [phone] * POCT Rapid Influenza A [place] ID NOW (07/27/2025 10:28 AM EST) Influenza A Negative Negative, Indeterminate [facility] QC Media Lot # [id number] [facility] Lot# Expiration Date [facility] Swab 07/27/2025 10:2 8 AM EST us Kayden Hopson MD POINT OF CARE TEST ENTER/EDIT OR DERABLES Final Result [facility] [address] [place] [phone] * POCT Rapid Strep A [place] ID NOW (07/27/2025 10:28 AM EST) Pathologist [facility] Rapid Strep A Screen Negative Negative, None Detected [facility] QC Media Lot # [id number] [facility] Lot# Expiration Date [facility] Swab 07/27/2025 10:2 8 AM EST us Kayden Hopson MD POINT OF CARE TEST ENTER/EDIT OR DERABLES Final Result [facility] [address] [place] [phone] * POCT Rapid COVID-19 [place] NOW (07/27/2025 10:28 AM EST) Coronavirus Antigen PCR Negative Negative, Indeterminate, None Detected, Trace, 3+, Specimen unsatisfactory for evaluation, Weakly Positive, 1+, 2+ QC Media Lot # [id number] Lot# Expiration Date Swab 07/27/2025 10:2 8 AM EST us Kayden Hopson MD POINT OF CARE TEST ENTER/EDIT OR DERABLES Final Result * ECG 12 lead (07/27/2025 10:24 AM EST) Narrative Name, MD Kayden - 07/27/2025 10:24 AM EST NSR, HR 76, ST segment elevation II, III, AVF. Abnormal EKG. us Kayden Hopson MD ECG ORDERABLES Final Result * FL Upper GI w/air w/Barium Swallow (06/30/2025 10:00 AM EST) Anatomical Region Laterality Modality Body Radiographic Estelle ging 06/30/2025 10:0 0 AM EST Narrative 06/30/2025 2:12 PM EST [address] [address] Fluoroscopy Report Signed Patient: Yonatan Mendoza MR#: [id number] [birth year] : 1960 Acct:[id number] Age/Sex: 64 / M ADM Date: 06/30/25 Loc: [facility] Attending Dr: Amber Rutledge DROP HAMMER SET UP OPERATOR-BC Ordering Physician: Amber RutledgeP-DAPHNE Date of Service: 06/30/25 Procedure(s): FL upper GI w air w Ba Swallow Accession Number(s): [id number] cc: Kayden Hopson MD; Amber Rutledge DROP HAMMER SET UP OPERATOR-BC Reason for Exam: K21.9 - Gastro-esophageal reflux disease without esophagitis EXAMINATION: XR UPPER GI SERIES WITH barium swallow CLINICAL INFORMATION: Gastroesophageal reflux disease without esophagitis COMPARISON: None available. TECHNIQUE: Routine upper GI air contrast study with barium in upright and lying position was performed subsequently barium swallow with solid food and barium tablet was performed in upright view. FINDINGS: Following oral administration of thick barium and effervescent granules there is slight delay in initiation of oral phase. On bolus reaching the pharynx there is normal antegrade flow seen through the pharynx, esophagus into stomach without any obstruction, narrowing or stricture. No intraluminal filling defect or extrinsic compression seen. Minimal retention of barium seen in the valleculae and piriform sinuses without laryngeal penetration or aspiration. On placing patient supine and prone lying there is increased gastric secretions. The mucosal pattern of stomach, duodenal bulb and the sweep is normal. The course, caliber and peristalsis in the stomach, duodenal bulb and the sweep is normal. On oral administration of solid food coated barium paste there is normal oral mastication and propagation bolus from the oral cavity through the pharynx, esophagus and stomach. On oral administration of barium tablet there is spontaneous passage through the pharynx or esophagus into stomach with no obstruction seen. FLUOROSCOPY TIME: 2 minute and 27 seconds DOSE AREA PRODUCT: 2174 uGy-m2 (microgray-meter squared) FL/FL upper GI w air w Ba Swallow IMPRESSION: Increased gastric secretions suggestive of gastritis. No gastroesophageal reflux or hiatal hernia. Electronically signed by: Carlos A Vega MD 06/30/2025 02:09 PM [facility] Dictated By: Carlos A Vega MD Signed By: <Electronically signed by Carlos A Vega MD in OV> 06/30/25 1409 DD/ 1000 TD/TT: 06/30/25 1018 Asphalt Tamping Machine Operator: SHARAN Procedure Note Donotuseinterpreter, Image - 06/30/[address] [address] Fluoroscopy Report Signed Patient: Yonatan Mendoza RMR#: [id number] [birth year] : 9Acct:[id number] Age/Sex: 64 / MADM Date: 06/30/25 Loc: HO.XRAY Attending Dr: Amber Rutledge [facility] Ordering Physician: Amber Rutledge [facility] Date of Service: 06/30/25 Procedure(s): FL upper GI w air w Ba Swallow Accession Number(s): [id number] cc: Name,Kayden THURSTON; Amber Rutledge [facility] Reason for Exam: K21.9 - Gastro-esophageal reflux disease withoutesophagitis EXAMINATION: XR UPPER GI SERIES WITH barium swallow CLINICAL INFORMATION: Gastroesophageal reflux disease without esophagitis COMPARISON: None available. TECHNIQUE: Routine upper GI air contrast study with barium in upright and lying position was performed subsequently barium swallow with solid food and barium tablet was performed in upright view. FINDINGS: Following oral administration of thick barium and effervescent granules there is slight delay in initiation of oral phase. On bolus reaching the pharynx there is normal antegrade flow seen through the pharynx, esophagus into stomach without any obstruction, narrowing or stricture. No intraluminal filling defect or extrinsic compression seen. Minimal retention of barium seen in the valleculae and piriform sinuses without laryngeal penetration or aspiration. On placing patient supine and prone lying there is increased gastric secretions. The mucosal pattern of stomach, duodenal bulb and the sweep is normal. The course, caliber and peristalsis in the stomach, duodenal bulb and the sweep is normal. On oral administration of solid food coated barium paste there is normal oral mastication and propagation bolus from the oral cavity through the pharynx, esophagus and stomach. On oral administration of barium tablet there is spontaneous passage through the pharynx or esophagus into stomach with no obstruction seen. FLUOROSCOPY TIME: 2 minute and 27 seconds DOSE AREA PRODUCT: 2174 uGy-m2 (microgray-meter squared) FL/FL upper GI w air w Ba Swallow IMPRESSION: Increased gastric secretions suggestive of gastritis. No gastroesophageal reflux or hiatal hernia. Electronically signed by: Carlos A Vega MD 06/30/2025 02:09 PM [facility] Dictated By: Carlos A Vega MD Signed By: <Electronically signed by Carlos A Vega MD in OV> 06/30/25 1409 DD/ 1000 TD/TT: 06/30/25 1018 Asphalt Tamping Machine Operator: SHARAN us External Provider IMG FLU OROSCOPY PROCEDURES Final Result * (ABNORMAL) CBC auto differential (05/30/2025 9:30 AM EDT) White Blood Count 12.8(H) 4.8 - 10.8 X10*3/uL [facility] Red Blood Count 4.10(L) 4.60 - 5.80 X10*6/uL [facility] Hemoglobin 11.4(L) 14.0 - 18.0 g/dl [facility] Hematocrit 36.0(L) 42.0 - 52.0 % [facility] Mean Corpuscular Volume 87.8 80.0 - 98.0 fL [facility] Mean Corpuscular Hemoglobin 27.8 27.0 - 33.0 pg [facility] Mean Corpuscular HGB Conc 31.7 31.0 - 36.0 g/dl [facility] Red Cell Distribution Width 12.3 11.0 - 16.0 % [facility] Platelet Count 322 160 - 400 X10*3/uL [facility] Mean Platelet Volume 9.1(L) 9.4 - 12.4 fL [facility] Neutrophils Percent Auto 68.6 45 - 73 % [facility] Imm Gran Pct Auto 1.2(H) 0.0 - 0.4 % [facility] Lymphocytes Percent Auto 20.6 20 - 40 % [facility] Monocytes Percent Auto 9.2 2 - 11 % [facility] Eosinophils Percent Auto 0.2 0 - 4 % [facility] Basophils Percent Auto 0.2 0 - 2 % [facility] NRBC Pct Auto 0.0 0.0 - 0.2 /100WBC [facility] Neutrophils Absolute Auto 8.8(H) 2.0 - 8.3 x10*3/uL [facility] Imm Gran Abs Auto 0.15(H) 0.00 - 0.03 X10*3/uL [facility] Lymphocytes Absolute Auto 2.6 1.2 - 4.9 X10*3/uL [facility] Monocytes Absolute Auto 1.2 0.1 - 1.2 X10*3/uL [facility] Eosinophils Absolute Auto 0.0 0.0 - 0.4 X10*3/uL [facility] Basophils Absolute Auto 0.0 0.0 - 0.2 X10*3/uL [facility] NRBC Abs Auto 0.000 0.0 - 0.012 X10*3/uL [facility] Blood Venous blood specimen / Unknown 05/30/2025 9:30 AM EDT 05/30/2025 11:02 AM EDT us Kayden Name MD LAB BLOOD ORDERABLES Final Resul t [facility] [address] [place] [phone] * (ABNORMAL) Lipid Panel, Standard (05/30/2025 9:30 AM EDT) Triglycerides 66 <150 mg/dL [facility] Comment:Desirable Triglyceri de: less than 150 mg/dLBorderline High Triglyceride 150-199 mg/dLHigh Triglyceride: 200-499 mg/dLVery High Triglyceride: greater than or equal to 5OO mg/dL Cholesterol 171 <200 mg/dL [facility] Comment:Desirable Cholestero l: less than 200 mg/dLBorderline High Cholesterol: 200-239 mg/dLHigh Cholesterol: greater than 239 mg/dL LDL Cholesterol Calculated 111(H) <100 mg/dL [facility] Comment:Desirable LDL: less than 100 mg/dLNear Optimal/Above Optimal LDL: 110- 129 mg/dLBorderline High LDL: 130-159 mg/dLHigh LDL: 160-189 mg/dLVery High LDL: greater than or equal to 190 mg/dL HDL Cholesterol 47 >40 mg/dL [facility] Comment:Desirable HDL: great er than 40 mg/dL Note: This HDL assay may give artificially low results in patients with liver disease. Blood Venous blood specimen / Unknown 05/30/2025 9:30 AM EDT 05/30/2025 11:02 AM EDT us Kayden Hopson MD LAB BLOOD ORDERABLES Final Resul t Performing Organization Address City/[facility]/ZIP Co de Phone Number [facility] [address] [place] [phone] * (ABNORMAL) Comprehensive Metabolic Panel (05/30/2025 9:30 AM EDT) Sodium 142 135 - 145 mmol/L [facility] Potassium 3.8 3.3 - 5.1 mmol/L [facility] Chloride 106 96 - 108 mmol/L [facility] Carbon Dioxide 29 22 - 29 mmol/L [facility] Anion Gap 11(L) 12 - 20 [facility] Urea Nitrogen (BUN) 19(H) 9 - 16 mg/dL [facility] Creatinine, Serum 0.71 0.5 - 1.4 mg/dL [facility] Estimated Glomerular Filt Rate >60 [facility] Comment:Chronic Kidney Disea se: Estimated GFR < 60 mL/min/1.54k5Psyuol Kidney Disease: Estimated GFR < 15 mL/min/1.73m2 Glucose 95 60 - 115 mg/dL [facility] Calcium 9.1 8.4 - 10.2 mg/dL [facility] Bilirubin, Total 0.5 0.0 - 1.0 mg/dL [facility] Aspartate Amino Transferase 31 5 - 37 U/L [facility] Alanine Aminotransferase 21 0 - 40 U/L [facility] Total Protein 7.1 6.5 - 8.0 g/dL [facility] Albumin Level 4.4 3.5 - 5.0 g/dL [facility] Alkaline Phosphatase 62 39 - 117 U/L [facility] Blood Venous blood specimen / Unknown 05/30/2025 9:30 AM EDT 05/30/2025 11:02 AM EDT us Kayden Hopson MD LAB BLOOD ORDERABLES Final Resul t [facility] [address] [place] [phone] * XR Chest 2 Views (05/26/2025 12:03 PM EDT) Anatomical Region Laterality Modality Chest Radiographic Estelle ging 05/26/2025 12:0 3 PM EDT Narrative 05/26/2025 12:13 PM EDT [address] [address] XRay Report Signed Patient: Yonatan Mendoza MR#: [id number] [birth year] : 1960 Acct:[id number] Age/Sex: 64 / M ADM Date: 05/26/25 Loc: KULDE[facility] Attending Dr: Kayden Hopson MD Ordering Physician: Kayden Hopson MD Date of Service: 05/26/25 Procedure(s): XR chest 2V Accession Number(s): [id number] cc: Kayden Hopson MD Reason for Exam: [...] 05/26/25 1210 DD/ 1203 TD/TT: 05/26/25 1206 Asphalt Tamping Machine Operator: Procedure Note Donotuseinterpreter, Image - 05/26/[address] [address] XRay Report Signed Patient: Yonatan Mendoza RMR#: [id number] 29 : 1960cct:[id number] Age/Sex: 64 / MADM Date: 05/26/25 Loc: HO.XRAY Attending Dr: Kayden Hopson MD Ordering Physician: Kayden Hopson MD Date of Service: 05/26/25 Procedure(s): XR chest 2V Accession Number(s): [id number] cc: Kayden Hopson MD Reason for Exam: [...] 05/26/25 1210 DD/ 1203 TD/TT: 05/26/25 1206 Asphalt Tamping Machine Operator: Kayden Hopson MD IMG XR PROCEDURES Final Result from Last 3 Months Insurance [facility] CARE < 65 [place] [id number] Care Teams Fitness Services Manager Relationship Specialty Start Date End Date Name, MD Kayden [address] [place] [phone] PCP - General Internal Medicine 06/06/25
== END 2025-07-27 13:42 | disposition home or self-care (01) ==
PROVIDERS: Emergency Provider Emergency Medicine; PCP Internal Medicine Geriatric Medicine
DX: J06.9 Acute upper respiratory infection, unspecified (principal); R07.89 Other chest pain; R05.9 Cough, unspecified; I10 Essential (primary) hypertension; E78.5 Hyperlipidemia, unspecified; Z79.82 Long term (current) use of aspirin; Z79.899 Other long term (current) drug therapy; Z79.02 Long term (current) use of antithrombotics/antiplatelets
CPT/HCPCS: 36415; 80053; 83605; 84484; 85025; 85652; 86140; 93005; 99283; 99284

== ENCOUNTER → 2025-07-27 10:56 | Outpatient (BNV) | payer OTHER, SELFPAY | PROVIDERS: Emergency Provider Emergency Medicine; PCP Internal Medicine Geriatric Medicine; Visit Provider Internal Medicine Cardiovascular Disease | DX: I44.0 Atrioventricular block, first degree (principal); I49.1 Atrial premature depolarization; I51.7 Cardiomegaly | CPT/HCPCS: 93010 ==